=== PATIENT | female | born 1960 | race Caucasian/White ===

== ENCOUNTER 2020-07-27 12:14 | Emergency (ER) | payer OTHER, SELFPAY ==
[2020-07-27 12:47] VITALS: BP 148/69; PULSE 68; RESP 20; TEMP 36.8; O2SAT 99; BMI 3700.6
--- NOTE | 2020-07-27 13:34 | ED.EYEPROB ---
HPI - Eye Problem General Chief complaint: Eye Problems Stated complaint: EYE PAIN Time Seen by Provider: 07/27/20 13:34 History of Present Illness HPI Narrative: patient complains of pain in the left lower lid and the skin around the left lower lid, no injury, no pain in the eye itself, no vision changes, she has had some watery discharge from the eye, like does not hurt the eye This is been going on for 3 days Level of discomfort is moderate Related Data Previous Rx's Medication Instructions Recorded cephalexin [Keflex] 500 mg PO QID 7 Days #28 cap 07/27/20 erythromycin 0.5 inch OPHTHALMIC (EYE) TID 5 07/27/20 Days #3.5 g ibuprofen 600 mg PO Q6H PRN #20 tab 07/27/20 oxycodone 5 mg PO Q6H PRN #10 cap 07/27/20 Allergies Allergy/AdvReac Type Severity Reaction Status Date / Time No Known Allergies Allergy Verified 07/27/20 12:46 Review of Systems Review of Systems: there is no fever no chills no vision loss, there is some scant watery discharge there is no photosensitivity, no rash, no ear pain no jaw pain no neck pain PMFSH Past Medical History Source: nursing notes reviewed Medical History (Updated 07/27/20 @ 13:56 by TERRANCE Crane) Alcoholic cirrhosis of liver without ascites Healthy adult Social History Social History Advance Directives: No Advance Directives Information Provided: No Physical Exam Vital Signs: Vital Signs: Vital Signs Temp Pulse Resp BP Pulse Ox 07/27/20 12:47 98.2 F 68 20 148/69 H 99 Body Mass Index 3700.6 patient is A&O x3, no acute distress The facial exam and eye exam the lower lid and inferior orbital area are red, warm to the touch and tender, the conjunctiva of the lower lid of the left eye is red and inflamed, there is watery discharge, pupils equal round reactive to light, extraocular motions are intact, there is no photosensitivity Pharynx is clear Neck is supple Respiratory no acute respiratory distress Extremities full range of motion x4 Skin no rash Neuro A&O x3 Course Course Course Narrative: patient with no pain to the eye or vision changes, but does have pain in left lower lid which is swollen with some erythema warmth and tenderness around the inferior orbit consistent with periorbital cellulitis Discharge Plan Discharge Clinical Impression: Periorbital cellulitis of left eye Periorbital cellulitis Qualifiers: Laterality: left Qualified Code(s): L03.213 - Periorbital cellulitis Patient Disposition: Home, Self-Care Additional Instructions: I believe you have an infection of the skin around her lower lid and inflammation of the lower lid so we are treating with antibiotic pills and an antibiotic eye ointment Follow with primary doctor next week if not better Return to ER any time for vision loss, eye pain, spreading redness, worse pain and swelling, fever, any worse condition or any concerns I wrote you for 1 day off today as this could may be contagious so 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
[2020-07-27] MEDS: cephALEXin 500 MG CAPSULE PO (13:45)
[2020-07-27] MEDS: Erythromycin Base 0.5% Oph Oin 1 GM TUBE 1 CM EYE-LEFT (13:45)
[2020-07-27] MEDS: Ibuprofen 600 MG TABLET PO (13:45)
== END 2020-07-27 14:05 | disposition home or self-care (01) ==
PROVIDERS: Emergency Provider Emergency Medicine; PCP Student in an Organized Health Care Education/Training Program
DX: L03.213 Periorbital cellulitis (principal); H57.12 Ocular pain, left eye; Z79.899 Other long term (current) drug therapy
CPT/HCPCS: 99283

== ENCOUNTER 2020-09-13 09:19 | Outpatient (REF) | payer OTHER, SELFPAY ==
[2020-09-13 10:58] LABS: MANUAL DIFF FLAG NO
[2020-09-13 11:05] LABS: Basophils Absolute Auto 0.1 X10*3/uL (0.0-0.2); Basophils Percent Auto 0.9 % (0-2); Eosinophils Absolute Auto 0.1 X10*3/uL (0.0-0.4); Eosinophils Percent Auto 2.2 % (0-4); Hematocrit 45.9 % (37-47); Hemoglobin 15.5 g/dl (12.0-16.0); Imm Gran Abs Auto 0.02 X10*3/uL (0.00-0.03); Imm Gran Pct Auto 0.3 % (0.0-0.4); Lymphocytes Absolute Auto 2.4 X10*3/uL (1.2-4.9); Lymphocytes Percent Auto 41.6 % (20-40); Mean Corpuscular HGB Conc 33.8 g/dl (31.0-35.0); Mean Corpuscular Hemoglobin 33.8 pg (27.0-33.0); Mean Platelet Volume 10.8 fL (9.4-12.3); Monocytes Absolute Auto 0.5 X10*3/uL (0.1-1.2); Monocytes Percent Auto 8.7 % (2-11); Neutrophils Absolute Auto 2.7 X10*3/uL (2.0-8.3); Neutrophils Percent Auto 46.3 % (45-73); Platelet Count 272 X10*3/uL (160-400); Red Blood Count 4.59 X10*6/uL (4.20-5.50); Red Cell Distribution Width 12.9 % (11.0-16.0); White Blood Count 5.9 X10*3/uL (4.8-10.8)
[2020-09-13 11:43] LABS: Alanine Aminotransferase 19 U/L (0-31); Albumin Level 4.2 g/dL (3.5-5.0); Alkaline Phosphatase 54 U/L (39-117); Anion Gap 13 (12-20); Aspartate Amino Transferase 20 U/L (5-31); Bilirubin Total 0.7 mg/dL (0.0-1.0); Blood Urea Nitrogen 22 mg/dL (9-16); C Reactive Protein 0.03 mg/dL (< or = 0.50); Calcium 8.8 mg/dL (8.4-10.2); Carbon Dioxide 28 mmol/L (22-29); Chloride 102 mmol/L (96-108); Estimated Glomerular Filt Rate 53; Glucose Random 119 mg/dL (60-115); Potassium 4.3 mmol/l (3.3-5.1); Sodium 139 mmol/L (135-145); Total Protein 6.7 g/dL (6.5-8.0)
== END 2020-09-13 09:20 | disposition home or self-care (01) ==
LOC: HO.HMGCLDS 09:19
PROVIDERS: PCP Student in an Organized Health Care Education/Training Program; Visit Provider Student in an Organized Health Care Education/Training Program
DX: M05.9 Rheumatoid arthritis with rheumatoid factor, unspecified (principal); M81.0 Age-related osteoporosis without current pathological fracture; Z79.52 Long term (current) use of systemic steroids
CPT/HCPCS: 36415; 80053; 85025; 86140

== ENCOUNTER → 2020-09-17 13:53 | Outpatient (BNVA) | payer OTHER, SELFPAY | PROVIDERS: Visit Provider Student in an Organized Health Care Education/Training Program | DX: Z76.89 Persons encountering health services in other specified circumstances (principal) ==

== ENCOUNTER 2020-09-27 10:07 | Outpatient (REF) | payer OTHER, SELFPAY ==
--- NOTE | 2020-09-27 10:11 | MM_ITS ---
EXAMINATION: BONE DENSITOMETRY CLINICAL INDICATION: Age-related osteoporosis without current pathological fracture. COMPARISON: Baseline BD dated 08/23/2018. TECHNIQUE: Using a [employer] DXA System (software version: 13.1) manufactured by [employer], dual-energy x-ray absorptiometry was performed of the lumbar spine and left hip. The images are of good technical quality. Summary results are attached. FINDINGS: AP SPINE L1-L4: Current: BMD 0.799 g/cm2, Z-score -1.5, T-score -3.2, osteoporosis, 3.7% decrease from baseline (<5% change is not significant). Baseline: BMD 0.830 g/cm2. LEFT FEMUR, NECK: Current: BMD 0.698 g/cm2, Z-score -0.9, T-score -2.4, osteopenia. Baseline: BMD 0.717 g/cm2. LEFT FEMUR, TOTAL: Current: BMD 0.763 g/cm2, Z-score -0.7, T-score -1.9, osteopenia, 2.7% decrease from baseline (<5% change is not significant). Baseline: BMD 0.784 g/cm2. IDENTIFIED RISK FACTORS: Rheumatoid arthritis, tobacco use (current smoker), 3 or more alcoholic drinks/day. Early menopause, secondary osteoporosis, glucocorticoids (chronic), left oophorectomy. HISTORY OF FRACTURE: None listed. MEDICATIONS: Calcium supplements or multivitamin, vitamin D. MM/XR DEXA axial skeleton IMPRESSION: 1. DIAGNOSIS: Osteoporosis based on the lowest T-score value of -3.2 in the lumbar spine applying World Health Organization criteria. 2. 10-YEAR FRACTURE RISK PREDICTION, FRAX: Major osteoporotic fracture (clinical spine, forearm, hip or shoulder) 28.5%. Hip fracture 13.1%. 3. Treatment Recommendations: NOF guidelines recommend consideration for treatment in postmenopausal women and men age 50 and older presenting with the following: -A hip or vertebral (clinical or morphometric) fracture. -T-score less than or equal to -2.5 at the femoral neck or spine after appropriate evaluation to exclude secondary causes. -Low bone mass at the hip or spine and a 10-year fracture probability by FRAX of greater than or equal to 3% for hip fracture or greater than or equal to 20% for major osteoporotic fracture based on the [place] adapted WHO algorithm. 4. Other Recommendations: All treatment decisions require clinical judgment and consideration of individual patient factors, including patient preferences, comorbidities, previous drug use, risk factors not captured in the FRAX model (e.g. frailty, falls, vitamin D deficiency, increased bone turnover, interval significant decline in bone density) and possible under or overestimation of fracture risk by FRAX. Additional medical evaluation for secondary cause of low bone mineral density may be appropriate. FUTURE SCAN RECOMMENDATION: People with diagnosed cases of osteoporosis or at high risk for fracture should have regular bone mineral density tests. For patients eligible for Medicare, routine testing is allowed once every 2 years. The testing frequency can be increased to one year for patients who have rapidly progressing disease, those who are receiving or discontinuing medical therapy to restore bone mass, or have additional risk factors.
== END 2020-09-27 10:08 | disposition home or self-care (01) ==
LOC: HO.MAMMO 10:07
PROVIDERS: PCP Student in an Organized Health Care Education/Training Program; Visit Provider Student in an Organized Health Care Education/Training Program
DX: M81.0 Age-related osteoporosis without current pathological fracture (principal)
CPT/HCPCS: 77080

== ENCOUNTER 2021-01-08 11:18 | Outpatient (REF) | payer OTHER, SELFPAY ==
[2021-01-08 12:13] LABS: MANUAL DIFF FLAG NO
[2021-01-08 12:17] LABS: Basophils Percent Auto 0.4 % (0-2); Eosinophils Absolute Auto 0.2 X10*3/uL (0.0-0.4); Eosinophils Percent Auto 1.5 % (0-4); Hematocrit 45.2 % (37-47); Hemoglobin 15.2 g/dl (12.0-16.0); Imm Gran Abs Auto 0.04 X10*3/uL (0.00-0.03); Imm Gran Pct Auto 0.4 % (0.0-0.4); Lymphocytes Absolute Auto 2.8 X10*3/uL (1.2-4.9); Lymphocytes Percent Auto 28.9 % (20-40); Mean Corpuscular HGB Conc 33.6 g/dl (31.0-35.0); Mean Corpuscular Hemoglobin 33.4 pg (27.0-33.0); Mean Corpuscular Volume 99.3 fL (80-98); Mean Platelet Volume 9.9 fL (9.4-12.3); Monocytes Absolute Auto 0.8 X10*3/uL (0.1-1.2); Monocytes Percent Auto 8.3 % (2-11); Neutrophils Absolute Auto 5.9 X10*3/uL (2.0-8.3); Neutrophils Percent Auto 60.5 % (45-73); Platelet Count 281 X10*3/uL (160-400); Red Blood Count 4.55 X10*6/uL (4.20-5.50); Red Cell Distribution Width 13.4 % (11.0-16.0); White Blood Count 9.7 X10*3/uL (4.8-10.8)
[2021-01-08 12:53] LABS: Alanine Aminotransferase 16 U/L (0-31); Albumin Level 4.8 g/dL (3.5-5.0); Alkaline Phosphatase 52 U/L (39-117); Anion Gap 16 (12-20); Aspartate Amino Transferase 20 U/L (5-31); Bilirubin Total 0.5 mg/dL (0.0-1.0); Blood Urea Nitrogen 21 mg/dL (9-16); C Reactive Protein 0.04 mg/dL (< or = 0.50); Calcium 9.4 mg/dL (8.4-10.2); Carbon Dioxide 26 mmol/L (22-29); Chloride 101 mmol/L (96-108); Estimated Glomerular Filt Rate > 60; Glucose Random 94 mg/dL (60-115); Potassium 4.1 mmol/L (3.3-5.1); Sodium 139 mmol/L (135-145); Total Protein 7.5 g/dL (6.5-8.0)
[2021-01-08 13:05] LABS: Erythrocyte Sedimentation Rate 2 MM/HR (0-20)
[2021-01-12 13:46] LABS: Vitamin D 25-OH, D2 <4 ng/mL; Vitamin D 25-OH, D3 33 ng/mL; Vitamin D 25-OH, Total 33 ng/mL (30-100)
== END 2021-01-08 11:19 | disposition home or self-care (01) ==
LOC: HO.LAB 11:18
PROVIDERS: PCP Student in an Organized Health Care Education/Training Program; Visit Provider Student in an Organized Health Care Education/Training Program
DX: M05.9 Rheumatoid arthritis with rheumatoid factor, unspecified (principal); M81.0 Age-related osteoporosis without current pathological fracture; Z79.52 Long term (current) use of systemic steroids; Z79.899 Other long term (current) drug therapy
CPT/HCPCS: 36415; 80053; 82306; 85025; 85652; 86140

== ENCOUNTER → 2021-01-24 10:50 | Outpatient (BNVA) | payer OTHER, SELFPAY | PROVIDERS: PCP Student in an Organized Health Care Education/Training Program; Visit Provider Student in an Organized Health Care Education/Training Program | DX: B19.10 Unspecified viral hepatitis B without hepatic coma (principal) | CPT/HCPCS: 96402; J0897 ==

== ENCOUNTER 2021-02-10 09:40 | Outpatient (REF) | payer OTHER, SELFPAY ==
--- NOTE | ~2021-02-10 | US_ITS ---
EXAMINATION: US COMPLETE ABDOMEN WITH LIVER ELASTOGRAPHY CLINICAL INFORMATION: Bilateral tightness the COMPARISON: Previous abdominal ultrasound September 2019 TECHNIQUE: Real-time imaging of the abdominal viscera. Noninvasive ultrasound liver fibrosis assessment is performed using [employer] ElastPQ point quantification shear wave elastography (pSWE) with a C5-2 MHz transducer. Multiple elastography samples are obtained. FINDINGS: PANCREAS: Normal. ABDOMINAL AORTA: The proximal, middle, and distal aortic segments are normal in caliber. INFERIOR VENA CAVA: Visualized portions are normal. LIVER: Liver echotexture is slightly increased. The liver is normal in size and contour.. No focal lesion or intrahepatic biliary duct dilatation. The right lobe measures 16 cm in length. The left lobe measures 13 cm in length. Portal flow is normal/hepatopedal Shear wave liver elastography median stiffness is 1.3 m/s (reference: normal median stiffness is 1.3 m/s or less). IQR/median stiffness to assess sampling precision is 0.14 (reference: good quality data set is IQR/median stiffness of 0.15 or less). GALLBLADDER: Normal. The gallbladder is physiologically distended without evidence of stones, sludge, polyps, wall thickening or pericholecystic fluid. COMMON BILE DUCT: Normal in caliber measuring 0.5 cm in diameter. RIGHT KIDNEY: Normal No hydronephrosis. No renal calculi or focal parenchymal lesions. The kidney measures 9 cm in maximum dimension. LEFT KIDNEY: There is a 4 mm cyst in the lower pole. No hydronephrosis. No renal calculi or focal parenchymal lesions. The kidney measures 9.5 cm in maximum dimension. SPLEEN: Normal. The spleen measures 8.8 cm in maximum dimension. FREE FLUID: None. US/US abdomen comp w elastography IMPRESSION: 1. Impression: Slightly echogenic liver. Small left renal cyst. 2. Liver elastography: Normal. REFERENCE: Society of Radiologists in Ultrasound Liver Stiffness Thresholds (2020): LIVER STIFFNESS THRESHOLDS: *Liver Stiffness equal or less than 1.3 m/s: High probability of being normal. *Liver Stiffness less than 1.7 m/s: In the absence of other known clinical signs, rules out compensated advanced chronic liver disease. *Liver Stiffness 1.7-2.1 m/s: Suggestive of compensated advanced chronic liver disease but need further test for confirmation. *Liver Stiffness over 2.1 m/s: Rules in compensated advanced chronic liver disease. *Liver Stiffness over 2.4 m/s: Suggestive of clinically significant portal hypertension. QUALITY OF DATA SET: *IQR/Median value equal or less than 0.15 implies a quality data set. *IQR/Median value over 0.15 implies a poor quality data set. SIGNIFICANT CHANGE FROM PRIOR EXAM: Significant change if liver stiffness measurement is 10% or greater from prior exam. OTHER CONSIDERATIONS: The stage of liver fibrosis may be overestimated in the setting of acute hepatitis, liver inflammation, elevated liver function tests, hepatic vascular congestion, obstructive cholestasis, non-fasting state, and infiltrative diseases such as amyloidosis and lymphoma. In some patients with NAFLD, the liver stiffness thresholds for compensated advanced chronic liver disease may be lower. In causes other than viral hepatitis and NAFLD, liver stiffness thresholds are not well established.
== END 2021-02-10 09:41 | disposition home or self-care (01) ==
LOC: HO.US 09:40
PROVIDERS: Visit Provider Internal Medicine
DX: B19.10 Unspecified viral hepatitis B without hepatic coma (principal)
CPT/HCPCS: 76705; 76981

== ENCOUNTER → 2021-02-28 09:54 | Outpatient (BNVA) | payer OTHER, SELFPAY | PROVIDERS: Visit Provider Internal Medicine ==

== ENCOUNTER → 2021-05-20 09:14 | Outpatient (BNVA) | payer OTHER, SELFPAY | PROVIDERS: PCP Student in an Organized Health Care Education/Training Program; Visit Provider Student in an Organized Health Care Education/Training Program ==

== ENCOUNTER 2021-07-29 09:37 | Outpatient (REF) | payer OTHER, SELFPAY ==
[2021-07-29 10:52] LABS: MANUAL DIFF FLAG NO
[2021-07-29 11:06] LABS: Basophils Absolute Auto 0.1 X10*3/uL (0.0-0.2); Basophils Percent Auto 0.5 % (0-2); Eosinophils Absolute Auto 0.2 X10*3/uL (0.0-0.4); Eosinophils Percent Auto 1.6 % (0-4); Hematocrit 44.4 % (37-47); Hemoglobin 15.2 g/dl (12.0-16.0); Imm Gran Abs Auto 0.05 X10*3/uL (0.00-0.03); Imm Gran Pct Auto 0.5 % (0.0-0.4); Lymphocytes Absolute Auto 2.5 X10*3/uL (1.2-4.9); Lymphocytes Percent Auto 24.6 % (20-40); Mean Corpuscular HGB Conc 34.2 g/dl (31.0-35.0); Mean Corpuscular Hemoglobin 34.2 pg (27.0-33.0); Monocytes Absolute Auto 0.7 X10*3/uL (0.1-1.2); Monocytes Percent Auto 7.2 % (2-11); Neutrophils Absolute Auto 6.8 X10*3/uL (2.0-8.3); Neutrophils Percent Auto 65.6 % (45-73); Platelet Count 263 X10*3/uL (160-400); Red Blood Count 4.44 X10*6/uL (4.20-5.50); White Blood Count 10.3 X10*3/uL (4.8-10.8)
[2021-07-29 11:29] LABS: Alanine Aminotransferase 16 U/L (0-31); Albumin Level 4.6 g/dL (3.5-5.0); Alkaline Phosphatase 44 U/L (39-117); Anion Gap 14 (12-20); Aspartate Amino Transferase 18 U/L (5-31); Bilirubin Total 0.4 mg/dL (0.0-1.0); Blood Urea Nitrogen 25 mg/dL (9-16); C Reactive Protein 0.02 mg/dL (< or = 0.50); Calcium 9.8 mg/dL (8.4-10.2); Carbon Dioxide 27 mmol/L (22-29); Chloride 103 mmol/L (96-108); Estimated Glomerular Filt Rate 56; Glucose Random 104 mg/dL (60-115); Potassium 4.4 mmol/L (3.3-5.1); Sodium 140 mmol/L (135-145); Total Protein 7.3 g/dL (6.5-8.0)
[2021-07-29 11:47] LABS: Erythrocyte Sedimentation Rate 2 MM/HR (0-20)
[2021-07-29 11:50] LABS: Vitamin D 25-OH Total 39.2 ng/mL (>30)
== END 2021-07-29 09:38 | disposition home or self-care (01) ==
LOC: HO.LAB 09:37
PROVIDERS: PCP Student in an Organized Health Care Education/Training Program; Visit Provider Nurse Practitioner Family
DX: M81.0 Age-related osteoporosis without current pathological fracture (principal); M05.9 Rheumatoid arthritis with rheumatoid factor, unspecified; Z79.52 Long term (current) use of systemic steroids
CPT/HCPCS: 36415; 80053; 82306; 85025; 85652; 86140; 96372; J0897

== ENCOUNTER → 2021-11-17 10:07 | Outpatient (BNVA) | payer OTHER, SELFPAY | PROVIDERS: PCP Student in an Organized Health Care Education/Training Program; Visit Provider Nurse Practitioner Family ==

== ENCOUNTER 2021-12-05 07:55 | Outpatient (REF) | payer OTHER, SELFPAY ==
--- NOTE | ~2021-12-05 | XR_ITS ---
EXAMINATION: XR ELBOW, LEFT CLINICAL INFORMATION: Pain. COMPARISON: None TECHNIQUE: AP, lateral, and oblique views of the left elbow. FINDINGS: There is moderate soft tissue swelling along the posterior elbow joint likely olecranon bursitis. No acute fracture, dislocation or subluxation seen. No loose bodies. No anterior joint effusion seen. XR/XR elbow LT min 3V IMPRESSION: Soft tissue swelling along posterior to olecranon process likely olecranon bursitis.
== END 2021-12-05 07:56 | disposition home or self-care (01) ==
LOC: HO.HOSX 07:55
PROVIDERS: Visit Provider Physician Assistant
DX: M70.22 Olecranon bursitis, left elbow (principal)
CPT/HCPCS: 73080

== ENCOUNTER 2022-02-13 09:09 | Outpatient (REF) | payer OTHER, SELFPAY ==
[2022-02-13 09:31] LABS: MANUAL DIFF FLAG NO
[2022-02-13 10:03] LABS: Basophils Percent Auto 0.3 % (0-2); Eosinophils Absolute Auto 0.2 X10*3/uL (0.0-0.4); Eosinophils Percent Auto 2.2 % (0-4); Hematocrit 45.2 % (37.0-47.0); Imm Gran Abs Auto 0.04 X10*3/uL (0.00-0.03); Imm Gran Pct Auto 0.4 % (0.0-0.4); Lymphocytes Absolute Auto 2.5 X10*3/uL (1.2-4.9); Lymphocytes Percent Auto 28.4 % (20-40); Mean Corpuscular HGB Conc 33.2 g/dl (31.0-35.0); Mean Corpuscular Volume 99.3 fL (80.0-98.0); Mean Platelet Volume 10.6 fL (9.4-12.3); Monocytes Absolute Auto 0.7 X10*3/uL (0.1-1.2); Monocytes Percent Auto 7.5 % (2-11); Neutrophils Absolute Auto 5.4 x10*3/uL (2.0-8.3); Neutrophils Percent Auto 61.2 % (45-73); Platelet Count 266 X10*3/uL (160-400); Red Blood Count 4.55 X10*6/uL (4.20-5.50); Red Cell Distribution Width 12.9 % (11.0-16.0); White Blood Count 8.9 X10*3/uL (4.8-10.8)
[2022-02-13 10:29] LABS: Alanine Aminotransferase 27 U/L (0-31); Albumin Level 4.2 g/dL (3.5-5.0); Alkaline Phosphatase 45 U/L (39-117); Anion Gap 10 (12-20); Aspartate Amino Transferase 22 U/L (5-31); Bilirubin Total 0.4 mg/dL (0.0-1.0); Blood Urea Nitrogen 19 mg/dL (9-16); C Reactive Protein 0.03 mg/dL (< or = 0.50); Calcium 9.3 mg/dL (8.4-10.2); Carbon Dioxide 28 mmol/L (22-29); Chloride 105 mmol/L (96-108); Estimated Glomerular Filt Rate 58; Glucose Random 97 mg/dL (60-115); Potassium 4.9 mmol/L (3.3-5.1); Sodium 138 mmol/L (135-145); Total Protein 6.9 g/dL (6.5-8.0)
[2022-02-13 11:12] LABS: Erythrocyte Sedimentation Rate 2 MM/HR (0-20)
== END 2022-02-13 09:10 | disposition home or self-care (01) ==
LOC: HO.LAB 09:09
PROVIDERS: PCP Student in an Organized Health Care Education/Training Program; Visit Provider Nurse Practitioner Family
DX: M81.0 Age-related osteoporosis without current pathological fracture (principal); M05.9 Rheumatoid arthritis with rheumatoid factor, unspecified
CPT/HCPCS: 36415; 80053; 82306; 85025; 85652; 86140

== ENCOUNTER → 2022-03-09 09:04 | Outpatient (BNVA) | payer OTHER, SELFPAY | PROVIDERS: PCP Student in an Organized Health Care Education/Training Program; Visit Provider Nurse Practitioner Family | DX: M81.0 Age-related osteoporosis without current pathological fracture (principal); M05.9 Rheumatoid arthritis with rheumatoid factor, unspecified; M70.22 Olecranon bursitis, left elbow; Z79.52 Long term (current) use of systemic steroids | CPT/HCPCS: 96372; J0897 ==

== ENCOUNTER 2022-05-11 13:52 | Emergency (ER) | payer OTHER, SELFPAY ==
[2022-05-11 13:54] VITALS: BP 194/91; PULSE 90; RESP 18; TEMP 36.7; O2SAT 96; BMI 19.7
--- NOTE | 2022-05-11 17:06 | ED_ITS ---
HPI - General Adult General Chief complaint: Dental/Oral Stated complaint: Trouble swallowing Time Seen by Provider: 05/11/22 16:53 Source: patient Mode of arrival: ambulatory Limitations: no limitations History of Present Illness HPI narrative: Patient comes to the emergency room complaining of several months of having difficulty swallowing. Patient states that her throat feels very dry, and the food sticks to her throat. Patient states she is able to drink fluids. Patient states that she has had ultrasounds, x-rays, CT scans at other facility with no definitive answer. Patient states that she has a gastroenterology appointment next month. Patient requesting to see if we can give her a referral, may be she can be seen sooner. Patient has no acute complaints, no vomiting, no diarrhea, no epigastric pain. 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 Related Data Home Medications Medication Instructions Recorded Confirmed clonazepam 0.5 mg tablet 0.5 mg PO DAILY PRN 03/09/22 03/09/22 fluticasone propionate 50 spray intranasal 03/09/22 03/09/22 mcg/actuation nasal spray,suspension loratadine 10 mg tablet 10 mg PO DAILY allergies 03/09/22 03/09/22 albuterol sulfate 90 mcg/actuation 2 puff inhalation DAILY 03/10/22 aerosol inhaler fluticasone fur. 100 mcg-umeclid 1 inh inhalation DAILY 03/10/22 62.5 mcg-vilant 25 mcg inhalat.powder (Trelegy Ellipta) naltrexone 50 mg tablet 25 mg PO DAILY 03/10/22 Previous Rx's Medication Instructions Recorded denosumab 60 mg/mL subcutaneous 60 mg subcut [id number] #1 mL 01/08/21 syringe (Prolia) omeprazole 40 mg capsule,delayed 40 mg PO DAILY #30 caps 10/09/21 release calcium carbonate 600 mg-vitamin 1 tab PO DAILY #90 tabs 01/05/22 D3 20 mcg (800 unit) tablet prednisone 1 mg tablet 4 mg PO DAILY #120 tabs 03/10/22 entecavir 0.5 mg tablet 0.5 mg PO DAILY 30 days #30 tabs 04/08/22 Allergies Allergy/AdvReac Type Severity Reaction Status Date / Time environmental Allergy Intermediate Cough, Uncoded 03/09/22 10:23 nose bloc Review of Systems Review of Systems: Constitutional : No Weight loss, No Fever, No Chills, No Night Sweats, No Fatigue, No Malaise ENT/Mouth : No Hearing loss, No Ear Pain, No Nasal Congestion, No Sinus Pain, No Hoarseness, No sore throat, No Rhinorrhea, No Swallowing Difficulty Eyes: No Eye Pain, No Swelling, No Redness, No Foreign Body, No Discharge, No Vision Changes Cardiovascular : No Chest Pain, No SOB, No Dyspnea on Exertion, No Orthopnea, No Edema, No Palpitations Respiratory : No Cough, No Sputum, No Wheezing, No Smoke Exposure, No Dyspnea Gastrointestinal : Complaining of difficulty swallowing, food sticking to her as often gets, occasionally painful, No Nausea, No Vomiting, No Diarrhea, No Constipation, No abdominal Pain, No Hematochezia, No Melena Genitourinary : no irregular bleeding, No Dysuria, No Urinary Frequency, No Hematuria, No Urinary Incontinence, No Urgency, No Flank Pain, No Urinary Flow Changes, No Hesitancy Musculoskeletal : No joint pain, No Myalgias, No Joint Swelling Skin : No Skin Lesions, No rash Neuro : No Weakness, No Numbness, No Paresthesias, No Loss of Consciousness, No Dizziness, No Headache Psych : No Anxiety/Panic, No Depression, No SI/HI/AH/VH, No Social Issues, Heme/Lymph: No Bruising, No Bleeding,No Lymphadenopathy Endocrine : No Polyuria, No Polydipsia, No Temperature Intolerance [facility] Past Medical History Medical History Alcoholic cirrhosis of liver without ascites Healthy adult Osteoporosis Seropositive rheumatoid arthritis Social History Social History Alcohol intake: current Alcohol intake frequency: 3 or more drinks per day Alcohol type: beer Patient Tobacco Use Status: Current everyday Tobacco user Tobacco use type: Cigarette Cigarettes Per Day: 10 Years Smoked: 50 Current occupational status: employed 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 Oriented X3. No acute distress. Eyes: Pupils equal, round and reactive to light. ENT: Pharynx normal. Very hoarse /smoker like voice Neck: Normal inspection. Neck supple. No lymph nodes noted. No crepitus CVS: Normal heart rate and rhythm. Pulses normal. Normal S1 and S2 Respiratory: No respiratory distress. Breath sounds normal. No Wheezing. No rales Abdomen: Soft and nontender. No rigidity. No distention. Skin: Skin warm and dry. Normal skin color. Normal skin turgor. Extremities: No lower extremity edema. No Lacerations. No Rash Neuro: Oriented X 3. No motor deficit. No sensory deficit. Moving all extremities. No slurred speech. CN 2 through 12 grossly intact Psych: calm, cooperative, normal affect Course Course Course Narrative: I discussed with the patient that he needs a GI series and endoscopy. Patient already has an appointment pending. Patient's symptoms have been ongoing for over 3-4 months. No acute findings, patient still able to swallow fluids. Patient instructed to eat soft diet, Ensure, keep hydrated with plenty of fluids. Per her request, we will give her the phone number of our gastroenterologists, patient will likely slough frequently seen sooner before her trip to [place] Discharge Plan Discharge Clinical Impression: Dysphagia Patient Disposition: Home, Self-Care Instructions: Chronic Dysphagia (DC), Dysphagia (ED) Additional Instructions: Please follow-up with your primary care physician tomorrow. If you have any worsening or new symptoms, please return to the emergency room or call 911 Prescriptions: No Action omeprazole 40 mg capsule,delayed release(DR/EC) 40 mg PO DAILY Qty: 30 5RF calcium carbonate-vitamin D3 600 mg-20 mcg (800 unit) tablet 1 tab PO DAILY Qty: 90 1RF prednisone 1 mg tablet 4 mg PO DAILY Qty: 120 0RF albuterol sulfate 90 mcg/actuation HFA aerosol inhaler 2 puff inhalation DAILY naltrexone 50 mg tablet 25 mg PO DAILY Label Comments: Patient reports she is taking 50 mg daily Trelegy Ellipta 100-62.5-25 mcg blister with device 1 inh inhalation DAILY entecavir 0.5 mg tablet 0.5 mg PO DAILY 30 Days Qty: 30 5RF Prolia 60 mg/mL syringe 60 mg subcut [id number] Qty: 1 1RF loratadine 10 mg tablet 10 mg PO DAILY fluticasone propionate 50 mcg/actuation spray,suspension intranasal clonazepam 0.5 mg tablet 0.5 mg PO DAILY PRN Referrals: Daniel Osborn [Physician] - 2 days (Chronic dysphagia)
== END 2022-05-11 17:28 | disposition home or self-care (01) ==
LOC: HO.ED 17:29
PROVIDERS: Emergency Provider Emergency Medicine; PCP Student in an Organized Health Care Education/Training Program
DX: R13.11 Dysphagia, oral phase (principal); Z79.899 Other long term (current) drug therapy
CPT/HCPCS: 99282

== ENCOUNTER 2022-05-15 10:02 | Day surgery (SDC) | payer OTHER, SELFPAY ==
--- NOTE | 2022-05-14 09:19 | P.CONAN_ITS ---
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) Osteoporosis (Acute) Seropositive rheumatoid arthritis (Acute) Past Medical History Medical History Alcoholic cirrhosis of liver without ascites Healthy adult Osteoporosis Seropositive rheumatoid arthritis Social History Social History Alcohol intake: current Alcohol intake frequency: 3 or more drinks per day Alcohol type: beer Patient Tobacco Use Status: Current everyday Tobacco user Tobacco use type: Cigarette Cigarettes Per Day: 10 Years Smoked: 50 Use of substances other than those prescribed or required for medical reasons: Yes Advance Directives: No Advance Directives Information Provided: Yes Recently lost weight without trying: Yes How much weight loss: 2-13 pounds Eating poorly because of decreased appetite: No Nutrition screen score: 3 Nutrition Risks: Difficulty swallowing Current occupational status: employed 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 Meds Allergies Allergy/AdvReac Type Severity Reaction Status Date / Time environmental Allergy Intermediate Cough, Uncoded 03/09/22 10:23 nose bloc Home Medications Medication Instructions Recorded Confirmed Last Taken Type clonazepam 0.5 mg tablet 0.5 mg PO DAILY PRN 03/09/22 03/09/22 Unknown History fluticasone propionate 50 spray intranasal 03/09/22 03/09/22 Unknown History mcg/actuation nasal spray,suspension loratadine 10 mg tablet 10 mg PO DAILY allergies 03/09/22 03/09/22 Unknown History albuterol sulfate 90 mcg/actuation 2 puff inhalation DAILY 03/10/22 Unknown History aerosol inhaler fluticasone fur. 100 mcg-umeclid 1 inh inhalation DAILY 03/10/22 Unknown History 62.5 mcg-vilant 25 mcg inhalat.powder (Trelegy Ellipta) naltrexone 50 mg tablet 25 mg PO DAILY 03/10/22 Unknown History Exam Exam Date and Time: May 14, 2022 0919 Pertinent Lab Results Pertinent Lab Results: Laboratory Tests 02/13/22 02/13/22 09:27 09:27 WBC 8.9 Hgb 15.0 Hct 45.2 Plt Count 266 Sodium 138 Potassium 4.9 Chloride 105 Carbon Dioxide 28 BUN 19 H Creatinine 0.98 Laboratory Tests 02/13/22 09:27 Calcium 9.3 Total Bilirubin 0.4 AST 22 ALT 27 Alkaline Phosphatase 45 Assessment and Plan Assessment Anesthesia Assessment: Chart Reviewed Documented by User: Loly Sweet MD 05/15/22 11:35 PMFSH Active Problems Active Problems: All Active Problems (Updated 05/12/22 @ 00:01 by Background Danadine) Olecranon bursitis of left elbow (Acute) 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 (Acute) 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) Osteoporosis (Acute) Seropositive rheumatoid arthritis (Acute) Hoarse voice Smoker- using patch and decreased to 3 cigs/day H/o ETOH abuse Past Medical History Medical History Alcoholic cirrhosis of liver without ascites Healthy adult Osteoporosis Seropositive rheumatoid arthritis Family History Family history of problems with anesthesia: No Surgical History History of Problems with Anesthesia: No Social History Social History Alcohol intake: current Alcohol intake frequency: 3 or more drinks per day Alcohol type: beer Patient Tobacco Use Status: Current everyday Tobacco user Tobacco use type: Cigarette Cigarettes Per Day: 10 Years Smoked: 50 Use of substances other than those prescribed or required for medical reasons: Yes Advance Directives: No Advance Directives Information Provided: Yes Recently lost weight without trying: Yes How much weight loss: 2-13 pounds Eating poorly because of decreased appetite: No Nutrition screen score: 3 Nutrition Risks: Difficulty swallowing Current occupational status: employed 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 Meds Allergies Allergy/AdvReac Type Severity Reaction Status Date / Time environmental Allergy Intermediate Cough, Uncoded 03/09/22 10:23 nose bloc Home Medications Medication Instructions Recorded Confirmed Last Taken Type clonazepam 0.5 mg tablet 0.5 mg PO DAILY PRN 03/09/22 03/09/22 Unknown History fluticasone propionate 50 spray intranasal 03/09/22 03/09/22 Unknown History mcg/actuation nasal spray,suspension loratadine 10 mg tablet 10 mg PO DAILY allergies 03/09/22 03/09/22 Unknown History albuterol sulfate 90 mcg/actuation 2 puff inhalation DAILY 03/10/22 Unknown History aerosol inhaler fluticasone fur. 100 mcg-umeclid 1 inh inhalation DAILY 03/10/22 Unknown His tory 62.5 mcg-vilant 25 mcg inhalat.powder (Trelegy Ellipta) naltrexone 50 mg tablet 25 mg PO DAILY 03/10/22 Unknown History Exam Height,Weight and Vital Signs: Height 5 ft 4 in Weight 49.895 kg Vital Signs Temp Pulse Resp BP Pulse Ox O2 Del Method 05/15/22 11:24 98.2 F 69 17 147/74 H 98 Room Air Airway Mallampati Class: II TM Dist: >3cm Neck ROM: Full Loose/Missing/Broken Teeth: No (Caps top front, crown top right-Intact. Denies broken or loose teeth) Heart: RRR Lungs: CTAB Assessment and Plan Assessment Anesthesia Assessment: Anesthesia Plan Discussed Final Anesthetic Review Family History of Problems with Anesthesia: No History of Problems with Anesthesia: No NPO: Yes ASA Class: III Final Preanesthetic Review: No Changes in Pt Med Stat, Meds/Allgs Chart Reviewed, Consent Obtained/Reviewed and Anes Risks/Benef Reviewed Patient Risk: Intermediate Procedure Risk: Low Assessment/Block/Sedation in SS: Assess/Block/Sedation-SS Anesthetic Plan Anesthetic Plan: MAC: Disposition: Standard PACU
[2022-05-15 11:24] VITALS: BP 147/74; PULSE 69; RESP 17; TEMP 36.8; O2SAT 98; BMI 18.8
[2022-05-15] MEDS: Lactated Ringers 1,000 ML 100 ML IVCONT (11:29)
--- NOTE | 2022-05-15 12:03 | MHC.SHP ---
Pre-Procedural Eval Section A Date of Service: 05/15/22 The patient is an INPATIENT: No Changes since office visit: No Cold of Flu in the past 2 weeks, No New Medical Problems, No Changes in Medication and No Patient answered all questions The History & Physical has been completed within 30 days and I have reviewed it.: Yes Section B Chief Complaint: dysphasia Allergies: Allergies Allergy/AdvReac Type Severity Reaction Status Date / Time environmental Allergy Intermediate Cough, Uncoded 03/09/22 10:23 nose bloc Plan I have reviewed the history and physical and performed a pertinent physical examination on my patient. No changes have occurred unless specified.
[2022-05-15 12:29] VITALS: BP 114/63; PULSE 85; RESP 16; TEMP 36.6; O2SAT 98
[2022-05-15 12:44] VITALS: BP 148/70; PULSE 74; RESP 17; TEMP 36.6; O2SAT 98
--- NOTE | 2022-05-15 12:48 | PM.OP ---
Brief Operative Note Date of Service: 05/15/22 Pre-op diagnosis: dysphagia Post-op diagnosis: same (jaswinder esophagitis) Surgeon: Daniel Osborn Anesthesia: MAC Was an [employer]ode [employer]er Blasting used for this Procedure?: No Estimated blood loss (mL): 5 Pathology: other Condition: stable Disposition: PACU
--- NOTE | 2022-05-15 23:29 | OP_ITS ---
SURGEON: Daniel Osborn MD INDICATIONS: Dysphagia. PREOPERATIVE DIAGNOSIS: POSTOPERATIVE DIAGNOSIS: PROCEDURE PERFORMED: Upper endoscopy with biopsy. ESTIMATED BLOOD LOSS: COMPLICATIONS: ANESTHESIA: Monitored anesthesia care. ASSISTANTS: SPECIMENS: DESCRIPTION OF PROCEDURE: A history and physical was performed. The risks and benefits of the procedure were explained to the patient. Informed consent was obtained. The patient was placed in the left lateral decubitus position. The Olympus video gastroscope was introduced into the esophagus, stomach, and duodenum. Examination was performed. The scope was removed. She tolerated the procedure well and returned to recovery area in stable condition. FINDINGS: 1. Esophagus: There were white spots in the esophagus consistent with Rosa esophagitis. Biopsies were obtained at 25 cm and at the EG junction. There was no esophagitis. There was a small sliding hiatal hernia. 2. Stomach: The stomach showed no evidence of masses, ulcers, or polyps. Antral biopsies were obtained to rule out H pylori. 3. Duodenum: The bulb and second portion were normal. IMPRESSION: Rosa esophagitis. RECOMMENDATION: 1. Follow up the biopsy results. 2. ENT evaluation for chronic hoarseness. MD LYNDA Bueno/PATIL / [id number]
== END 2022-05-15 13:35 | disposition home or self-care (01) ==
PROVIDERS: PCP Student in an Organized Health Care Education/Training Program; Visit Provider Internal Medicine Gastroenterology
PROC: 0DJ08ZZ Inspection of Upper Intestinal Tract, Via Natural or Artificial Opening Endoscopic (ICD-10-PCS; CPT 43235; principal; 2022-05-15 12:50)
DX: R13.10 Dysphagia, unspecified (principal); B37.81 Candidal esophagitis; K44.9 Diaphragmatic hernia without obstruction or gangrene; M05.9 Rheumatoid arthritis with rheumatoid factor, unspecified; M81.0 Age-related osteoporosis without current pathological fracture; J44.9 Chronic obstructive pulmonary disease, unspecified; G47.33 Obstructive sleep apnea (adult) (pediatric); F10.10 Alcohol abuse, uncomplicated; F14.11 Cocaine abuse, in remission; B18.1 Chronic viral hepatitis B without delta-agent; R91.1 Solitary pulmonary nodule; Z79.51 Long term (current) use of inhaled steroids; F17.210 Nicotine dependence, cigarettes, uncomplicated; Z79.899 Other long term (current) drug therapy
CPT/HCPCS: 43239; 88305; 88342

== ENCOUNTER 2022-06-09 09:46 | Outpatient (REF) | payer OTHER, SELFPAY ==
[2022-06-09 10:56] LABS: INTERNATIONAL NORM RATIO 0.8 (0.9-1.1); Prothrombin Time 9.2 SEC (10.0-13.1)
[2022-06-09 11:20] LABS: Alanine Aminotransferase 18 U/L (0-31); Albumin Level 4.3 g/dL (3.5-5.0); Alkaline Phosphatase 39 U/L (39-117); Anion Gap 15 (12-20); Aspartate Amino Transferase 21 U/L (5-31); Bilirubin Direct 0.2 mg/dL (0.0-0.5); Bilirubin Total 0.6 mg/dL (0.0-1.0); Blood Urea Nitrogen 22 mg/dL (9-16); Carbon Dioxide 26 mmol/L (22-29); Chloride 104 mmol/L (96-108); Estimated Glomerular Filt Rate 59; Glucose Random 104 mg/dL (60-115); Potassium 4.2 mmol/L (3.3-5.1); Sodium 141 mmol/L (135-145); Total Protein 6.9 g/dL (6.5-8.0)
[2022-06-09 11:51] LABS: Vitamin D 25-OH Total 38.6 ng/mL (>30)
[2022-06-09 12:01] LABS: C Reactive Protein 0.03 mg/dL (< or = 0.50)
[2022-06-13 12:06] LABS: Hepatitis B Viral DNA Qn - cp <1.00 NOT DETECTED Log IU/mL (NOT DETECTED); Hepatitis B Viral DNA Qn-IU/mL <10 NOT DETECTED IU/mL (NOT DETECTED)
[2022-06-13 22:22] LABS: Hepatitis Delta Antibody NEGATIVE
[2022-06-15 15:23] LABS: FIB-ALT 14 U/L (6-29); FIB-Alpha-2-Macroglobulin 263 mg/dL (106-279); FIB-Apolipoprotein A1 227 mg/dL (101-198); FIB-GGT 20 U/L (3-65); FIB-Haptoglobin 71 mg/dL (43-212); FIB-Total Bilirubin 0.4 mg/dL (0.2-1.2); Liver Fibrosis Score 0.17; Liver Fibrosis Stage F0; Nec Inflam Act Grade A0; Nec Inflam Act Score 0.04
== END 2022-06-09 09:47 | disposition home or self-care (01) ==
LOC: HO.LAB 09:46
PROVIDERS: Internal Medicine; PCP Student in an Organized Health Care Education/Training Program; Visit Provider Nurse Practitioner Family
DX: B19.10 Unspecified viral hepatitis B without hepatic coma (principal); M05.9 Rheumatoid arthritis with rheumatoid factor, unspecified; M81.0 Age-related osteoporosis without current pathological fracture
CPT/HCPCS: 36415; 80053; 80076; 81596; 82306; 85610; 86140; 86692; 87517

== ENCOUNTER 2022-06-16 08:47 | Outpatient (REF) | payer OTHER, SELFPAY ==
--- NOTE | ~2022-06-16 | US_ITS ---
EXAMINATION: US ABDOMEN COMPLETE CLINICAL INFORMATION: Unspecified viral hepatitis B without hepatic coma. COMPARISON: Ultrasound abdomen complete 02/10/2021 and 10/02/2019. TECHNIQUE: Real-time imaging of the abdominal viscera. FINDINGS: PANCREAS: Normal. ABDOMINAL AORTA: The proximal, mid, and distal segments are normal in caliber. INFERIOR VENA CAVA: Visualized portions are normal. LIVER: The liver is normal in size. The liver contour is normal. The liver echotexture is increased. No focal hepatic lesion. There is no intrahepatic biliary duct dilatation seen. GALLBLADDER: Normal. The gallbladder is physiologically distended without evidence of stones, sludge, polyps, wall thickening or pericholecystic fluid. COMMON BILE DUCT: Normal in caliber measuring 0.5 cm in diameter. RIGHT KIDNEY: Normal. No hydronephrosis. No renal calculi or focal parenchymal lesions. The kidney measures 9.0 cm in maximum dimension. LEFT KIDNEY: Normal. No hydronephrosis. No renal calculi or focal parenchymal lesions. The kidney measures 9.9 cm in maximum dimension. SPLEEN: Normal. The spleen measures 9.4 cm in maximum dimension. FREE FLUID: None. US/US abdomen complete IMPRESSION: Echogenic liver. No evidence of cirrhosis or focal liver lesion.
== END 2022-06-16 08:48 | disposition home or self-care (01) ==
LOC: HO.US 08:47
PROVIDERS: Visit Provider Internal Medicine
DX: B19.10 Unspecified viral hepatitis B without hepatic coma (principal)
CPT/HCPCS: 76700

== ENCOUNTER 2022-09-12 09:06 | Outpatient (REF) | payer OTHER, SELFPAY ==
[2022-09-12 09:32] LABS: MANUAL DIFF FLAG NO
[2022-09-12 09:57] LABS: Basophils Absolute Auto 0.1 X10*3/uL (0.0-0.2); Basophils Percent Auto 1.1 % (0-2); Eosinophils Absolute Auto 0.2 X10*3/uL (0.0-0.4); Eosinophils Percent Auto 3.7 % (0-4); Hematocrit 47.1 % (37.0-47.0); Hemoglobin 15.8 g/dl (12.0-16.0); Imm Gran Abs Auto 0.01 X10*3/uL (0.00-0.03); Imm Gran Pct Auto 0.2 % (0.0-0.4); Lymphocytes Absolute Auto 2.5 X10*3/uL (1.2-4.9); Lymphocytes Percent Auto 39.8 % (20-40); Mean Corpuscular HGB Conc 33.5 g/dl (31.0-35.0); Mean Corpuscular Volume 98.3 fL (80.0-98.0); Mean Platelet Volume 9.9 fL (9.4-12.3); Monocytes Absolute Auto 0.7 X10*3/uL (0.1-1.2); Monocytes Percent Auto 10.6 % (2-11); Neutrophils Absolute Auto 2.8 x10*3/uL (2.0-8.3); Neutrophils Percent Auto 44.6 % (45-73); Platelet Count 273 X10*3/uL (160-400); Red Blood Count 4.79 X10*6/uL (4.20-5.50); Red Cell Distribution Width 12.6 % (11.0-16.0); White Blood Count 6.3 X10*3/uL (4.8-10.8)
[2022-09-12 10:16] LABS: Alanine Aminotransferase 18 U/L (0-31); Albumin Level 4.6 g/dL (3.5-5.0); Alkaline Phosphatase 53 U/L (39-117); Anion Gap 17 (12-20); Aspartate Amino Transferase 24 U/L (5-31); Bilirubin Total 0.6 mg/dL (0.0-1.0); Blood Urea Nitrogen 17 mg/dL (9-16); Calcium 9.5 mg/dL (8.4-10.2); Carbon Dioxide 28 mmol/L (22-29); Chloride 104 mmol/L (96-108); Estimated Glomerular Filt Rate > 60; Glucose Random 91 mg/dL (60-115); Potassium 4.5 mmol/L (3.3-5.1); Sodium 144 mmol/L (135-145); Total Protein 7.3 g/dL (6.5-8.0)
[2022-09-12 10:33] LABS: Erythrocyte Sedimentation Rate 2 MM/HR (0-20)
[2022-09-12 10:39] LABS: Vitamin D 25-OH Total 41.8 ng/mL (>30)
== END 2022-09-12 09:07 | disposition home or self-care (01) ==
LOC: HO.LAB 09:06
PROVIDERS: PCP Student in an Organized Health Care Education/Training Program; Visit Provider Nurse Practitioner Family
DX: M81.0 Age-related osteoporosis without current pathological fracture (principal); M05.9 Rheumatoid arthritis with rheumatoid factor, unspecified; Z79.899 Other long term (current) drug therapy
CPT/HCPCS: 36415; 80053; 82306; 85025; 85652

== ENCOUNTER → 2022-09-15 09:50 | Outpatient (BNVA) | payer OTHER, SELFPAY | PROVIDERS: PCP Student in an Organized Health Care Education/Training Program; Referring Provider Student in an Organized Health Care Education/Training Program; Visit Provider Nurse Practitioner Family | DX: M81.0 Age-related osteoporosis without current pathological fracture (principal); M05.9 Rheumatoid arthritis with rheumatoid factor, unspecified; M70.22 Olecranon bursitis, left elbow | CPT/HCPCS: 96372; J0897 ==

== ENCOUNTER 2022-10-29 09:13 | Outpatient (REF) | payer OTHER, SELFPAY ==
--- NOTE | ~2022-10-29 | MM_ITS ---
EXAMINATION: BONE DENSITOMETRY CLINICAL INDICATION: Osteoporosis. COMPARISON: Previous BD dated 09/27/2020 and baseline BD dated 08/23/2018. TECHNIQUE: Using a [employer] DXA System (software version: 13.1) manufactured by [employer], dual-energy x-ray absorptiometry was performed of the lumbar spine and left hip. The images are of good technical quality. Summary results are attached. FINDINGS: AP SPINE L1-L4: Current: BMD 0.842 g/cm2, Z-score -1.0, T-score -2.8, osteoporosis, 5.4% increase from previous, 1.4% increase from baseline (<5% change is not significant). Prior: BMD 0.799 g/cm2. Baseline: BMD 0.830 g/cm2. LEFT FEMUR, NECK: Current: BMD 0.720 g/cm2, Z-score -0.7, T-score -2.3, osteopenia. Prior: BMD 0.698 g/cm2. Baseline: BMD 0.717 g/cm2. LEFT FEMUR, TOTAL: Current: BMD 0.788 g/cm2, Z-score -0.4, T-score -1.7, osteopenia, 3.3% increase from previous, 0.5% increase from baseline (<5% change is not significant). Prior: BMD 0.763 g/cm2. Baseline: BMD 0.784 g/cm2. IDENTIFIED RISK FACTORS: Menopause, alcohol (3 or more units per day), glucocorticoids (chronic), hysterectomy, left oophorectomy, low body weight, low calcium intake, osteoporosis, rheumatoid arthritis, tobacco use (current smoker). HISTORY OF FRACTURE: None listed. MEDICATIONS: Calcium or multivitamin. Vitamin D. MM/XR DEXA axial skeleton IMPRESSION: 1. DIAGNOSIS: Osteoporosis based on the lowest T-score value of -2.8 in the lumbar spine applying World Health Organization criteria. 2. 10-YEAR FRACTURE RISK PREDICTION, FRAX: According to the guidelines, FRAX calculation should only be performed on patients in the osteopenia bone density category. Therefore, FRAX was not performed on this patient. 3. Treatment Recommendations: NOF guidelines recommend consideration for treatment in postmenopausal women and men age 50 and older presenting with the following: -A hip or vertebral (clinical or morphometric) fracture. -T-score less than or equal to -2.5 at the femoral neck or spine after appropriate evaluation to exclude secondary causes. -Low bone mass at the hip or spine and a 10-year fracture probability by FRAX of greater than or equal to 3% for hip fracture or greater than or equal to 20% for major osteoporotic fracture based on the [place] adapted WHO algorithm. 4. Other Recommendations: All treatment decisions require clinical judgment and consideration of individual patient factors, including patient preferences, comorbidities, previous drug use, risk factors not captured in the FRAX model (e.g. frailty, falls, vitamin D deficiency, increased bone turnover, interval significant decline in bone density) and possible under or overestimation of fracture risk by FRAX. Additional medical evaluation for secondary cause of low bone mineral density may be appropriate. FUTURE SCAN RECOMMENDATION: People with diagnosed cases of osteoporosis or at high risk for fracture should have regular bone mineral density tests. For patients eligible for Medicare, routine testing is allowed once every 2 years. The testing frequency can be increased to one year for patients who have rapidly progressing disease, those who are receiving or discontinuing medical therapy to restore bone mass, or have additional risk factors.
== END 2022-10-29 09:14 | disposition home or self-care (01) ==
LOC: HO.MAMMO 09:13
PROVIDERS: Visit Provider Nurse Practitioner Family
DX: M81.0 Age-related osteoporosis without current pathological fracture (principal)
CPT/HCPCS: 77080

== ENCOUNTER 2023-03-16 09:54 | Outpatient (REF) | payer OTHER, SELFPAY ==
[2023-03-16 12:31] LABS: Vitamin D 25-OH Total 44.3 ng/mL (>30)
[2023-03-16 12:39] LABS: Alanine Aminotransferase 16 U/L (0-31); Albumin Level 4.5 g/dL (3.5-5.0); Alkaline Phosphatase 45 U/L (39-117); Anion Gap 13 (12-20); Aspartate Amino Transferase 19 U/L (5-31); Bilirubin Total 0.5 mg/dL (0.0-1.0); Blood Urea Nitrogen 24 mg/dL (9-16); C Reactive Protein < 0.10 mg/dL (< or = 0.50); Calcium 9.9 mg/dL (8.4-10.2); Carbon Dioxide 28 mmol/L (22-29); Chloride 106 mmol/L (96-108); Estimated Glomerular Filt Rate 57; Glucose Random 102 mg/dL (60-115); Phosphorus 3.9 mg/dL (2.7-4.5); Potassium 4.4 mmol/L (3.3-5.1); Sodium 143 mmol/L (135-145); Total Protein 7.3 g/dL (6.5-8.0)
== END 2023-03-16 09:55 | disposition home or self-care (01) ==
LOC: HO.LAB 09:54
PROVIDERS: PCP Student in an Organized Health Care Education/Training Program; Visit Provider Nurse Practitioner Family
DX: M81.0 Age-related osteoporosis without current pathological fracture (principal); M05.9 Rheumatoid arthritis with rheumatoid factor, unspecified
CPT/HCPCS: 36415; 80053; 82306; 84100; 86140

== ENCOUNTER → 2023-03-24 09:29 | Outpatient (BNVA) | payer OTHER, SELFPAY | PROVIDERS: PCP Student in an Organized Health Care Education/Training Program; Visit Provider Student in an Organized Health Care Education/Training Program | DX: M81.0 Age-related osteoporosis without current pathological fracture (principal) | CPT/HCPCS: 96372; J0897 ==

== ENCOUNTER 2023-04-30 13:14 | Outpatient (REF) | payer OTHER, SELFPAY ==
[2023-04-30 14:00] LABS: MANUAL DIFF FLAG NO
[2023-04-30 14:29] LABS: Basophils Absolute Auto 0.1 X10*3/uL (0.0-0.2); Basophils Percent Auto 0.7 % (0-2); Eosinophils Absolute Auto 0.1 X10*3/uL (0.0-0.4); Eosinophils Percent Auto 1.2 % (0-4); Hematocrit 45.8 % (37.0-47.0); Hemoglobin 15.5 g/dl (12.0-16.0); Imm Gran Abs Auto 0.02 X10*3/uL (0.00-0.03); Imm Gran Pct Auto 0.2 % (0.0-0.4); Lymphocytes Absolute Auto 2.3 X10*3/uL (1.2-4.9); Lymphocytes Percent Auto 28.1 % (20-40); Mean Corpuscular HGB Conc 33.8 g/dl (31.0-35.0); Mean Corpuscular Hemoglobin 33.5 pg (27.0-33.0); Mean Corpuscular Volume 99.1 fL (80.0-98.0); Mean Platelet Volume 10.4 fL (9.4-12.3); Monocytes Absolute Auto 0.7 X10*3/uL (0.1-1.2); Monocytes Percent Auto 8.2 % (2-11); Neutrophils Percent Auto 61.6 % (45-73); Platelet Count 280 X10*3/uL (160-400); Red Blood Count 4.62 X10*6/uL (4.20-5.50); Red Cell Distribution Width 13.1 % (11.0-16.0); White Blood Count 8.1 X10*3/uL (4.8-10.8)
[2023-04-30 14:51] LABS: INTERNATIONAL NORM RATIO 0.9 (0.9-1.1); Prothrombin Time 9.7 SEC (10.0-13.1)
[2023-04-30 15:44] LABS: Alanine Aminotransferase 16 U/L (0-31); Albumin Level 4.7 g/dL (3.5-5.0); Alkaline Phosphatase 41 U/L (39-117); Anion Gap 11 (12-20); Aspartate Amino Transferase 17 U/L (5-31); Blood Urea Nitrogen 15 mg/dL (9-16); Calcium 10.3 mg/dL (8.4-10.2); Carbon Dioxide 29 mmol/L (22-29); Chloride 106 mmol/L (96-108); Estimated Glomerular Filt Rate > 60; Glucose Random 98 mg/dL (60-115); Potassium 4.2 mmol/L (3.3-5.1); Sodium 142 mmol/L (135-145); Total Protein 7.7 g/dL (6.5-8.0)
[2023-04-30 16:32] LABS: Bilirubin Direct 0.1 mg/dL (0.0-0.5); Bilirubin Total 0.4 mg/dL (0.0-1.0)
[2023-05-03 05:08] LABS: HIV AB/AG Nonreactive (Nonreactive); HIV Num 1 0.07 S/CO (0.00-0.99); ~HepC Num1 0.09 S/CO (0.00-0.79); ~Hepatitis C Antibody Nonreactive (Nonreactive)
[2023-05-03 05:50] LABS: HBS Num1 1.38 mIU/mL (0-7.99); ~Hepatitis B Surface Antibody NONREACTIVE (Nonreactive)
[2023-05-03 06:43] LABS: HBsAGNum2 Reactive; HBsAGNum3 Reactive
[2023-05-03 06:44] LABS: Hepatitis B Surface Antigen Retest CNFM (Negative)
[2023-05-03 06:47] LABS: Hepatitis B Surface Antigen Rep Reactive (Negative)
[2023-05-03 14:59] LABS: Hepatitis B Viral DNA Qn-IU/mL 251 IU/mL (NOT DETECTED)
[2023-05-05 20:08] LABS: Hepatitis Delta Antibody NEGATIVE
[2023-05-07 14:14] LABS: FIB-ALT 13 U/L (6-29); FIB-Alpha-2-Macroglobulin 316 mg/dL (106-279); FIB-Apolipoprotein A1 202 mg/dL (101-198); FIB-GGT 14 U/L (3-65); FIB-Haptoglobin 98 mg/dL (43-212); FIB-Total Bilirubin 0.4 mg/dL (0.2-1.2); Liver Fibrosis Score 0.22; Liver Fibrosis Stage F0-F1; Nec Inflam Act Grade A0; Nec Inflam Act Score 0.04
== END 2023-04-30 13:15 | disposition home or self-care (01) ==
LOC: HO.LAB 13:14
PROVIDERS: PCP Student in an Organized Health Care Education/Training Program; Visit Provider Internal Medicine
DX: Z11.4 Encounter for screening for human immunodeficiency virus [HIV] (principal); B19.10 Unspecified viral hepatitis B without hepatic coma
CPT/HCPCS: 36415; 80048; 80076; 81596; 85025; 85610; 86692; 86706; 86803; 87340; 87389; 87517

== ENCOUNTER 2023-04-30 13:14 | Outpatient (AMB) | payer OTHER, SELFPAY ==
[2023-04-30 13:21] VITALS: BP 118/68; PULSE 70; O2SAT 98; BMI 19.9
--- NOTE | 2023-04-30 13:21 | A.OFFVIS_ITS ---
Intake Vital Signs 04/30/23 13:21 Height 5 ft 4 in Weight 116 lb BMI 19.9 BP 118/68 Pulse 70 Pulse Oximetry (%) 98 Intake Visit Reasons: 1 yr f/u hep B medication Allergies environmental Allergy (Intermediate, Uncoded 04/30/23 13:22) Cough, nose bloc HPI HPI Comments History of Present Illness Details She presents for Hepatitis B evaluation. She feels well and has no complaints. She takes Entecavir. 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 Review of Systems Const All systems reviewed & are unremarkable except as noted in HPI and below Physical Exam Vital Signs: Last Vital Signs Pulse 70 04/30/23 13:21 BP 118/68 04/30/23 13:21 Pulse Ox 98 04/30/23 13:21 BMI result Body Mass Index 19.9 Const General: cooperative Orientation/consciousness: patient oriented x3 HEENT Head: Yes normal to inspection Mouth: Normal oral and palatal mucosa present Eyes General: appearance normal, both eyes and all related structures Pupils: Equal, round and reactive pupils present Resp Effort & Inspection: normal respiratory effort Cardio Rate: regular rate Rhythm: regular rhythm GI Palpation (GI): Soft to palpation and nontender General: Yes no CVA tenderness Back/Spine/Pelvis Back: no CVA tenderness Skin General skin exam: no rashes or lesions noted Neuro General: patient oriented x3 Cranial nerves: Yes CN's II-XII intact bilaterally and Yes Equal, round and reactive pupils present Extrem General: Yes normal to inspection Psych Appearance: grossly normal Assessment & Plan Assessment & Plan (1) Hepatitis B: Comment: She has had no complaints. She is taking Entecavir. Code(s): B19.10 - Unspecified viral hepatitis B without hepatic coma Plan: Would check lab results about Hepatitis B. Would continue Entecavir. See in one year. Orders: Orders Basic Metabolic Panel 04/30/23 B19.10 - Unspecified viral hepatitis B without hepatic coma Liver Fibrosis Pnl 04/30/23 B19.10 - Unspecified viral hepatitis B without hepatic coma Liver Panel 04/30/23 B19.10 - Unspecified viral hepatitis B without hepatic coma Prothrombin Time INR 04/30/23 B19.10 - Unspecified viral hepatitis B without hepatic coma Complete Blood Count Auto Diff 04/30/23 B19.10 - Unspecified viral hepatitis B without hepatic coma Hepatitis B Surface Antibody 04/30/23 B19.10 - Unspecified viral hepatitis B without hepatic coma Hepatitis B Viral DNA Qn 04/30/23 B19.10 - Unspecified viral hepatitis B without hepatic coma Hepatitis Delta Antibody 04/30/23 B19.10 - Unspecified viral hepatitis B without hepatic coma Hepatitis B Surface Antigen 04/30/23 B19.10 - Unspecified viral hepatitis B without hepatic coma Hepatitis C Antibody 04/30/23 B19.10 - Unspecified viral hepatitis B without hepatic coma HIV Ab/Ag 04/30/23 B19.10 - Unspecified viral hepatitis B without hepatic coma Medications: Refilled entecavir 0.5 mg PO DAILY 30 days 30 tabs 11RF Coding Level of Care Code Est Pt Level 3 (08582) Diagnoses Hepatitis B B19.10
== END 2023-04-30 13:56 | disposition home or self-care (01) ==
LOC: HO.HID 13:14
PROVIDERS: PCP Student in an Organized Health Care Education/Training Program; Visit Provider Internal Medicine
DX: B19.10 Unspecified viral hepatitis B without hepatic coma (principal)
CPT/HCPCS: 99213

== ENCOUNTER 2023-07-06 15:57 | Outpatient (REF) | payer OTHER, SELFPAY ==
--- NOTE | ~2023-07-06 | MM_ITS ---
EXAMINATION: MM SCREENING DIGITAL BREAST TOMOSYNTHESIS, BILATERAL CLINICAL INFORMATION: Screening. Asymptomatic. COMPARISON: Mammography: This study is compared with prior exams dating back to 2013. There are no interval examinations. TECHNIQUE: Digital breast tomosynthesis is performed in both the craniocaudal and mediolateral oblique views along with computer-aided detection (CAD). Synthesized 2D images are generated from the tomosynthesis. FINDINGS: The breasts are heterogeneously dense, which may obscure small masses (ACR BI-RADS breast composition Category c). There are no significant masses, abnormal calcifications, or other abnormalities. MM/MM tomosynthesis screening BI IMPRESSION: No mammographic evidence of malignancy. ASSESSMENT: BI-RADS BI-RADS 1 - Negative RECOMMENDATION: Routine annual mammography screening. 1 year F/U This examination should not preclude the clinical evaluation of a suspicious palpable abnormality. This patient's information was entered into a reminder system with a target due date for their next mammogram.
== END 2023-07-06 15:58 | disposition home or self-care (01) ==
LOC: HO.MAMMO 15:57
PROVIDERS: PCP Student in an Organized Health Care Education/Training Program; Visit Provider Student in an Organized Health Care Education/Training Program
DX: Z12.31 Encounter for screening mammogram for malignant neoplasm of breast (principal)
CPT/HCPCS: 77063; 77067

== ENCOUNTER → 2023-07-06 16:15 | Outpatient (BNV) | payer OTHER, SELFPAY | PROVIDERS: PCP Student in an Organized Health Care Education/Training Program; Visit Provider Radiology Diagnostic Radiology | DX: Z12.31 Encounter for screening mammogram for malignant neoplasm of breast (principal) | CPT/HCPCS: 77063; 77067 ==

== ENCOUNTER 2023-07-20 16:05 | Outpatient (AMB) | payer OTHER, SELFPAY ==
--- NOTE | 2023-07-20 16:13 | MHC.OFFVIS ---
Intake Vital Signs 07/20/23 16:14 Height 5 ft 4 in Weight 118 lb BMI 20.3 BP 123/80 Blood Pressure Location Rt brachial Position Sitting Pulse 93 Intake Visit Reasons: Colononscopy Screening Intake Note: Patient presents today as a new patient for colonoscopy screening. CC: Patient reports doing well , denies having any GI symptoms today. Allergies No Known Drug Allergies Allergy (Unknown, Verified 08/05/23 15:06) Unknown environmental Allergy (Intermediate, Uncoded 08/05/23 15:06) Cough, nose bloc HPI Colononscopy Screening HPI Details 62 year old? female here today for pre colonoscopy screening.? Patient was sent to us by her PCP.? This is her first colonoscopy screening.? Patient denies any gastrointestinal symptoms in the past or at present.? Denies any personal or family history of gastrointestinal disease, colon polyps, or cancer.? Patient seen ENT specialist once in the past was supposed to follow up, however patient treatment was interrupted as she was in rehab and never had a chance to follow-up again. Patient has a history of raspy voice for few years. History of smoking. Sober for the last few months and reports to be doing well. Patient has acid reflux and is taking pantoprazole. Patient reports that she currently has no symptoms. Denies history of difficulty with sedation or anesthesia in the past.? Negative for history of sleep apnea.? Denies any history of cardiac, renal, pulmonary, or hepatic disease.?? No history of infectious? diseases like hepatitis A, C, HIV or tuberculosis.? Patient is positive for hep B and is treated currently. Patient is seen by Dr. Zimmer. Patient is not on any anticoagulation therapy. 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 Review of Systems Const Denies weight gain and Denies weight loss ENT Reports no additional complaints, Denies dysphagia and Denies odynophagia Card Reports no additional complaints Resp Reports no additional complaints GI Denies abdominal pain, Denies belching, Denies melena, Denies bloating, Denies change in bowel habits, Denies dysphagia, Denies excessive flatus, Denies dyspepsia, Denies heartburn, Denies diarrhea, Denies loose stools, Denies nausea, Denies odynophagia and Denies vomiting Reports no additional complaints Musc Reports no additional complaints Neuro Reports no additional complaints Psych Reports no additional complaints Endo Reports no additional complaints Physical Exam Vital Signs: Last Vital Signs Pulse 93 07/20/23 16:14 BP 123/80 07/20/23 16:14 BMI result Body Mass Index 20.3 Const General: healthy appearing, no acute distress and well developed Orientation/consciousness: patient oriented x3 HEENT Head: Yes normal to inspection, Yes normocephalic and Yes atraumatic Face and sinus: Yes normal facial exam Mouth: Normal oral and palatal mucosa present Throat: Yes posterior oropharynx normal, Yes tonsils normal and Yes uvula midline Eyes General: appearance normal, both eyes and all related structures Neck Neck: Yes normal visual inspection, Yes full ROM and Yes trachea midline Thyroid: Thyroid normal Resp Effort & Inspection: normal respiratory effort, able to speak in complete sentences, no tracheal deviation and symmetric chest movement Auscultation: clear to auscultation bilaterally Cardio Rate: regular rate Heart sounds: S1 normal heart sound present and S2 normal heart sound present GI Inspection: Yes normal to inspection and No distended Palpation (GI): Soft to palpation, not firm, nontender and No hepatosplenomegaly present Auscultation: normal bowel sounds General: Yes no CVA tenderness Back/Spine/Pelvis Back: no CVA tenderness Skin General skin exam: elasticity normal, turgor normal and dry skin Neuro General: patient oriented x3 Psych Appearance: grossly normal Mental Status: mental status grossly normal Assessment & Plan Assessment & Plan (1) Hoarseness or changing voice: Code(s): R49.9 - Unspecified voice and resonance disorder (2) Lump in neck: Code(s): R22.1 - Localized swelling, mass and lump, neck (3) GERD (gastroesophageal reflux disease): Code(s): K21.9 - Gastro-esophageal reflux disease without esophagitis Qualifiers: Esophagitis presence: esophagitis presence not specified Qualified Code(s): K21.9 - Gastro-esophageal reflux disease without esophagitis (4) Screen for colon cancer: Code(s): Z12.11 - Encounter for screening for malignant neoplasm of colon Plan Will send patient for x-ray of her neck. Patient was encouraged to stop smoking. Patient was encouraged to avoid dietary triggers and late night snacking. Continue taking pantoprazole daily. The importance of staying upright for minimum 3 hours after meals discussed with patient. Patient will be sent for upper endoscopy. What to expect before during and after the procedure discussed with patient. Patient will go for colonoscopy. Denies any issues with anesthesia in the past. Currently on hep B treatment. Patient denies any cardiac or respiratory symptoms. No history of sleep apnea. Not on any anticoagulation medication. I will see patient after the procedure, sooner on as needed basis. Patient is agreeable to this plan and verbalizes understanding of instructions. She was given the opportunity to ask questions and all questions answered. Thank you for allowing me to participate in her care Orders: Orders XR soft tissue neck 07/24/23 R49.9 - Unspecified voice and resonance disorder, R22.1 - Localized swelling, mass and lump, neck Medications: New bisacodyl (Dulcolax (bisacodyl)) take 2 tabs at noon the day before your colonoscopy 10 mg (2 x 5 mg) PO ONCE 2 tabs 0RF 1 day Z12.11 - Encounter for screening for malignant neoplasm of colon polyethylene glycol 3350 (Miralax) As directed by gastroenterology department at [facility] 238 grams PO ONCE 238 grams 0RF Z12.11 - Encounter for screening for malignant neoplasm of colon Coding Level of Care Code New Pt Level 4 (41234) Diagnoses Hoarseness or changing voice R49.9 Lump in neck R22.1 Gastroesophageal reflux disease, unspecified whether esophagitis present K21.9 Esophagitis presence: esophagitis presence not specified Screen for colon cancer Z12.11 Time Spent (min) 45 Comment 30 minutes spent with patient and additional 15 minutes spent reviewing her records.
[2023-07-20 16:14] VITALS: BP 123/80; PULSE 93; BMI 20.3
== END 2023-07-20 16:27 | disposition home or self-care (01) ==
PROVIDERS: PCP Student in an Organized Health Care Education/Training Program; Visit Provider Nurse Practitioner Family
DX: R49.9 Unspecified voice and resonance disorder (principal); R22.1 Localized swelling, mass and lump, neck; K21.9 Gastro-esophageal reflux disease without esophagitis; Z12.11 Encounter for screening for malignant neoplasm of colon
CPT/HCPCS: 99204

== ENCOUNTER → 2023-07-20 16:05 | Outpatient (BNVA) | payer OTHER, SELFPAY | PROVIDERS: PCP Student in an Organized Health Care Education/Training Program; Visit Provider Nurse Practitioner Family ==

== ENCOUNTER 2023-07-24 08:45 | Outpatient (REF) | payer OTHER, SELFPAY ==
--- NOTE | ~2023-07-24 | XR_ITS ---
EXAMINATION: XR SOFT TISSUE NECK CLINICAL INDICATION: Voice change. COMPARISON: None available. TECHNIQUE: AP and lateral views of the soft tissue neck were obtained. FINDINGS: Soft tissue films of the neck demonstrate a normal larynx, pharynx and upper trachea. No soft tissue swelling or opaque foreign body is demonstrated. There are degenerative changes of the mid and lower cervical spine, most pronounced at C5-C6 and C6-C7. There are left carotid atherosclerotic calcifications. XR/XR soft tissue neck IMPRESSION: 1. Unremarkable radiographic appearance of the soft tissues of the neck. 2. There are degenerative changes of the mid and lower cervical spine, most pronounced at C5-C6 and C6-C7. 3. There are atherosclerotic calcifications of the left carotid artery, which can be more fully evaluated with dedicated carotid ultrasound, if clinically indicated.
== END 2023-07-24 08:46 | disposition home or self-care (01) ==
LOC: HO.XRAY 08:45
PROVIDERS: PCP Student in an Organized Health Care Education/Training Program; Visit Provider Nurse Practitioner Family
DX: R22.1 Localized swelling, mass and lump, neck (principal); R49.9 Unspecified voice and resonance disorder
CPT/HCPCS: 70360

== ENCOUNTER 2023-09-30 10:07 | Outpatient (REF) | payer OTHER, SELFPAY ==
[2023-09-30 10:39] LABS: MANUAL DIFF FLAG NO
[2023-09-30 11:20] LABS: Basophils Absolute Auto 0.1 X10*3/uL (0.0-0.2); Basophils Percent Auto 0.6 % (0-2); Eosinophils Absolute Auto 0.1 X10*3/uL (0.0-0.4); Eosinophils Percent Auto 1.8 % (0-4); Hematocrit 45.7 % (37.0-47.0); Hemoglobin 15.5 g/dl (12.0-16.0); Imm Gran Abs Auto 0.03 X10*3/uL (0.00-0.03); Imm Gran Pct Auto 0.4 % (0.0-0.4); Lymphocytes Absolute Auto 2.5 X10*3/uL (1.2-4.9); Lymphocytes Percent Auto 31.8 % (20-40); Mean Corpuscular HGB Conc 33.9 g/dl (31.0-35.0); Mean Corpuscular Hemoglobin 32.3 pg (27.0-33.0); Mean Corpuscular Volume 95.2 fL (80.0-98.0); Mean Platelet Volume 10.7 fL (9.4-12.3); Monocytes Absolute Auto 0.5 X10*3/uL (0.1-1.2); Monocytes Percent Auto 5.9 % (2-11); Neutrophils Absolute Auto 4.7 x10*3/uL (2.0-8.3); Neutrophils Percent Auto 59.5 % (45-73); Platelet Count 257 X10*3/uL (160-400); Red Cell Distribution Width 12.6 % (11.0-16.0); White Blood Count 7.8 X10*3/uL (4.8-10.8)
[2023-09-30 11:54] LABS: Alanine Aminotransferase 13 U/L (0-31); Albumin Level 4.5 g/dL (3.5-5.0); Alkaline Phosphatase 44 U/L (39-117); Anion Gap 11 (12-20); Aspartate Amino Transferase 16 U/L (5-31); Bilirubin Total 0.4 mg/dL (0.0-1.0); Blood Urea Nitrogen 20 mg/dL (9-16); C Reactive Protein < 0.10 mg/dL (< or = 0.50); Carbon Dioxide 30 mmol/L (22-29); Chloride 104 mmol/L (96-108); Estimated Glomerular Filt Rate 58; Glucose Random 161 mg/dL (60-115); Potassium 3.9 mmol/L (3.3-5.1); Sodium 141 mmol/L (135-145); Total Protein 7.5 g/dL (6.5-8.0)
[2023-09-30 12:00] LABS: Erythrocyte Sedimentation Rate 4 MM/HR (0-20)
[2023-09-30 12:09] LABS: Vitamin D 25-OH Total 39.7 ng/mL (>30)
== END 2023-09-30 10:08 | disposition home or self-care (01) ==
LOC: HO.LAB 10:07
PROVIDERS: PCP Student in an Organized Health Care Education/Training Program; Visit Provider Nurse Practitioner Family
DX: M05.9 Rheumatoid arthritis with rheumatoid factor, unspecified (principal); R76.8 Other specified abnormal immunological findings in serum; M81.0 Age-related osteoporosis without current pathological fracture
CPT/HCPCS: 36415; 80053; 82306; 85025; 85652; 86140

== ENCOUNTER 2023-09-30 10:51 | Outpatient (AMB) | payer OTHER, SELFPAY ==
[2023-09-30 10:52] VITALS: BP 130/90; PULSE 80; O2SAT 98; BMI 21.2
--- NOTE | 2023-09-30 10:52 | MHC.OFFVIS ---
Intake Vital Signs 09/30/23 10:52 Height 5 ft 4 in Weight 123 lb 10.869 oz BMI 21.2 BP 130/90 H Blood Pressure Location Rt brachial Position Sitting Pulse 80 Pulse Source Pulse Oximeter Pulse Oximetry (%) 98 Oxygen Delivery Method Room Air Intake Visit Reasons: Osteoporosis FU and Prolia injection Intake Note: Patient present today for Osteoporosis follow up visit and Prolia injection. Classroom Aide Required: No Accompanied by: Self / Same As Patient Allergies No Known Drug Allergies Allergy (Unknown, Verified 09/30/23 10:57) Unknown environmental Allergy (Intermediate, Uncoded 08/05/23 15:06) Cough, nose bloc Medication List - Last Reconciled 09/30/23 by Cesar Haque MD albuterol sulfate 90 mcg/actuation 2 puffs inhalation DAILY bisacodyl (Dulcolax (bisacodyl)) 10 mg (2 x 5 mg) PO ONCE 1 day calcium carbonate-vitamin D3 600 mg-20 mcg (800 unit) 1 tab PO DAILY cyanocobalamin (vitamin B-12) 500 mcg PO DAILY denosumab (Prolia) 60 mg subcut [id number] entecavir 0.5 mg PO DAILY 30 days fluticasone propionate 50 mcg/actuation sprays intranasal eoybwfeozpu-qilgdmmms-njpcimsl 100-62.5-25 mcg (Trelegy Ellipta) 1 inh inhalation DAILY PRN loratadine 10 mg PO DAILY naltrexone 25 mg PO DAILY pantoprazole 40 mg PO DAILY polyethylene glycol 3350 (Miralax) 238 grams PO ONCE sertraline 25 mg PO DAILY thiamine HCl (vitamin B1) (Vitamin B-1) 100 mg PO DAILY HPI HPI Comments History of Present Illness Details The patient returns for evaluation of her joint pain and osteoporosis. She reports she has finally stopped drinking. She has been dry now for 6 months. She is proud of this. She does note some pain in a few of the fingers mostly the right 3rd PIP joint. She was told not to take oral anti-inflammatories for this. She found the had ENT evaluation and was found to have bilateral vocal cord polyps so that may explain her hoarseness. Polypectomy is planned in the next few weeks. She was supposed to get the denosumab today but has not had the lab yet and the product has not been delivered. She apparently is still on antiviral medicine for hepatitis-B. Liver enzymes have remained normal. Previous injections of Prolia were without apparent side effects. 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 Negative for hearing change, tinnitus, oral ulcer, nose bleeds and oral dryness. Card Details: Negative chest pain, edema and syncope Resp Details: Negative for SOB, cough and wheezing GI Details: Negative indigestion/heartburn, nausea, abdominal pain, bowel changes, diarrhea, constipation and bloody stool. Psych Details: She is pleased that she has been able to stop drinking. Presently negative for anxiety, depression and stress Kj/Lymph Details: Negative for excessive bruising or bleeding. Physical Exam Vital Signs: Last Vital Signs Pulse 80 09/30/23 10:52 BP 130/90 H 09/30/23 10:52 Pulse Ox 98 09/30/23 10:52 Oxygen Delivery Method Room Air 09/30/23 10:52 BMI result Body Mass Index 21.2 APPEARANCE: Patient in no acute distress EYES no redness, pupils equal and reactive to light, eyelids normal EXTREMITIES: No edema, no calf tenderness, normal peripheral pulses. JOINT EXAM:? Cervical Spine:? Full range of motion without pain; no tenderness. Thoracic Spine:?No tenderness on palpation. Lumbar Spine:? Alignment normal.? Full range of motion without pain, no tenderness. Hands: RIGHT: Normal pain-free range of motion. Slight pain and swelling at the 3rd PIP. There is slight bony enlargement at the thumb IP and in the 3rd and 5th distal IP joints. No tenderness. Elsewhere there is no tenderness, swelling, increased warmth or erythema. Able to make a full fist and has a good beef specialist strength. Left: Nontender bony enlargement at the IP joint of the thumb and the other PIP joints. There is similar nontender bony enlargement at the 2nd and 5th D IP joints. No soft tissue swelling, flexor tendon triggering, thenar atrophy or sensory loss. Wrists:? Normal pain-free range of motion without tenderness, swelling, increased warmth or erythema. Elbows: LEFT: Normal pain free range of motion without tenderness, swelling, increased warmth or erythema. RIGHT: Normal pain free range of motion without tenderness, swelling, increased warmth or erythema. Shoulders:? Full range of motion without pain. No tenderness, weakness, swelling, increased warmth or erythema. Hips: Full range of motion without pain. Hip bursa:? LEFT: No tenderness. RIGHT: No tenderness. Knees:?? Normal pain-free range of motion without tenderness, swelling, increased warmth or erythema.? There is no effusion or crepitation Ankles:? Normal pain-free range of motion without tenderness, swelling, increased warmth or erythema. Feet:? Normal pain-free range of motion without tenderness, swelling, increased warmth or erythema. ? Results Reviewed Results Reviewed: Laboratory Tests 04/30/23 09/30/23 13:59 10:38 Hgb 15.5 Creatinine 0.97 Calcium 10.0 AST 16 ALT 13 Alkaline Phosphatase 44 25-OH Vitamin D Total 39.7 Hep B DNA copies/mL 2.40 H Assessment & Plan Assessment & Plan (1) Osteoarthritis of hands, bilateral: Code(s): M19.041 - Primary osteoarthritis, right hand; M19.042 - Primary osteoarthritis, left hand (2) Rheumatoid factor positive: Comment: Chronic hepatitis B most likely secondary to hepatitis-B. She was treated for RA for a while but it appears that the diagnosis was made an error. Her hands look more like osteoarthritis(09/2023). Code(s): R76.8 - Other specified abnormal immunological findings in serum (3) Hepatitis B: Comment: She has had no complaints. She is taking Entecavir. Code(s): B19.10 - Unspecified viral hepatitis B without hepatic coma (4) Osteoporosis: Comment: Prolia -December 2020 - present Code(s): M81.0 - Age-related osteoporosis without current pathological fracture Qualifiers: Osteoporosis type: age-related Presence of current pathological fracture: without current pathological fracture Qualified Code(s): M81.0 - Age-related osteoporosis without current pathological fracture Plan Once again exam shows signs of osteoarthritis in the interphalangeal joints. We will try some 1% diclofenac gel on that topically. She does not seem to have any signs to suggest inflammatory arthritis. I will revise her problem list to indicate a positive rheumatoid factor but no diagnosis of RA. The GFR, calcium and vitamin-D level look okay so I think it is okay that she continue with the Prolia injections. We will call her back when we get this her supply in. A follow-up in 6 months seems reasonable. Medications: New diclofenac sodium 1% apply to involved hand joints when needed 1 - 2 grams topical BID 100 grams 5RF M19.041 - Primary osteoarthritis, right hand, M19.042 - Primary osteoarthritis, left hand Coding Level of Care Code Est Pt Level 3 (69431) Diagnoses Osteoarthritis of hands, bilateral M19.041; M19.042 Rheumatoid factor positive R76.8 Hepatitis B B19.10 Age-related osteoporosis without current pathological fracture M81.0 Osteoporosis type: age-related Presence of current pathological fracture: without current pathological fracture
== END 2023-09-30 11:24 | disposition home or self-care (01) ==
PROVIDERS: PCP Student in an Organized Health Care Education/Training Program; Visit Provider Internal Medicine Rheumatology
DX: M19.041 Primary osteoarthritis, right hand (principal); M19.042 Primary osteoarthritis, left hand; R76.8 Other specified abnormal immunological findings in serum; B19.10 Unspecified viral hepatitis B without hepatic coma; M81.0 Age-related osteoporosis without current pathological fracture
CPT/HCPCS: 99213

== ENCOUNTER 2023-10-08 10:27 | Outpatient (AMB) | payer OTHER, SELFPAY ==
--- NOTE | 2023-10-13 11:12 | AM.OFFVISNUR ---
Intake Intake Visit Reasons: Prolia Allergies No Known Drug Allergies Allergy (Unknown, Verified 09/30/23 10:57) Unknown environmental Allergy (Intermediate, Uncoded 08/05/23 15:06) Cough, nose bloc Nursing Note Patient here on 10/08/23 for continued Prolia injection. Patient received injection on L upper arm, she tolerated Prolia well. Office Meds Prolia 60 mg/mL subcutaneous syringe Performing Provider: Shelli Agustin MD Performing Location: [facility] Administered by: Danielle Monahan RN on 10/08/23 11:14 Dose Route Admin Location Dispensed Lot Number Expiration Date NDC Purification Supervisor 60 mg subcut left upper arm 1 mL [id number] 01/15/26 96432-838-95 [employer] Coding Level of Care Code Procedure Only Assessment & Plan Assessment & Plan Orders: Orders AMB Denosumab Injection Patient Supplied 10/08/23 M81.0 - Age-related osteoporosis without current pathological fracture
== END 2023-10-08 11:48 | disposition home or self-care (01) ==
LOC: HO.RHE 10:27
PROVIDERS: PCP Student in an Organized Health Care Education/Training Program; Visit Provider Student in an Organized Health Care Education/Training Program
DX: M81.0 Age-related osteoporosis without current pathological fracture (principal)

== ENCOUNTER → 2023-10-08 10:27 | Outpatient (BNVA) | payer OTHER, SELFPAY | PROVIDERS: PCP Student in an Organized Health Care Education/Training Program; Visit Provider Student in an Organized Health Care Education/Training Program | DX: M81.0 Age-related osteoporosis without current pathological fracture (principal) | CPT/HCPCS: 96372; J0897 ==

== ENCOUNTER 2024-04-14 09:05 | Day surgery (SDC) | payer OTHER, SELFPAY ==
[2024-04-12 14:29] VITALS: BMI 20.3
--- NOTE | 2024-04-13 12:08 | HO.ANESPROP2 ---
Documented by User: Leanne Oliver NP 04/13/24 12:11 HPI - Anesthesia Eval Consult details Narrative: 63yo F for Upper Endoscopy and Colonoscopy ETOH cirrhosis in PHMx but no cirrhosis noted on Abd 2021 [facility] Active Problems Active Problems: All Active Problems Rheumatoid factor positive (Acute) Osteoarthritis of hands, bilateral (Acute) Olecranon bursitis of left elbow (Acute) Hepatitis B (Acute) penitentiary systemic steroid user (Acute) Osteoporosis (Acute) Past Medical History Medical History (Updated 04/13/24 @ 13:07 by Zohra Pérez) Environmental allergies Hepatitis B Osteoporosis Seropositive rheumatoid arthritis Alcoholic cirrhosis of liver without ascites Family History Family history of problems with anesthesia: No Surgical History Surgical History (Updated 04/13/24 @ 13:26 by Zohra Pérez) History of throat surgery History of esophagogastroduodenoscopy (EGD) History of Problems with Anesthesia: No Social History Social History Alcohol intake: current Alcohol intake frequency: former alcohol drinker Alcohol type: beer Patient Tobacco Use Status: Current everyday Tobacco user Tobacco use type: Cigarette Cigarettes Per Day: 6 Years Smoked: 50 Use of substances other than those prescribed or required for medical reasons: Yes Are you DNR?: No Advance Directives: No Advance Directives Information Provided: Yes Current occupational status: employed 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 [employer] Allergies Allergy/AdvReac Type Severity Reaction Status Date / Time No Known Allergies Allergy Verified 04/13/24 13:07 Home Medications ?Medication ?Instructions ?Recorded ?Confirmed ?Last Taken ?Type fluticasone propionate 50 1 spray intranasal DAILY 03/09/22 04/12/24 Unknown History mcg/actuation nasal spray,suspension loratadine 10 mg tablet 10 mg PO DAILY allergies 03/09/22 04/12/24 Unknown History albuterol sulfate 90 mcg/actuation 2 puff inhalation DAILY 03/10/22 04/12/24 Unknown History aerosol inhaler naltrexone 50 mg tablet 25 mg PO DAILY 03/10/22 04/12/24 Unknown History cyanocobalamin (vitamin B-12) 500 500 mcg PO DAILY 06/09/22 04/12/24 Unknown History mcg tablet pantoprazole 40 mg tablet,delayed 40 mg PO DAILY 06/09/22 04/12/24 Unknown History release sertraline 25 mg tablet 25 mg PO DAILY 06/09/22 04/12/24 Unknown History thiamine HCl (vitamin B1) 100 mg 100 mg PO DAILY 06/09/22 04/12/24 Unknown History tablet (Vitamin B-1) fluticasone fur. 100 mcg-umeclid 1 inh inhalation DAILY PRN 09/15/22 04/12/24 Unknown History 62.5 mcg-vilant 25 mcg Shortness Of Breath Or Wheezing inhalat.powder (Trelegy Ellipta) Exam Height,Weight and Vital Signs: Height 5 ft 4 in Weight 53.524 kg Pertinent Lab Results Pertinent Lab Results: Laboratory Tests 09/30/23 10:38 WBC 7.8 Hgb 15.5 Hct 45.7 Plt Count 257 Sodium 141 Potassium 3.9 Chloride 104 Carbon Dioxide 30 H Anion Gap 11 L BUN 20 H Creatinine 0.97 Calcium 10.0 Total Bilirubin 0.4 AST 16 ALT 13 Alkaline Phosphatase 44 Total Protein 7.5 Albumin 4.5 Assessment and Plan Assessment Anesthesia Assessment: Chart Reviewed Final Anesthetic Review Family History of Problems with Anesthesia: No History of Problems with Anesthesia: No Documented by User: Abena Roy MD 04/14/24 11:01 [facility] Past Medical History Medical History (Updated 04/13/24 @ 13:07 by Zohra Pérez) Environmental allergies Hepatitis B Osteoporosis Seropositive rheumatoid arthritis Alcoholic cirrhosis of liver without ascites Surgical History Surgical History (Updated 04/13/24 @ 13:26 by Zohra Pérez) History of throat surgery History of esophagogastroduodenoscopy (EGD) Social History Social History Alcohol intake: current Alcohol intake frequency: former alcohol drinker Alcohol type: beer Patient Tobacco Use Status: Current everyday Tobacco user Tobacco use type: Cigarette Cigarettes Per Day: 6 Years Smoked: 50 Use of substances other than those prescribed or required for medical reasons: Yes Are you DNR?: No Advance Directives: No Advance Directives Information Provided: Yes Current occupational status: employed 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 Meds Allergies Allergy/AdvReac Type Severity Reaction Status Date / Time No Known Allergies Allergy Verified 04/13/24 13:07 Home Medications ?Medication ?Instructions ?Recorded ?Confirmed ?Last Taken ?Type fluticasone propionate 50 1 spray intranasal DAILY 03/09/22 04/12/24 Unknown History mcg/actuation nasal spray,suspension loratadine 10 mg tablet 10 mg PO DAILY allergies 03/09/22 04/12/24 Unknown History albuterol sulfate 90 mcg/actuation 2 puff inhalation DAILY 03/10/22 04/12/24 Unknown History aerosol inhaler naltrexone 50 mg tablet 25 mg PO DAILY 03/10/22 04/12/24 Unknown History cyanocobalamin (vitamin B-12) 500 500 mcg PO DAILY 06/09/22 04/12/24 Unknown History mcg tablet pantoprazole 40 mg tablet,delayed 40 mg PO DAILY 06/09/22 04/12/24 Unknown History release sertraline 25 mg tablet 25 mg PO DAILY 06/09/22 04/12/24 Unknown History thiamine HCl (vitamin B1) 100 mg 100 mg PO DAILY 06/09/22 04/12/24 Unknown History tablet (Vitamin B-1) fluticasone fur. 100 mcg-umeclid 1 inh inhalation DAILY PRN 09/15/22 04/12/24 Unknown History 62.5 mcg-vilant 25 mcg Shortness Of Breath Or Wheezing inhalat.powder (Trelegy Ellipta) Exam Airway Mallampati Class: II (caps top front 2 and one lateral) TM Dist: >3cm Neck ROM: Full Heart: rrr Lungs: cta Assessment and Plan Assessment Anesthesia Assessment: Anesthesia Plan Discussed Final Anesthetic Review NPO: Yes ASA Class: II Final Preanesthetic Review: No Changes in Pt Med Stat, Meds/Allgs Chart Reviewed and Consent Obtained/Reviewed Patient Risk: Low Procedure Risk: Intermediate Anesthetic Plan Anesthetic Plan: MAC: Disposition: Standard PACU
--- OUTSIDE RECORDS SUMMARY | 2024-04-14 09:07 | XMS_ITS | Continuity of Care Document ---
Author Organization [facility] Address [address] [address]- Care Team Providers Care Air Export Coordinator Name Role Phone Rubi Osuna MD Primary Care Physician [phone] Encounter [facility] [place] Date(s): 12/10/20 - 02/26/21 [facility] [address] [id number] Attending Physician: Kade Regan MD Admitting Physician: Kade Regan MD Immunizations Given and Recorded Vaccine Date Status Refusal Reason tetanus/diphtheria/pertussis, acel(Tdap) 06/06/18 Given Medications fluticasone propionate 55 mcg/inh inhalation powder Inhalation, Every 12 hours, 0 Refills, Maintenance, 07/25/18 11:17:49 EDT Start Date: 07/25/18 Status: Ordered folic acid 1 mg oral tablet 1 mg, 1, tablet, By Mouth, Daily, Refills 0, Maintenance, 07/25/18 11:16:42 EDT Start Date: 07/25/18 Status: Ordered ibuprofen 600 mg oral tablet 600 mg, 1, tablet, By Mouth, Every 6 hours, Refills 0, Maintenance, 07/25/18 11:17:10 EDT Start Date: 07/25/18 Status: Ordered prednisoLONE 5 mg oral tablet 1 tablet = 5 mg, By Mouth, Daily, 0 Refills, Maintenance, 07/25/18 11:14:51 EDT Start Date: 07/25/18 Status: Ordered ProAir HFA 90 mcg/inh inhalation aerosol with adapter 2, puffs, Inhalation, 4 times a day, Refills 0, Maintenance, 07/25/18 11:17:23 EDT Start Date: 07/25/18 Status: Ordered pyridoxine 25 mg oral tablet 1 tablet = 25 mg, By Mouth, Daily, 0 Refills, Maintenance, 07/25/18 11:15:19 EDT Start Date: 07/25/18 Status: Ordered Sudafed 30 mg oral tablet 1 tablet = 30 mg, By Mouth, Every 6 hours, PRN as needed for cold symptoms, 0 Refills, Maintenance,07/25/18 11:16:55 EDT, Tablet Start Date: 07/25/18 Status: Ordered thiamine 100 mg oral tablet 100 mg, 1, tablet, By Mouth, Daily, Refills 0, Maintenance, 07/25/18 11:16:04 EDT Start Date: 07/25/18 Status: Ordered Trelegy Ellipta inhalation powder 1 puffs, Inhalation, Daily, j44.9, # 1 each, 3 Refills, Maintenance, 12/10/20 10:22:00 [id number] Start Date: 12/10/20 Status: Ordered Vitamin B-12 500 mcg oral tablet 1 tablet = 500 mcg, By Mouth, Daily, 0 Refills, Maintenance, 07/25/18 11:16:28 EDT Start Date: 07/25/18 Status: Ordered Social History Social History Type Response Smoking Status Current every day cheryl dukes; Started at age: 11; entered on: 07/25/18 Sex
--- OUTSIDE RECORDS SUMMARY | 2024-04-14 09:08 | XMS_ITS | Continuity of Care Document ---
Author Organization [facility] Address [address] [place] [id number]- Care Team Providers Care Mechanical Applications Engineer Name Role Phone Rubi Osuna MD Primary Care Physician Encounter [facility] Date(s): 02/10/21 - 03/29/21 [facility] [address] [place] [id number] Attending Physician: Keegan GUTIERREZ, Iván Morillo Admitting Physician: Iván Allison MD Referring Physician: Yuri Somers MD Immunizations Given and Recorded Vaccine Date [...] 1 each, 3 Refills, Maintenance, 12/10/20 10:22:00 [id number] Start Date: 12/10/20 Status: Ordered Vitamin B-12 500 mcg oral tablet 1 tablet = 500 mcg, By Mouth, Daily, 0 Refills, Maintenance, 07/25/18 11:16:28 EDT Start Date: 07/25/18 Status: Ordered Social History Social History Type Response Smoking Status Current every day cheryl dukes; Started at age: 11; entered on: 07/25/18 Sex
--- OUTSIDE RECORDS SUMMARY | 2024-04-14 09:08 | XMS_ITS | Continuity of Care Document ---
Author Organization [facility] Address [address] [place] [id number]- Care Team Providers Care Textile Designs Sales Representative Name Role Phone Rubi Osuna MD Primary Care Physician Encounter [facility] [place] Date(s): 05/14/22 - 06/13/22 [facility] [address] [id number] Allergies, Adverse Reactions, Alerts No Known Allergies Immunizations Given and Recorded Vaccine Date Status Refusal Reason tetanus/diphtheria/pertussis, acel(Tdap) 06/06/18 Given Medications Albuterol (Eqv-ProAir HFA) 90 mcg/inh inhalation aerosol 2 puffs, Inhalation, Every 6 hours, PRN Wheezing/Shortness of Breath, # 1 each, 11 Refills, Maintenance, 05/01/22 13:25:00 EDT, [facility] #[id number], Partial fill upon patient request if the prescription is for a schedule II opioid drug., 2 puf... Start Date: 05/01/22 Status: Ordered Flonase 50 mcg/inh nasal spray 1 sprays, Nares, Both, 2 times a day, # 16 Gm, 11 Refills, Maintenance, 05/01/22 13:25:00 EDT, [place], [facility] #[id number], Partial fill upon patient request if the prescription is for a schedule II opioid drug., 1 sprays Nares, Both 2 times a day Start Date: 05/01/22 Status: Ordered folic acid 1 mg oral tablet 1 mg, 1, tablet, By Mouth, Daily, Refills 0, Maintenance, 07/25/18 11:16:42 EDT Start Date: 07/25/18 Status: Ordered ibuprofen 600 mg oral tablet 600 mg, 1, tablet, By Mouth, Every 6 hours, Refills 0, Maintenance, 07/25/18 11:17:10 EDT Start Date: 07/25/18 Status: Ordered loratadine 10 mg oral tablet 10 mg, 1, tablet, By Mouth, Daily, # 30 tablet, Refills 11, Tot. Refills 11, Maintenance, 05/01/22 13:25:00 EDT, Route to Pharmacy Electronically, [facility] #[id number], Partial fill upon patient request if the prescription is for a schedule II... Start Date: 05/01/22 Status: Ordered Nicotine 7 mg/24 hour patch 1 patch, Topically, Daily, for 30 days, # 30 patch, 1 Refills, Acute 06/30/22 13:26:00 EDT, 05/01/22 13:26:00 EDT, [place], [facility] #[id number], Partial fill upon patient request if the prescription is for a schedule II opioid drug., 1 patch Top... Start Date: 05/01/22 Stop Date: 06/30/22 Status: Ordered prednisoLONE 5 mg oral tablet [...] Start Date: 07/25/18 Status: Ordered Trelegy Ellipta 200 mcg-62.5 mcg-25 mcg/inh inhalation powder 1 puffs, Inhalation, Daily, at the same time every day, # 3 each, 11 Refills, Maintenance, 05/01/2213:25:00 EDT, Powder, [facility] #[id number], Partial fill upon patient request if the prescription is for a schedule II opioid drug., 1 puffs Inh... Start Date: 05/01/22 Status: Ordered Vitamin B-12 500 mcg oral tablet 1 tablet = 500 mcg, By Mouth, Daily, 0 Refills, Maintenance, 07/25/18 11:16:28 EDT Start Date: 07/25/18 Status: Ordered Social History Social History Type Response Smoking Status Current every day cheryl dukes; Started at age: 11; entered on: 07/25/18 Sex Care Team Personnel Name: Enrrique GUTIERREZ, Rubi Loza Address: [address] [place] [address]
--- OUTSIDE RECORDS SUMMARY | 2024-04-14 09:08 | XMS_ITS | Continuity of Care Document ---
Author Organization [facility] Address [address] [place] [id number]- Care Team Providers Care Jewel Bearing Broacher Name Role Phone Rubi Osuna MD Primary Care Physician Encounter [facility] [place] Date(s): 07/27/23 - 08/26/23 [facility] [address] [place] [id number] Allergies, Adverse Reactions, Alerts No Known Allergies Immunizations Given and Recorded Vaccine Date Status Refusal Reason tetanus/diphtheria/pertussis, acel(Tdap) 06/06/18 Given Medications Albuterol (Eqv-ProAir HFA) 90 mcg/inh inhalation aerosol 2 puffs, Inhalation, Every 6 hours, PRN Wheezing/Shortness of Breath, j44.9, # 8.5 Gm, 6 Refills, Maintenance, 07/23/23 15:56:00 EDT, [facility] #[id number], Partial fill upon patient request ifthe prescription is for a schedule II opioid drug.,... Start Date: 07/23/23 Status: Ordered CALCIUMD3 600-800MG TABLETS CALCIUMD3 600-800MG TABLETS, 0 Refills, Maintenance, 07/27/23 13:44:00 EDT Start Date: 07/27/23 Status: Ordered entecavir 0.5 mg oral tablet 0 Refills, Maintenance, 07/27/23 13:45:00 EDT, Partial fill upon patient request if the prescription is for a schedule II opioid drug. Start Date: 07/27/23 Status: Ordered Flonase 50 mcg/inh nasal spray 1 sprays, Nares, Both, 2 times a day, # 16 Gm, 11 Refills, Maintenance, 05/01/22 13:25:00 EDT, [email or web address][id number], Partial fill upon patient request if the [...] 05/01/22 13:25:00 EDT, Route to Pharmacy Electronically, [facility] #[id number], Partial fill upon patient request if the prescription is for a schedule II... Start Date: 05/01/22 Status: Ordered prazosin 1 mg oral capsule Refills 0, Maintenance, 07/27/23 13:46:00 EDT, Partial fill upon patient request if the prescription is for a schedule II opioid drug. Start Date: 07/27/23 Status: Ordered prednisoLONE 5 mg oral tablet [...] 11:15:19 EDT Start Date: 07/25/18 Status: Ordered sertraline 25 mg oral tablet 0 Refills, Maintenance, 07/27/23 13:45:00 EDT, Partial fill upon patient request if the prescription is for a schedule II opioid drug. Start Date: 07/27/23 Status: Ordered Sudafed 30 mg oral tablet [...] each, 11 Refills, Maintenance, 05/01/2213:25:00 EDT, [place], [facility] #[id number], Partial fill upon patient request if the prescription is for a schedule II opioid drug., 1 puffs Inh... Start Date: 05/01/22 Status: Ordered Vitamin B-12 500 mcg oral tablet 1 tablet = 500 mcg, By Mouth, Daily, 0 Refills, Maintenance, 07/25/18 11:16:28 EDT Start Date: 07/25/18 Status: Ordered Vitamin B1 100 mg oral tablet Refills 0, Maintenance, 07/27/23 13:45:00 EDT, Partial fill upon patient request if the prescription is for a schedule II opioid drug. Start Date: 07/27/23 Status: Ordered Social History Social History Type Response Tobacco Use: 4 or less cigar ettes(less than 1/4 pack)/day in last 30 days. Interested in cessation: Yes. No Sex Patient Care team information Care Team Personnel Name: Rubi Osuna MD Position: S Outreach Member Role: PCP Address: Address: [address] [place] [address]- Care Team Related Persons Name: BRIGID SHEPHERD Address: home [address] [place] [address]
--- OUTSIDE RECORDS SUMMARY | 2024-04-14 09:08 | XMS_ITS | Continuity of Care Document ---
Author Organization [facility] Address [address] [place] [address]- Care Team Providers Care Mophead Sewer Name Role Phone Rubi Osuna MD Primary Care Physician [place] [facility] [place] 04/24/23 [facility] [address] [place] [id number] Allergies, Adverse Reactions, Alerts No Known Allergies Immunizations Given and Recorded Vaccine Date Status Refusal Reason tetanus/diphtheria/pertussis, acel(Tdap) 06/06/18 Given Medications Albuterol (Eqv-ProAir HFA) 90 mcg/inh inhalation aerosol 2 puffs, Inhalation, Every 6 hours, PRN Wheezing/Shortness of Breath, # 1 each, 11 Refills, Maintenance, 05/01/22 13:25:00 EDT, [facility] #[id number], Partial fill upon patient request if the prescription is for a schedule II opioid drug., 2 puf... Start Date: 05/01/22 Status: Ordered Flonase 50 mcg/inh nasal spray 1 sprays, Nares, Both, 2 times a day, # 16 Gm, 11 Refills, Maintenance, 05/01/22 13:25:00 EDT, [place], [facility] #[id number], Partial fill upon patient request if the [...] 05/01/22 13:25:00 EDT, Route to Pharmacy Electronically, [facility] #[id number], Partial fill upon patient request if the prescription is for a schedule II... Start Date: 05/01/22 Status: Ordered prednisoLONE 5 mg oral tablet [...] each, 11 Refills, Maintenance, 05/01/2213:25:00 EDT, [place], [facility] #[id number], Partial fill upon patient request if the prescription is for a schedule II opioid drug., 1 puffs Inh... Start Date: 05/01/22 Status: Ordered Vitamin B-12 500 mcg oral tablet 1 tablet = 500 mcg, By Mouth, Daily, 0 Refills, Maintenance, 07/25/18 11:16:28 EDT Start Date: 07/25/18 Status: Ordered Social History Social History Type Response Smoking Status Current every day sm oker; Started at age: 11; entered on: 07/25/18 Sex Patient Care team information Care Team Personnel Name: Rubi Osuna MD Position: [facility] Outreach Member Role: PCP Address: Address: [address] [place] [address]- Care Team Related Persons Name: BRIGID SHEPHERD Address: home [address] [place] [address]
--- OUTSIDE RECORDS SUMMARY | 2024-04-14 09:08 | XMS_ITS | Continuity of Care Document ---
Author Organization [facility] Address [address] [place] [address]- Care Team Providers Care Global Cmo Name Role Phone Rubi Osuna MD Primary Care Physician [phone] Encounter [facility] [place] Date(s): 07/17/22 - 11/14/22 [facility] [address] [place] [id number] Attending Physician: Sami Mandel MD Admitting Physician: Sami Mandel MD Referring Physician: Rubi Osuna MD Allergies, Adverse Reactions, Alerts No Known Allergies Immunizations Given and Recorded Vaccine Date Status Refusal Reason tetanus/diphtheria/pertussis, acel(Tdap) 06/06/18 Given Medications Albuterol (Eqv-ProAir HFA) 90 mcg/inh inhalation aerosol 2 puffs, Inhalation, Every 6 hours, PRN Wheezing/Shortness of Breath, # 1 each, 11 Refills, Maintenance, 05/01/22 13:25:00 EDT, [facility] #[id number], Partial fill upon patient request if the prescription is for a schedule II opioid drug., 2 puf... Start Date: 05/01/22 Status: Ordered Flonase 50 mcg/inh nasal spray 1 sprays, Nares, Both, 2 times a day, # 16 Gm, 11 Refills, Maintenance, 05/01/22 13:25:00 EDT, [place], [facility] #[id number], Partial fill upon patient request if the [...] 05/01/22 13:25:00 EDT, Route to Pharmacy Electronically, [facility] #[id number], Partial fill upon patient request if the [...] each, 11 Refills, Maintenance, 05/01/2213:25:00 EDT, [place], [facility] #[id number], Partial fill upon patient request if the [...] Team Personnel Name: Rubi Osuna MD Position: [facility] Outreach Member Role: PCP Address: Address: [address] [place] [address]- Care Team Related Persons Name: BRIGID SHEPHERD Address: home [address] [place] [address]
--- OUTSIDE RECORDS SUMMARY | 2024-04-14 09:08 | XMS_ITS | Continuity of Care Document ---
Author Organization [facility] Address [address] [place] [address]- Care Team Providers Care Pocket Grinder Operator Name Role Phone Rubi Osuna MD Primary Care Physician [phone] Encounter [facility] [place] Date(s): 04/03/21 - 05/03/[address] [address] Attending Physician: Sharon Fox Admitting Physician: Shaorn Fox Referring Physician: AdmtrSharon Immunizations Given and Recorded Vaccine Date Status [...] 1 each, 3 Refills, Maintenance, 12/10/20 10:22:00 [id number] Start Date: 12/10/20 Status: Ordered Vitamin B-12 500 mcg oral tablet 1 tablet = 500 mcg, By Mouth, Daily, 0 Refills, Maintenance, 07/25/18 11:16:28 EDT Start Date: 07/25/18 Status: Ordered Social History Social History Type Response Smoking Status Current every day cheryl dukes; Started at age: 11; entered on: 07/25/18 Sex
--- OUTSIDE RECORDS SUMMARY | 2024-04-14 09:08 | XMS_ITS | Continuity of Care Document ---
Author Organization [facility] Address [address] [address]- Care Team Providers Care Field Talent Qualification Specialist Name Role Phone Rubi Osuna MD Primary Care Physician [place] [facility] [place] 11/14/22 [facility] [address] [place] [id number] Attending Physician: Sharon Fox Admitting Physician: AdmSharon adams Referring Physician: AdmtrSharon Allergies, Adverse Reactions, Alerts No Known Allergies Immunizations Given and Recorded Vaccine Date Status Refusal Reason tetanus/diphtheria/pertussis, acel(Tdap) 06/06/18 Given Medications Albuterol (Eqv-ProAir HFA) 90 mcg/inh inhalation aerosol 2 puffs, Inhalation, Every 6 hours, PRN Wheezing/Shortness of Breath, # 1 each, 11 Refills, Maintenance, 05/01/22 13:25:00 EDT, [facility] #[id number], Partial fill upon patient request if the prescription is for a schedule II opioid drug., 2 puf... Start Date: 05/01/22 Status: Ordered Flonase 50 mcg/inh nasal spray 1 sprays, Nares, Both, 2 times a day, # 16 Gm, 11 Refills, Maintenance, 05/01/22 13:25:00 EDT, [place], [facility] #[id number], Partial fill upon patient request if the [...] 05/01/22 13:25:00 EDT, Route to Pharmacy Electronically, [facility] #[id number], Partial fill upon patient request if the [...] each, 11 Refills, Maintenance, 05/01/2213:25:00 EDT, [place], [facility] #[id number], Partial fill upon patient request if the [...] Team Personnel Name: Rubi Osuna MD Position: [facility] Outreach Member Role: PCP Address: Address: [address] [place] [address]- Care Team Related Persons Name: BRIGID SHEPHERD Address: home [address] [place] [address]
--- OUTSIDE RECORDS SUMMARY | 2024-04-14 09:08 | XMS_ITS | Continuity of Care Document ---
Author Organization [facility] Address [address] [address]- Care Team Providers Care Zanjero Name Role Phone Rubi Osuna MD Primary Care Physician [phone] Encounter [facility] [place] Date(s): 02/14/21 - 03/16/21 [facility] [address] [place] [id number] Attending Physician: Sharon Fox Admitting Physician: Sharon Fox Referring Physician: AdmtrSharon Immunizations Given and [...] 1 each, 3 Refills, Maintenance, 12/10/20 10:22:00 [facility] #[id number] Start Date: 12/10/20 Status: Ordered Vitamin B-12 500 mcg oral tablet 1 tablet = 500 mcg, By Mouth, Daily, 0 Refills, Maintenance, 07/25/18 11:16:28 EDT Start Date: 07/25/18 Status: Ordered Social History Social History Type Response Smoking Status Current every day cheryl dukes; Started at age: 11; entered on: 07/25/18 Sex
[2024-04-14 09:19] VITALS: BMI 20.3
[2024-04-14 09:21] VITALS: BP 211/180; PULSE 80; RESP 16; TEMP 35.8; O2SAT 97
[2024-04-14] MEDS: Lactated Ringers 1,000 ML 100 ML IVCONT (09:31)
[2024-04-14 09:41] VITALS: BP 107/55
--- NOTE | 2024-04-14 09:41 | MHC.SHP ---
Pre-Procedural Eval Section A - 24 Hr Update-Section A only Date of Service: 04/14/24 The patient is an INPATIENT: No The patient has been examined within 24 hours of the surgical procedure. The History & Physical has been completed within 30 days and I have reviewed it.: No Section B - Complete if H&P > 30 days Chief Complaint: FU of colon polyps, GERD, screen for varices Relevant Social History: Tobacco Use Present Medications: see Short Stay Collaborative assessment Medical History: Significant History (Alcoholic cirrhosis of liver without ascites Healthy adult Osteoporosis Seropositive rheumatoid arthritis) History of Previous Operations: Relevant previous surgery/procedure and date(s) (History of throat surgery, history of endoscopy) Allergies: Allergies Allergy/AdvReac Type Severity Reaction Status Date / Time No Known Allergies Allergy Verified 04/13/24 13:07 Review of Systems Sugical H&P ROS: Negative: Constitution, Cardiovascular, Respiratory and Gastrointestinal Exam Surgical H&P Exam: Normal: Heart, Normal: Lungs, Normal: Extremities and Normal: Abdomen Plan Diagnosis/Plan: Unchanged I have reviewed the history and physical and performed a pertinent physical examination on my patient. No changes have occurred unless specified. Time Spent With Patient Time: Total time managing care of this patient today ____ minutes.
--- NOTE | 2024-04-14 11:18 | HO.OPN-COLON ---
Colonoscopy Operative Note Operative Note Date of Service: 04/14/24 Narrative: FLEXIBLE TRANSORAL UPPER GASTROINTESTINAL ENDOSCOPY WITH BIOPSIES AND COLONOSCOPY TILL CECUM WITH BIOPSIES AND SNARE POLYPECTOMY Pre-op diagnosis: Colon cancer screening, GERD, cirrhosis - screen for esophageal varices Post-op diagnosis: GERD, hiatal hernia, Gastritis, Colon Polyps, Diverticulosis, hemorrhoids Endoscopist:? Lux Diamond MD Anesthesia:?MAC UPPER ENDOSCOPY Consent: Indications for the procedure and potential complications of bleeding, perforation, reaction to medications and missed diagnosis were discussed with the patient and informed consent was obtained. Instrument: Olympus GIF H 190 mid size upper endoscope Monitoring: Vital signs and clinical assessment, continuous EKG monitoring, Pulse oximetry, Carbon Dioxide monitoring and blood pressure monitoring were done throughout the procedure. Procedure: The patient was placed in the left lateral decubitis position and pre-procedure medications were administered and a bite block was placed. The endoscope was inserted into the mouth and advanced under direct vision to the third part of duodenum. A careful inspection was made as the upper endoscope was withdrawn including a retroflexed examination of the proximal stomach; Findings and interventions are described below. Findings: Larynx: Normal Esophagus: GE junction at 32 cms, hiatal hernia 32 to 35 cms. No esophagitis, Guevara's or varices noted. Stomach: Mild gastric antral erythema - biopsies were obtained from the antrum. Grade 2 flap valve and no gastric varices noted on retroflexed examination of the cardia. Duodenum: Normal bulb and descending duodenum Intervention: Biopsies as noted above COLONOSCOPY PROCEDURE NOTE Instrument: Olympus PCF H 190 L variable stiffness pediatric colonoscope Monitoring: Vital signs and clinical assessment, intermittent blood pressure monitoring, continuous EKG monitoring, Pulse oximetry and Carbon Dioxide monitoring were done throughout the procedure. Please see anesthesia flowsheet. Colon withdrawl time was 20 minutes. Procedure: The patient was placed in the left lateral decubitis position and pre-procedure medications were administered. After a digital rectal examination of the ano-rectum, the video colonoscope was inserted into the rectum and advanced through the colon to the cecum. The colonoscope was slowly withdrawn in a retrograde panoramic fashion and the colon mucosa was carefully examined including a retroflexed view of the rectum. Findings and interventions are described below. Procedure Difficulty: Colon was long and there was spasm and some loop formation Findings: Terminal Ileum: Not evaluated Cecum: Normal Ascending Colon: Normal Transverse Colon: Normal Descending Colon: Normal Sigmoid Colon: Moderate diverticulosis Rectum: Normal Ano-rectum: Moderate internal hemorrhoids Colon preparation: Good after some irrigation. [place] Bowel Preparation Scale Right colon; 2 Transverse colon: 2 Left colon; 2 (0 = Unprepared colon segment with mucosa not seen due to solid stool that cannot be cleared. 1 = Portion of mucosa of the colon segment seen, but other areas of the colon segment not well seen due to staining, residual stool and/or opaque liquid. 2 = Minor amount of residual staining, small fragments of stool and/or opaque liquid, but mucosa of colon segment seen well. 3 = Entire mucosa of colon segment seen well with no residual staining, small fragments of stool or opaque liquid) Impression and Post Procedure Diagnosis: Endoscopy Findings: ESOPHAGUS: Hiatal hernia 32 to 35 cms. No esophagitis, Guevara's or varices noted. STOMACH: Mild gastric antral erythema - biopsies were obtained from the antrum. Grade 2 flap valve and no gastric varices noted on retroflexed examination of the cardia. Colonoscopy Findings: No polyps were detected Moderate diverticulosis seen in the sigmoid colon Moderate hemorrhoids on retroflexed exam. Plan: Pt has a FU appointment on 04/28/24 with Lisa Sarah MD Repeat Colonoscopy in 10 years (earlier if pt develops a change in bowel habits or rectal bleeding) Above findings were reviewed with the patient and relevant handouts were given and the discharge area.
[2024-04-14 11:57] VITALS: BP 109/49; PULSE 69; RESP 16; TEMP 36.3; O2SAT 98
[2024-04-14 12:12] VITALS: BP 116/68; PULSE 57; RESP 16; TEMP 36.3; O2SAT 98
== END 2024-04-14 12:40 | disposition home or self-care (01) ==
PROVIDERS: PCP Student in an Organized Health Care Education/Training Program; Visit Provider Internal Medicine Gastroenterology
PROC: (CPT 45378; principal; 2024-04-14 10:10)
DX: Z12.11 Encounter for screening for malignant neoplasm of colon (principal); K57.30 Diverticulosis of large intestine without perforation or abscess without bleeding; K64.8 Other hemorrhoids; K21.9 Gastro-esophageal reflux disease without esophagitis; K29.50 Unspecified chronic gastritis without bleeding; K44.9 Diaphragmatic hernia without obstruction or gangrene; K70.30 Alcoholic cirrhosis of liver without ascites; B19.10 Unspecified viral hepatitis B without hepatic coma; M81.0 Age-related osteoporosis without current pathological fracture; M05.9 Rheumatoid arthritis with rheumatoid factor, unspecified; J30.2 Other seasonal allergic rhinitis; Z79.51 Long term (current) use of inhaled steroids; Z79.899 Other long term (current) drug therapy; F17.210 Nicotine dependence, cigarettes, uncomplicated
CPT/HCPCS: 45378; 43239; 88305; 88313; 88342; J2704

== ENCOUNTER → 2024-04-14 09:05 | Outpatient (BNV) | payer OTHER, SELFPAY | PROVIDERS: PCP Student in an Organized Health Care Education/Training Program; Visit Provider Internal Medicine Gastroenterology | DX: Z12.11 Encounter for screening for malignant neoplasm of colon (principal); K57.30 Diverticulosis of large intestine without perforation or abscess without bleeding; K64.8 Other hemorrhoids; K21.9 Gastro-esophageal reflux disease without esophagitis; K74.60 Unspecified cirrhosis of liver; K29.70 Gastritis, unspecified, without bleeding | CPT/HCPCS: 43239; 45378 ==

== ENCOUNTER 2024-06-06 11:16 | Outpatient (REF) | payer OTHER, SELFPAY ==
[2024-06-06 12:06] LABS: MANUAL DIFF FLAG NO
[2024-06-06 12:13] LABS: Basophils Absolute Auto 0.1 X10*3/uL (0.0-0.2); Basophils Percent Auto 0.7 % (0-2); Eosinophils Absolute Auto 0.1 X10*3/uL (0.0-0.4); Eosinophils Percent Auto 1.6 % (0-4); Hematocrit 46.8 % (37.0-47.0); Imm Gran Abs Auto 0.03 X10*3/uL (0.00-0.03); Imm Gran Pct Auto 0.3 % (0.0-0.4); Lymphocytes Absolute Auto 2.4 X10*3/uL (1.2-4.9); Lymphocytes Percent Auto 27.2 % (20-40); Mean Corpuscular HGB Conc 34.2 g/dl (31.0-35.0); Mean Corpuscular Hemoglobin 32.8 pg (27.0-33.0); Mean Corpuscular Volume 95.9 fL (80.0-98.0); Mean Platelet Volume 10.3 fL (9.4-12.3); Monocytes Absolute Auto 0.6 X10*3/uL (0.1-1.2); Monocytes Percent Auto 6.8 % (2-11); Neutrophils Absolute Auto 5.5 x10*3/uL (2.0-8.3); Neutrophils Percent Auto 63.4 % (45-73); Platelet Count 268 X10*3/uL (160-400); Red Blood Count 4.88 X10*6/uL (4.20-5.50); Red Cell Distribution Width 13.2 % (11.0-16.0); White Blood Count 8.7 X10*3/uL (4.8-10.8)
[2024-06-06 12:22] LABS: INTERNATIONAL NORM RATIO 0.8 (0.9-1.1); Prothrombin Time 9.8 SEC (11.1-13.3)
[2024-06-06 12:36] LABS: Alanine Aminotransferase 14 U/L (0-31); Albumin Level 4.9 g/dL (3.5-5.0); Alkaline Phosphatase 69 U/L (39-117); Anion Gap 14 (12-20); Aspartate Amino Transferase 20 U/L (5-31); Bilirubin Direct 0.3 mg/dL (0.0-0.5); Bilirubin Total 0.7 mg/dL (0.0-1.0); Blood Urea Nitrogen 16 mg/dL (9-16); Calcium 10.9 mg/dL (8.4-10.2); Carbon Dioxide 30 mmol/L (22-29); Chloride 103 mmol/L (96-108); Estimated Glomerular Filt Rate 52; Glucose Random 100 mg/dL (60-115); Potassium 4.5 mmol/L (3.3-5.1); Sodium 142 mmol/L (135-145); Total Protein 8.3 g/dL (6.5-8.0)
[2024-06-06 12:58] LABS: HBS Num1 1.85 mIU/mL (0-7.99); ~HepC Num1 0.17 S/CO (0.00-0.79); ~Hepatitis B Surface Antibody NONREACTIVE (Nonreactive); ~Hepatitis C Antibody Nonreactive (Nonreactive)
[2024-06-06 14:22] LABS: HBsAGNum2 Reactive; HBsAGNum3 Reactive; Hepatitis B Surface Antigen Retest CNFM (Negative)
[2024-06-10 20:09] LABS: Hepatitis B Viral DNA Qn-IU/mL 790 IU/mL (NOT DETECTED); Hepatitis Delta Antibody NEGATIVE
[2024-06-14 01:24] LABS: FIB-ALT 13 U/L (6-29); FIB-Alpha-2-Macroglobulin 382 mg/dL (106-279); FIB-Apolipoprotein A1 237 mg/dL (101-198); FIB-GGT 14 U/L (3-65); FIB-Haptoglobin 109 mg/dL (43-212); FIB-Total Bilirubin 0.6 mg/dL (0.2-1.2); Liver Fibrosis Score 0.26; Liver Fibrosis Stage F0-F1; Nec Inflam Act Grade A0; Nec Inflam Act Score 0.04
== END 2024-06-06 11:17 | disposition home or self-care (01) ==
LOC: HO.LAB 11:16
PROVIDERS: PCP Student in an Organized Health Care Education/Training Program; Visit Provider Internal Medicine
DX: B19.10 Unspecified viral hepatitis B without hepatic coma (principal)
CPT/HCPCS: 36415; 80048; 80076; 81596; 85025; 85610; 86692; 86706; 86803; 87340; 87517

== ENCOUNTER → 2024-06-07 13:41 | Outpatient (BNVA) | payer OTHER, SELFPAY | PROVIDERS: PCP Student in an Organized Health Care Education/Training Program; Visit Provider Internal Medicine ==

== ENCOUNTER 2024-06-12 10:18 | Outpatient (AMB) | payer OTHER, SELFPAY ==
--- NOTE | 2024-06-12 10:51 | AM.OFFVISNUR ---
Intake Visit Reasons: osteoporosis/prolia inj Allergies No Known Allergies Allergy (Verified 04/13/24 13:07) Office Meds Prolia 60 mg/mL subcutaneous syringe Performing Provider: Shelli Agustin MD [place] [facility] [facility] Administered by: Alexandria Cam RN on 06/12/24 10:51 Dose Route Admin Location Dispensed Lot Number Expiration Date NDC Arch Support Maker 60 mg subcut left upper arm 1 mL [id number] 09/16/26 61268-266-36 [facility] Comments: Consent form signed. Pt tolerated injection well. Pt denies any problems with previous injections Assessment & Plan Assessment & Plan Orders: Orders AMB Denosumab Injection Practice Supplied Today M81.0 - Age-related osteoporosis without current pathological fracture Medications: New Prolia (denosumab) 60 mg subcut ONCE 1 mL 0RF NS M81.0 - Age-related osteoporosis without current pathological fracture
== END 2024-06-12 10:47 | disposition home or self-care (01) ==
PROVIDERS: PCP Student in an Organized Health Care Education/Training Program; Visit Provider Student in an Organized Health Care Education/Training Program
DX: M81.0 Age-related osteoporosis without current pathological fracture (principal)

== ENCOUNTER → 2024-06-12 10:18 | Outpatient (BNVA) | payer OTHER, SELFPAY | PROVIDERS: PCP Student in an Organized Health Care Education/Training Program; Visit Provider Student in an Organized Health Care Education/Training Program | DX: M81.0 Age-related osteoporosis without current pathological fracture (principal) | CPT/HCPCS: 96372; J0897 ==

== ENCOUNTER 2024-07-08 07:55 | Outpatient (REF) | payer OTHER, SELFPAY ==
--- NOTE | ~2024-07-08 | MM_ITS ---
EXAMINATION: MM SCREENING DIGITAL BREAST TOMOSYNTHESIS, BILATERAL CLINICAL INFORMATION: Screening. Asymptomatic. COMPARISON: Mammography: Comparison is made with available priors TECHNIQUE: Digital breast mammography with tomosynthesis is performed in both the craniocaudal and mediolateral oblique views along with computer-aided detection (CAD). FINDINGS: The breasts are extremely dense, which lowers the sensitivity of mammography (ACR BI-RADS breast composition Category d). There are no significant masses, abnormal calcifications, or other abnormalities. MM/MM tomosynthesis screening BI IMPRESSION: No mammographic evidence of malignancy. ASSESSMENT: BI-RADS BI-RADS 1 - Negative RECOMMENDATION: Routine annual mammography screening. 1 year F/U This examination should not preclude the clinical evaluation of a suspicious palpable abnormality. This patient's information was entered into a reminder system with a target due date for their next mammogram. Electronically signed by: Lilia Caceres DO 07/20/2024 08:55 AM EDT
== END 2024-07-08 07:56 | disposition home or self-care (01) ==
LOC: HO.MAMMO 07:55
PROVIDERS: PCP Student in an Organized Health Care Education/Training Program; Visit Provider Student in an Organized Health Care Education/Training Program
DX: Z12.31 Encounter for screening mammogram for malignant neoplasm of breast (principal)
CPT/HCPCS: 77063; 77067

== ENCOUNTER → 2024-07-08 08:00 | Outpatient (BNV) | payer OTHER, SELFPAY | PROVIDERS: PCP Student in an Organized Health Care Education/Training Program; Visit Provider Internal Medicine | DX: Z12.31 Encounter for screening mammogram for malignant neoplasm of breast (principal) | CPT/HCPCS: 77063; 77067 ==

== ENCOUNTER 2024-08-16 09:43 | Outpatient (AMB) | payer OTHER, SELFPAY ==
--- NOTE | 2024-08-16 09:47 | A.OFFVIS_ITS ---
Vital Signs 08/16/24 09:56 Height 5 ft 4 in Weight 120 lb 9.486 oz BMI 20.7 BP 120/70 Blood Pressure Location Rt brachial Position Sitting Pulse 66 Pulse Source Pulse Oximeter Pulse Oximetry (%) 98 Oxygen Delivery Method Room Air Intake Visit Reasons: Osteoporosis/lm Intake Note: Patient presents for Osteoporosis. Allergies No Known Allergies Allergy (Verified 08/16/24 09:50) Medication List - Last Reconciled 08/16/24 by Shelli Agustin MD albuterol sulfate 90 mcg/actuation 2 puffs inhalation DAILY calcium carbonate-vitamin D3 600 mg-20 mcg (800 unit) 1 tab PO DAILY cyanocobalamin (vitamin B-12) 500 mcg PO DAILY denosumab (Prolia) 60 mg subcut [id number] diclofenac sodium 1% 1 - 2 grams topical BID entecavir 0.5 mg PO DAILY 30 days loratadine 10 mg PO DAILY naltrexone 25 mg PO DAILY pantoprazole 40 mg PO DAILY sertraline 25 mg PO DAILY thiamine HCl (vitamin B1) (Vitamin B-1) 100 mg PO DAILY HPI Comments Details: This is a 63-year-old female with osteoarthritis and osteoporosis who presents for follow-up. She states that she has been feeling relatively well. She has been quite active. She states that she has been having minimal left-sided neck pain over the last 4 days, improving with heating pad. 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 Review of Systems ENT Reports neck pain Musc Denies arthralgias, Denies joint swelling and Reports neck pain Physical Exam Vital Signs: Last Vital Signs Pulse 66 08/16/24 09:56 BP 120/70 08/16/24 09:56 Pulse Ox 98 08/16/24 09:56 Oxygen Delivery Method Room Air 08/16/24 09:56 BMI result Body Mass Index 20.7 Const General: cooperative, healthy appearing and comfortable Nutritional Appearance: average body habitus Orientation/consciousness: patient oriented x3 Limitations: no limitations HEENT Head: Yes normocephalic and Yes atraumatic Mouth: moist mucous membranes Resp Effort & Inspection: normal respiratory effort and able to speak in complete sentences Cardio Rate: regular rate Neuro General: patient oriented x3 Extrem Other: Osteoarthritic changes of both hands with no active synovitis Normal range of motion of hands, elbows, shoulders without pain No knee pain with full flexion-extension bilaterally Minimal muscular left sided neck pain with neck rotation to the right Assessment & Plan Assessment & Plan (1) Osteoporosis: Comment: Prolia -December 2020 - present Code(s): M81.0 - Age-related osteoporosis without current pathological fracture Category: Medical Qualifiers: Osteoporosis type: age-related Presence of current pathological fracture: without current pathological fracture Qualified Code(s): M81.0 - Age- related osteoporosis without current pathological fracture Plan: This is a 63-year-old female with osteoporosis who presents for follow-up. Doing very well overall. No acute complaints today. Remains on Prolia injection every 6 months. Last Prolia injection was 05/2024. Her DEXA from 2022 showed improved bone density. Repeat DEXA scan and bone turnover markers before next visit in 3 months. Follow-up in 3 months Plan I spent 16 minutes reviewing patient's chart, evaluating patient, ordering diagnostic workup, counseling patient and documenting in the chart Orders: Orders XR DEXA axial skeleton 10/23/24 M81.0 - Age-related osteoporosis without current pathological fracture Collagen Type I C-Telopeptide 3 Months M81.0 - Age-related osteoporosis without current pathological fracture Vitamin D 25-OH (D2 and D3) 3 Months Z11.59 - Encounter for screening for other viral diseases Comprehensive Met. Panel 3 Months M81.0 - Age-related osteoporosis without current pathological fracture Coding Level of Care Code Est Pt Level 3 (81628) Diagnoses Age-related osteoporosis without current pathological fracture M81.0 Osteoporosis type: age-related Presence of current pathological fracture: without current pathological fracture
[2024-08-16 09:56] VITALS: BP 120/70; PULSE 66; O2SAT 98; BMI 20.7
== END 2024-08-16 10:25 | disposition home or self-care (01) ==
LOC: HO.RHE 09:43
PROVIDERS: PCP Student in an Organized Health Care Education/Training Program; Visit Provider Student in an Organized Health Care Education/Training Program
DX: M81.0 Age-related osteoporosis without current pathological fracture (principal)
CPT/HCPCS: 99213

== ENCOUNTER → 2024-08-16 09:43 | Outpatient (BNVA) | payer OTHER, SELFPAY | PROVIDERS: PCP Student in an Organized Health Care Education/Training Program; Visit Provider Student in an Organized Health Care Education/Training Program ==

== ENCOUNTER 2024-08-21 13:57 | Outpatient (AMB) | payer OTHER, SELFPAY ==
--- OUTSIDE RECORDS SUMMARY | 2024-08-21 13:59 | XMS_ITS | Continuity of Care Document ---
Author Organization [facility] Pul[facility] M edicine Address [address] [place] [address]- Care Team Providers Care Inspector Government Property Name Role Phone Rubi Osuna MD Primary Care Physician [place] [facility] [place]13[place]24 - 08/12/24 [facility] [address] [place] [id number] Allergies, Adverse Reactions, Alerts No Known Allergies Immunizations Given and Recorded Vaccine Date Status Refusal Reason tetanus/diphtheria/pertussis, acel(Tdap) 06/06/18 Given Medications Albuterol (Eqv-ProAir HFA) 90 mcg/inh inhalation aerosol 2 puffs, Inhalation, Every 6 hours, PRN Wheezing/Shortness of Breath, j44.9, # 8.5 Gm, 6 Refills, Maintenance, 07/23/23 15:56:00 EDT, [facility] #[id number], Partial fill upon patient request ifthe prescription [...] Gm, 11 Refills, Maintenance, 05/01/22 13:25:00 EDT, [facility] #[id number], Partial fill upon patient request if the [...] 05/01/22 13:25:00 EDT, Route to Pharmacy Electronically, [facility] #[id number], Partial fill upon patient request if the [...] each, 11 Refills, Maintenance, 05/01/2213:25:00 EDT, [place], [facility] #[id number], Partial fill upon patient request if the [...] Outreach Member Role: PCP Address: Address: [address] [place] [address]- Care Team Related Persons Name: BRIGID SHEPHERD Address: home [address] [place] [address]
--- OUTSIDE RECORDS SUMMARY | 2024-08-21 13:59 | XMS_ITS | Continuity of Care Document ---
Author Organization [facility] Pulmonary M ed[facility] Address [address] [place] [address]- Care Team Providers Care Production Shift Supervisor Name Role Phone Rubi Osuna MD Primary Care Physician [phone] Encounter [facility] Date(s): 03/31/24 - 07/29/24 [facility] Pulmonary Medicine [address] [place] [id number] Attending Physician: Sami Mandel MD Admitting Physician: Sami Mandel MD Referring Physician: Rubi Osuna MD Allergies, Adverse Reactions, Alerts No Known Allergies Immunizations Given and Recorded Vaccine Date Status Refusal Reason tetanus/diphtheria/pertussis, acel(Tdap) 06/06/18 Given Medications Albuterol (Eqv-ProAir HFA) 90 mcg/inh inhalation aerosol 2 puffs, Inhalation, Every 6 hours, PRN Wheezing/Shortness of Breath, j44.9, # 8.5 Gm, 6 Refills, Maintenance, 07/23/23 15:56:00 EDT, [facility] #[id number], Partial fill upon patient request ifthe prescription [...] Gm, 11 Refills, Maintenance, 05/01/22 13:25:00 EDT, [place], [facility] #[id number], Partial fill upon patient request if the [...] 05/01/22 13:25:00 EDT, Route to Pharmacy Electronically, [facility] #[id number], Partial fill upon patient request if the [...] each, 11 Refills, Maintenance, 05/01/2213:25:00 EDT, [place], [facility] #[id number], Partial fill upon patient request if the [...] Team Personnel Name: Rubi Osuna MD Position: [facility] Outreach Member Role: PCP Address: Address: [address] [place] [address]- [place] Care Team Related Persons Name: BRIGID SHEPHERD Address: home [address] [place] [address]
--- OUTSIDE RECORDS SUMMARY | 2024-08-21 13:59 | XMS_ITS | Continuity of Care Document ---
Author Organization [facility] Pul[facility] ed[facility] Address [address] [place] [address]- Care Team Providers Care Auditing Clerk Name Role Phone Rubi Osuna MD Primary Care Physician [phone] [place] [facility] [place] 06/22/24 - 07/22/24 [facility] Pul[facility] Medicine [address] [place] [id number] Allergies, Adverse Reactions, Alerts No Known Allergies Immunizations Given and Recorded Vaccine Date Status Refusal Reason tetanus/diphtheria/pertussis, acel(Tdap) 06/06/18 Given Medications Albuterol (Eqv-ProAir HFA) 90 mcg/inh inhalation aerosol 2 puffs, Inhalation, Every 6 hours, PRN Wheezing/Shortness of Breath, j44.9, # 8.5 Gm, 6 Refills, Maintenance, 07/23/23 15:56:00 EDT, [facility] #[id number], Partial fill upon patient request ifthe prescription [...] Gm, 11 Refills, Maintenance, 05/01/22 13:25:00 EDT, [facility] #[id number], Partial fill upon patient request if the [...] to Pharmacy Electronically, [facility] #[id number], Partial fill upon patient request if the [...] each, 11 Refills, Maintenance, 05/01/2213:25:00 EDT, [place], [facility] #[id number], Partial fill upon patient request if the [...] Team Personnel Name: Rubi Osuna MD Position: [facility] Outreach Member Role: PCP Address: Address: [address] [place] [address]- Care Team Related Persons Name: BRIGID SHEPHERD Address: home [address] [place] [address]
--- NOTE | 2024-08-27 22:18 | MHC.OFFVIS ---
Intake Visit Reasons: lab follow up ok per Allergies No Known Allergies Allergy (Verified 08/16/24 09:50) HPI HPI lab follow up ok per : Details: She has viral load 790 Hepatitis B. She has no complaints This is an televisit. Her u/s liver negative. 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 She is not taking Entecavir. Code(s): B19.10 - Unspecified viral hepatitis B without hepatic coma Category: Medical Plan: Restart Entecavir daily with 11 refills. See in one year. Coding Level of Care Code Tele Est Pt Level 3 (75720) Diagnoses Hepatitis B B19.10
== END 2024-08-21 13:57 | disposition home or self-care (01) ==
LOC: HO.HID 13:57
PROVIDERS: PCP Student in an Organized Health Care Education/Training Program; Visit Provider Internal Medicine
DX: B19.10 Unspecified viral hepatitis B without hepatic coma (principal)
CPT/HCPCS: 99213

== ENCOUNTER 2024-10-22 12:52 | Emergency (ER) | payer OTHER, SELFPAY ==
--- NOTE | ~2024-10-22 | XR_ITS ---
CLINICAL HISTORY: left middle toe pain 3 view left foot Comparison: None Findings: Bones intact. No dislocations. No significant arthritic change or erosions. No ankle effusion. No radiopaque foreign body. IMPRESSION: 1. No acute findings. This document has been electronically signed by: John Evans MD on 10/22/2024 15:08:41
[2024-10-22 13:07] VITALS: BP 119/53; PULSE 62; RESP 18; TEMP 36.8; O2SAT 98; BMI 20.5
--- NOTE | 2024-10-22 13:09 | ED.GENADULT ---
HPI - General Adult General Chief complaint: Extremity Injury, Lower Stated complaint: Toe Injury Left Foot Time Seen by Provider: 10/22/24 13:12 Source: patient Mode of arrival: ambulatory Limitations: no limitations History of Present Illness ED Provider: Clinton Stephenson HPI narrative: 64 yold femal of osteoarthrits, Hepaitits B presents to the ED for left middle toe since last night after hitting her foot by accident on her bandmates metal shoe. Patient denies falling to the ground or any other trauma. Related Data Home Medications ?Medication ?Instructions ?Recorded ?Confirmed loratadine 10 mg tablet 10 mg PO DAILY allergies 03/09/22 04/12/24 albuterol sulfate 90 mcg/actuation 2 puff inhalation DAILY 03/10/22 04/12/24 aerosol inhaler naltrexone 50 mg tablet 25 mg PO DAILY 03/10/22 04/12/24 cyanocobalamin (vitamin B-12) 500 500 mcg PO DAILY 06/09/22 04/12/24 mcg tablet pantoprazole 40 mg tablet,delayed 40 mg PO DAILY 06/09/22 04/12/24 release sertraline 25 mg tablet 25 mg PO DAILY 06/09/22 04/12/24 thiamine HCl (vitamin B1) 100 mg 100 mg PO DAILY 06/09/22 04/12/24 tablet (Vitamin B-1) denosumab 60 mg/mL subcutaneous 60 mg subcut [id number] 06/08/24 syringe (Prolia) Previous Rx's ?Medication ?Instructions ?Recorded diclofenac sodium 1 % topical gel 1 - 2 g topical BID #100 grams 09/30/23 entecavir 0.5 mg tablet 0.5 mg PO DAILY 30 days #30 tabs 08/28/24 calcium 600 mg (as 1 tab PO DAILY #90 tabs 08/29/24 carbonate)-vitamin D3 20 mcg (800 unit) tablet Allergies Allergy/AdvReac Type Severity Reaction Status Date / Time No Known Allergies Allergy Verified 10/22/24 13:08 Review of Systems Review of Systems: Left middle toe pain. 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 Physical Exam ED Vital Signs: Vital Signs - 24 hr 10/22/24 13:07 10/22/24 16:20 10/22/24 16:55 Temperature 98.3 F 97.6 F 97.6 F Pulse Rate 62 65 65 Respiratory Rate 18 18 18 Blood Pressure 119/53 L 111/49 L 111/49 L Pulse Oximetry 98 99 99 Oxygen Delivery Method Room Air Room Air Room Air BMI result Body Mass Index 20.5 Const General: cooperative, healthy appearing, comfortable, no acute distress, well developed, alert, awake and Physically active Orientation/consciousness: oriented to time and patient oriented x3 HENNV Head: Yes normal to inspection, Yes No palpable skull fracture present, Yes normocephalic and Yes atraumatic Ears: hearing grossly normal bilaterally, external ears normal, TM's normal bilaterally, TM normal on the right, TM normal on the left, EAC's normal, mastoids normal and no periauricular adenopathy Eyes General: appearance normal, both eyes and all related structures Neck Neck: Yes normal visual inspection, Yes full ROM, Yes no lymphadenopathy, Yes no meningeal signs, Yes trachea midline, Yes supple, No anterior neck swelling and No tender Chest Chest palpation & inspection: normal inspection of the chest and normal palpation of entire chest wall Resp Effort & Inspection: normal respiratory effort and able to speak in complete sentences Auscultation: clear to auscultation bilaterally Cardio Jugular venous distension: no JVD Heart sounds: S1 normal heart sound present and S2 normal heart sound present GI Inspection: Yes normal to inspection Palpation (GI): Soft to palpation, not firm, nontender, no guarding and not rigid General: Yes no CVA tenderness Back/Spine/Pelvis Back: no CVA tenderness and No back tenderness Skin General skin exam: no rashes or lesions noted, elasticity normal and turgor normal Neuro General: oriented to time, patient oriented x3, gait normal, tone normal, moves all extremities, Normal light touch and pain sensation, no meningeal signs, no focal motor deficits, CN's II-XI intact bilaterally and normal sensation to monofilament Extrem General: Yes normal to inspection, Yes full ROM and Yes capillary refill normal Ankle/foot/toe images: 1. positive for tenderness on palpation with ecchymosis. negative for deformity. negative for erythema. REst of extremity normal. motor, neuro, and vascular exam is intact. Psych Appearance: grossly normal, well kempt and not disheveled Course Course Course Narrative: RME: patient presents to the ED for left middle toe pain after hitting her big toe on her bandmate's metal job that occurred yesterday. Physical exam shows 3rd middle toe bruising. xray ordered Medications Administered Discontinued Medications Generic Name Dose Route Start Last Admin Trade Name Freq PRN Reason Stop Dose Admin Ibuprofen 800 mg 10/22/24 16:06 10/22/24 16:41 Ibuprofen 800 Mg Tablet PO 10/22/24 16:07 800 mg ONCE ONE Administration Medical Decision Making Medical Decision Making [facility] Narrative: 64-year-old female with left middle toe pain after hitting foot on metal shoe last night. Patient states no other complaints. Patient well-appearing. Patient is sent for x-ray. 4:01pm: X-ray negative for fracture. Patient explained worrisome signs and informed to return to the ED immediately. Not suspecting cellulitis, DVT, compartment syndrome, osteomyelitis, necrotizing fasciitis, arterial occlusion, lymphangitis, or any other concerning symptoms Differential Diagnosis Differential Diagnoses: The differential diagnosis associated with the presentation includes (fracture, contusion, disclocation) Admission/Observation Consideration of admission/observation: Escalation of care including admission/observation considered Lab Data [facility] Lab Attestation statement: I reviewed the patient's lab results. Independent Interpretation I performed an independent interpretation of an: Plain X-Ray Radiology Impression Discussion of test interpretation with radiology: I have reviewed the radiologist's reading. Independent Historian Clinical information obtained from an independent historian. History obtained from or confirmed by: Other (prior visits) External Record Review External record reviewed: Other (patient) Prescription Management I considered prescription management with: Pain Medication Discharge Plan Discharge Clinical Impression: Contusion, Sprain of toe Patient Disposition: Home, Self-Care Instructions: Contusion in Adults (ED), Foot Sprain (ED) Additional Instructions: X-ray came back negative for fracture. You can take [id number] Tylenol Motrin for pain relief. Return to the ED immediately for increased swelling, redness, bluish black discoloration, red streaks, calf pain, or any other concerning symptoms. Comparison: None Findings: Bones intact. No dislocations. No significant arthritic change or erosions. No ankle effusion. No radiopaque foreign body. IMPRESSION: 1. No acute findings. This document has been electronically signed by: John Evans MD on 10/22/2024 15:08:41 Prescriptions: No Action albuterol sulfate 90 mcg/actuation HFA aerosol inhaler 2 puff inhalation DAILY naltrexone 50 mg tablet 25 mg PO DAILY Patient Comments: Patient reports she is taking 50 mg daily Prolia 60 mg/mL syringe 60 mg subcut [id number] entecavir 0.5 mg tablet 0.5 mg PO DAILY 30 Days Qty: 30 11RF calcium carbonate-vitamin D3 600 mg-20 mcg (800 unit) tablet 1 tab PO DAILY Qty: 90 1RF cyanocobalamin (vitamin B-12) 500 mcg tablet 500 mcg PO DAILY sertraline 25 mg tablet 25 mg PO DAILY thiamine HCl (vitamin B1) [Vitamin B-1] 100 mg tablet 100 mg PO DAILY pantoprazole 40 mg tablet,delayed release (DR/EC) 40 mg PO DAILY loratadine 10 mg tablet 10 mg PO DAILY diclofenac sodium 1 % gel 1 - 2 g topical BID Qty: 100 5RF Rx Instructions: apply to involved hand joints when needed Stand Alone Forms: Work/School Release Interventions: ED Discharge Assessment Last Done: 10/22/24 16:55 Discharge Date/Time: 10/22/24 16:55 Print Language: Moldovan
[2024-10-22 16:20] VITALS: BP 111/49; PULSE 65; RESP 18; TEMP 36.4; O2SAT 99
[2024-10-22] MEDS: Ibuprofen 800 MG TABLET PO (16:41)
[2024-10-22 16:55] VITALS: BP 111/49; PULSE 65; RESP 18; TEMP 36.4; O2SAT 99
== END 2024-10-22 16:55 | disposition home or self-care (01) ==
PROVIDERS: Emergency Provider Emergency Medicine; PCP Student in an Organized Health Care Education/Training Program
DX: S93.505A Unspecified sprain of left lesser toe(s), initial encounter (principal); S90.32XA Contusion of left foot, initial encounter; M79.672 Pain in left foot; Y29.XXXA Contact with blunt object, undetermined intent, initial encounter; Y93.9 Activity, unspecified; Y92.89 Other specified places as the place of occurrence of the external cause; Y99.8 Other external cause status
CPT/HCPCS: 73620; 99283

== ENCOUNTER → 2024-10-22 14:16 | Outpatient (BNV) | payer OTHER, SELFPAY | PROVIDERS: Emergency Provider Emergency Medicine; PCP Student in an Organized Health Care Education/Training Program; Visit Provider Nuclear Medicine | DX: M79.675 Pain in left toe(s) (principal) | CPT/HCPCS: 73620 ==

== ENCOUNTER 2024-12-12 09:19 | Outpatient (REF) | payer OTHER, SELFPAY ==
[2024-12-12 10:07] LABS: Anion Gap 14 (12-20); Blood Urea Nitrogen 27 mg/dL (9-16); Carbon Dioxide 28 mmol/L (22-29); Chloride 103 mmol/L (96-108); Estimated Glomerular Filt Rate 56; Glucose Random 103 mg/dL (60-115); Potassium 4.2 mmol/L (3.3-5.1); Sodium 141 mmol/L (135-145)
--- OUTSIDE RECORDS SUMMARY | 2024-12-12 10:16 | XMS_ITS | Encounter Summary ---
Author Organization [employer] Address [address] [facility] [address] [place] [address] Care Team Providers Care Carbon Coating Machine Operator Name Role Phone Rubi Osuna MD Primary Care Provider [phone] Reason for Visit * Reason Comments Med Refill Encounter Details Date Type Department Care Team ([facility] Contact Info) Description 12/11/2024 Refill [facility] [address] [place] [address] Rubi Osuna MD [address] [place] [address] Social History Tobacco Use Types Packs/Day Years Used Date Smoking Tobacco: Former Cigarettes Alcohol Use Standard Drinks/Week Comments Not Currently 0 (1 standard drink = 0.6 oz pur e alcohol) Depression Answer Date Recorded Patient Health Questionnaire-9 Score 1 05/26/2023 Housing Stability Answer Date Recorded What is your housing situation today? Not on sky e 08/04/[address] you li ve. Do you have problems with any of the following? None of the above 08/04/2023 Food Insecurity Answer Date Recorded Within the past 12 months, y ou worried that your food would run out before you got money to buy more: Never True 08/04/2023 Within the past 12 months,th e food you bought just didn't last and you didn't have enough money to get more: Never True Transportation Answer Date Recorded In the past 12 months, has l ack of transportation kept you from medical appts, meetings, work or from getting things needed for daily living? No 08/04/2023 Utilities Answer Date Recorded In the past 12 months, has t he electric, gas, oil or water company threatened to shut off services in your home? No 08/04/2023 Depression Answer Date Recorded Patient Health Questionnaire-2 Score 1 05/26/2023 Comments Unknown Sex and Gender Information Value Date Recorded Sex Assigned at Female 08/17/2022 10:15 AM EDT Legal Sex Female 10:15 AM EDT Gender Identity Female 08/17/2022 10:15 AM EDT Sexual Orientation Straight 08/17/2022 10 :15 AM EDT documented as of this encounter Plan of Treatment Upcoming Encounters Date Type Department Care Team (Late st Contact Info) Description 12/20/2024 2:00 PM EST Office Visit [facility] ADULT D[facility]AL [address] [place] [address] Devin Wilcox documented as of this encounter Visit Diagnoses Not on filedocumented in this encounter Additional Health Concerns Assessment Noted Time PHQ-9 Depression Total Score: 1 05/26/20 23 10:03 AM EDT documented as of this encounter Care Teams Carbon Coating Machine Operator Relationship Specialty Start Date End Date Rubi Osuna MD [address] [place] [phone] PCP - General Family Medicine 11/17/13 documented as of this encounter
--- OUTSIDE RECORDS SUMMARY | 2024-12-12 10:16 | XMS_ITS | Encounter Summary ---
Author Organization [employer] Address [address] [facility] 7[address] [place] [address] Care Team Providers Care Wholesale Manager Name Role Phone Rubi Osuna MD Primary Care Provider [phone] Encounter Details Date Type Department Care Team (Latest Contact Info) Description 01/15/[address] [facility] CONVERSIONS Dental, Provider, DDS Social History Tobacco Use Types Packs/Day Years Used Date Smoking Tobacco: Never Assessed Comments Unknown Sex and Gender Information Value Date Recorded Sex Assigned at Female 08/17/2022 10:15 AM EDT Legal Sex Female 10:15 AM EDT Gender Identity Female 08/17/2022 10:15 AM EDT Sexual Orientation Straight 08/17/2022 10 :15 AM EDT documented as of this encounter Plan of Treatment Upcoming Encounters Date Type Department Care Team ( st Contact Info) Description 12/20/2024 2:00 PM EST Office Visit [facility] [address] [place] [address] Devin Wilcox documented as of this encounter Visit Diagnoses Not on filedocumented in this encounter Care Teams Wholesale Manager Relationship Specialty Start Date End Date Rubi Osuna MD [address] [place] [id number] PCP - General Family Medicine 11/17/13 documented as of this encounter
--- OUTSIDE RECORDS SUMMARY | 2024-12-12 10:16 | XMS_ITS | Encounter Summary ---
Author Organization [employer] Address [address] [facility] [address] 7[address] [place] [address] Care Team Providers Care Gamma Operator Name Role Phone Rubi Osuna MD Primary Care Provider [phone] Encounter Details Date Type Department Care Team (Late st Contact Info) Description 12/12/2024 Orders Only GENERIC EXTERNAL DATA DEPARTMENT Provider, Generic External Data Social History Tobacco Use Types Packs/Day Years [...] Description 12/20/2024 2:00 PM EST Office Visit [facility] ADULT [facility] [address] [place] [address] Devin Wilcox documented as of this encounter Procedures Procedure Name Priority Date/Time Associated Diagnosis Comments BASIC METABOLIC PANEL Routine 12/12/2024 9:28 AM EST documented in this encounter Results * (ABNORMAL) Basic Metabolic Panel (12/12/2024 9:28 AM EST) Sodium 141 135 - 145 mmol/L [facility] Potassium 4.2 3.3 - 5.1 mmol/L [facility] Chloride 103 96 - 108 mmol/L [facility] Carbon Dioxide 28 22 - 29 mmol/L [facility] Anion Gap 14 12 - 20 [facility] Urea Nitrogen (BUN) 27(H) 9 - 16 mg/dL [facility] Creatinine, Serum 1.00 0.5 - 1.4 mg/dL [facility] Estimated Glomerular Filt Rate 56 [facility] Comment:Chronic Kidney Disea se: Estimated GFR < 60 mL/min/1.47l8Evhtnn Kidney Disease: Estimated GFR < 15 mL/min/1.73m2 Glucose 103 60 - 115 mg/dL [facility] Calcium 10.0 8.4 - 10.2 mg/dL [facility] 12/12/2024 9:28 AM EST 12/12/2024 9:28 AM EST us Generic External Data Provider LAB BLOOD ORDERAB LES Final Result [facility] [address] [place] [address] [phone] documented in this encounter Visit Diagnoses Not on filedocumented in this encounter Additional Health Concerns Assessment Noted Time PHQ-9 Depression Total Score: 1 05/26/20 23 10:03 AM EDT documented as of this encounter Care Teams Gamma Operator Relationship Specialty Start Date End Date Rubi Osuna MD [address] [place] [address] PCP - General Family Medicine 11/17/13 documented as of this encounter
--- OUTSIDE RECORDS SUMMARY | 2024-12-12 10:16 | XMS_ITS | Encounter Summary ---
Author Organization [employer] Address [address] [facility] [address] [place] [address] Care Team Providers Care Staff Editor Name Role Phone Rubi Osuna MD Primary Care Provider [phone] Encounter Details Date Type Department Care Team (Latest Contact Info) Description 02/06/2019 Abstract [facility] CONVERSIONS Dental, Provider, DDS Social History [...] Description 12/20/2024 2:00 PM EST Office Visit [facility] ADULT DENTAL [address] [place] [address] Devin Wilcox documented as of this encounter Visit Diagnoses Not on filedocumented in this encounter Care Teams Staff Editor Relationship Specialty Start Date End Date Rubi Osuna MD [address] [place] [id number] PCP - General Family Medicine 11/17/13 documented as of this encounter
--- OUTSIDE RECORDS SUMMARY | 2024-12-12 10:16 | XMS_ITS | Encounter Summary ---
Author Organization [employer] Address [address] [facility] 7t [place] [address] Care Team Providers Care Utility Aide Name Role Phone Rubi Osuna MD Primary Care Provider Encounter Details Date Type Department Care Team (Late st Contact Info) Description 08/28/2024 Orders Only [facility] [address], [place] [phone] Provider, MD Karina Social History Tobacco Use Types Packs/Day Years [...] AM EDT documented as of this encounter Miscellaneous Notes * Result Encounter Note - Rubi Osuna MD - 08/28/2024 11:[address]Repeat CT in 1 yr sugested documented in this encounter Plan of Treatment Upcoming Encounters Date Type Department Care Team (Late st Contact Info) Description 12/20/2024 2:00 PM EST Office Visit [facility] ADULT DENTAL [address] [place] [address] Devin Wilcox documented as of this encounter Procedures Procedure Name Priority Date/Time Associated Diagnosis Comments HM LUNG CANCER SCREENING Routine 08/28/2024 11:44 AM EST documented in this encounter Results * Hm Lung Cancer Screning (08/28/2024 11:44 AM EST) Anatomical Region Laterality Modality Other us Historical Provider HEALTH MAINTENANCE Final Result documented in this encounter Visit Diagnoses Not on filedocumented in this encounter Additional Health Concerns Assessment Noted Time PHQ-9 Depression Total Score: 1 05/26/20 23 10:03 AM EDT documented as of this encounter Care Teams Utility Aide Relationship Specialty Start Date End Date Rubi Osuna MD [address] [place] [id number] PCP - General Family Medicine 11/17/13 documented as of this encounter
--- OUTSIDE RECORDS SUMMARY | 2024-12-12 10:16 | XMS_ITS | Encounter Summary ---
Author Organization [employer] Address [address] [facility] [address] [place] [address] Care Team Providers Care Practice Performance Manager Name Role Phone Rubi Osuna MD Primary Care Provider Reason for Visit * Reason Onset Date Comments insurance inactive? 08/10/2024 Encounter Details Date Type Department Care Team (Late st Contact Info) Description 08/10/2024 Telephone [facility] [address] [place] [address] Devin Wilcox insurance inactive? Social History Tobacco Use Types Packs/Day Years [...] as of this encounter Miscellaneous Notes * Telephone Encounter - Becca Rubio - 08/10/2024 10:20 AM EDT Patient called office to scheduled cleaning appt. She was told prior to last 2 visits that her insurance was inactive but states that the insurance is active. [facility] front [facility] will contact [employer] to verify eligibility and will contact patient to update and schedule if able to do so DR documented in this encounter Plan of Treatment Upcoming Encounters Date Type Department Care Team (Late st Contact Info) Description 12/20/2024 2:00 PM EST Office Visit [facility] ADULT DENTAL [address] [place] [address] Devin Wilcox documented as of this encounter Visit Diagnoses Not on filedocumented in this encounter Additional Health Concerns Assessment Noted Time PHQ-9 Depression Total Score: 1 05/26/20 23 10:03 AM EDT documented as of this encounter Care Teams Practice Performance Manager Relationship Specialty Start Date End Date Rubi Osuna MD [address] [place] [id number] PCP - General Family Medicine 11/17/13 documented as of this encounter
--- OUTSIDE RECORDS SUMMARY | 2024-12-12 10:16 | XMS_ITS | Encounter Summary ---
Author Organization [employer] Address [address] [facility] [address] [place] [address] Care Team Providers Care Web Programmer Name Role Phone Rubi Osuna MD Primary Care Provider [phone] Reason for Visit * Reason Onset Date Comments insurance 05/02/2024 Encounter Details Date Type Department Care Team ([facility] st Contact Info) Description 05/02/2024 Telephone [facility] [address] [place] [address] Devin Wilcox insurance Social History Tobacco Use Types Packs/Day Years [...] Miscellaneous Notes * Telephone Encounter - Becca Ramiro - 05/02/2024 9:54 AM EDT Patient has an appt on 05/05. The last time she came in March she is stating that she was not seen because she was told she does not have insurance. She states that she does have the insurance and that it is active. I am unable to get into [employer] for her. She says it's a 45 minutes walk to office and back home and she wants to get it squared away before Wednesday comes. Can someone pls help her? documented in this encounter Plan of Treatment Upcoming Encounters Date Type Department Care Team (Late st Contact Info) Description 12/20/2024 2:00 PM EST Office Visit [facility] ADULT DENTAL [address] [place] [address] Devin Wilcox documented as of this encounter Visit Diagnoses Not on filedocumented in this encounter Additional Health Concerns Assessment Noted Time PHQ-9 Depression Total Score: 1 05/26/20 23 10:03 AM EDT documented as of this encounter Care Teams Web Programmer Relationship Specialty Start Date End Date Rubi Osuna MD [address] [place] [id number] PCP - General Family Medicine 11/17/13 documented as of this encounter
--- OUTSIDE RECORDS SUMMARY | 2024-12-12 10:16 | XMS_ITS | Continuity of Care Document ---
Author Organization [place] [facility], [facility] Address [address] [place] [address] Care Team Providers Care Director Visual Name Role Phone [facility] Primary Care Provider Assessment Encounter Date Assessment Date Assessment LastModified by Organization Details LastModified Time 11/29/2024 11/29/2024 Fiberoptic laryngoscopy shows very mild edema of the true vocal cords bilaterally. There is no polyp or nodular changes. Her voice quality appears improved with a slight raspy. Encouraged continued efforts at smoking cessation as this likely continues to contribute to her Renke edema. 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 Her description of vocal fatigue may be more related to pulmonary changes as she does feel some improvement when she uses inhaler. [email or web address] Not available 11/29/2024 09:31:37 Plan of Treatment Reminders Order Date Submit Date Provider Last Modified By Organization Details Last Modified Time Details Appointments Establish ed 15 2024 09:15A M ERICK TERRY MD Not available Not available Not available Lab None recorded. Referral None recorded. Procedures None recorded. Surgeries None recorded. Imaging None recorded. Medication Orders None recorded. Patient TargetsNo targets recorded. Patient InstructionsNo instructions recorded. Reason for Referral None Reported. 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 4 15:06:01 Tobacco user 605543096 Active 2017 Tobacco use; Note: Date Diagnosed : 8 9:14 AM (Z72.0) Not Available [facility] 4 03:20:41 Stomatiti s 46001465 Active 2023 Oral thrush; Note: Date Diagnosed : 01/20/2024 11:27 AM (B37.0) Not Available [facility] 4 03:20:40 Candidias is of mouth 63270137 Active 2023 Oral thrush; Note: Date Diagnosed : 01/20/2024 11:27 AM (B37.0) Not Available [facility] 4 03:20:40 Tobacco dependenc e caused by cigarette s [id number] 407880 Active 2023 ERICK TERRY MD [address] [place] [address],[place] [address], [place], [address] , [place] - [facility] 4 10:00:32 Problem Notes None recorded. Procedures Surgical History Date Name Laterality Status Provider Name and Address Organization Details Recorded Time 11/29/2024 FOL_DP completed ERICK TERRY MD [address] [place] [address],[place] [address], [place], [phone], [place] - [facility] 11/28/2024 17:01:02 05/25/2024 FOL_DP completed ERICK TERRY MD [address] [place] [address],[address], [address], [place] [facility] 05/25/2024 09:57:21 Imaging Results None recorded. Procedure Notes None recorded. Medical Equipment None Reported. Allergies No known drug allergies Medications Name Sig Start Date Stop Date Status Note LastModified by Organization Details LastModified Time vitamin b-12 500 mcg tabs 11/29 completed Not Available Not Available Not Available calcium 600+d3 600-20 mg-mcg tabs 11/29 completed Not Available Not Available Not Available b-1 100 mg tabs 11/29 completed Not Available Not Available Not Available nystatin 100,000 unit/mL oral suspensio n SWISH AND SPIT 1 TEASPOON FUL (5 ML) BY MOUTH 4 TIMES A DAY FOR 2 TO 4 WEEKS 11/29 completed Not Available Not Available Not Available prazosin 1 mg capsule active Not Available Not Available Not Available naltrexon e 50 mg tablet TAKE 1/2 TABLET BY MOUTH EVERY DAY 11/29 completed Not Available Not Available Not Available prednison e 5 mg tablet 09/22 completed Medicati on ID: [id number] D uration Value: 30 Brand Name: predniso ne Send Method: E-Prescr ibed Sub s Allowed: subs OK Medic ationGen ericName : predniso ne Not Available Not Available Not Available cyanocoba emño (vit B-12) 500 mcg tablet active Not Available Not Available Not Available methotrex ate sodium 2.5 mg tablet 09/22 completed Medicati on ID: [id number] D uration Value: 28 Brand Name: methotre xate sodium S end Method: E-Prescr ibed Sub s Allowed: subs OK Medic ationGen ericName : methotre xate sodium Not Available Not Available Not Available IBU 600 mg tablet 09/22 completed Medicati on ID: [id number] D uration Value: 10 Brand Name: IBU Send Method: E-Prescr ibed Sub s Allowed: subs OK Speci al Instruct ion: take 1 tablet by mouth three times a day with food if needed for pain Med icationG enericNa me: IBU Not Available Not Available Not Available pantopraz ole 40 mg tablet,de layed release TAKE 1 TABLET BY MOUTH EVERY DAY active Not Available Not Available No t Available sertralin e 25 mg tablet TAKE 1 TABLET BY MOUTH EVERY DAY active Not Available Not Available No t Available folic acid 1 mg tablet active Not Available Not Available Not Available bisacodyl 5 mg tablet,de layed release 11/29 completed Medicati on ID: [id number] B rand Name: bisacody l Send Method: E-Prescr ibed Sub s Allowed: subs OK Speci al Instruct ion: TAKE 2 TABLETS BY MOUTH AT NOON THE DAY BEFORE COLONOSC OPY Medi cationGe nericNam e: bisacody l Not Available Not Available Not Available polyethyl swathi glycol 3350 17 gram/dose oral powder TAKE 238 GRAMS MIXED WITH WATER AND DRINK DIRECTED BY GASTRO DEPT 11/29 completed Not Available Not Available Not Available albuterol sulfate HFA 90 mcg/actua tion aerosol inhaler INHALE 2 PUFFS BY MOUTH EVERY 6 HOURS NEEDED FOR WHEEZING active Not Available Not Available No t Available Vitamin B-1 100 mg tablet TAKE 1 TABLET BY MOUTH EACH MORNING active Not Available Not Available No t Available fluticaso ne propionat e 50 mcg/actua tion nasal spray,royce pension 09/22 completed Medicati on ID: [id number] D uration Value: 30 Brand Name: fluticas one propiona te Send Method: E-Prescr ibed Sub s Allowed: subs OK Medic ationGen ericName : fluticas one propiona te Not Available Not Available Not Available loratadin e 10 mg tablet active Medicati on ID: [id number] B rand Name: loratadi ne Send Method: E-Prescr ibed Sub s Allowed: subs OK Speci al Instruct ion: TAKE 1 TABLET BY MOUTH EVERY DAY Medi cationGe nericNam e: loratadi ne Not Available Not Available Not Available entecavir 0.5 mg tablet TAKE 1 TABLET BY MOUTH EVERY DAY active Not Available Not Available No t Available diclofena c 1 % topical gel APPLY 1-2 GM TOPICALL Y TWICE DAILY TO INVOVED HAND JOINTS WHEN NEEDED 11/29 completed Not Available Not Available Not Available calcium 600 mg (as carbonate )-vitamin D3 20 mcg (800 unit) tablet TAKE 1 TABLET BY MOUTH EVERY DAY active Not Available Not Available No t Available Trelegy Ellipta 100 mcg-62.5 mcg-25 mcg powder for inhalatio n INHALE 1 PUFF BY MOUTH AT THE SAME TIME EVERY DAY active Not Available Not Available No t Available Vitals Date Recorded Body height Body mass index (BMI) Body weight Provider Name and Address Organization Details Last Updated DateTime 11/29/2024 162.56 cm 20.8 kg/m2 58244.68 g Brandi Velvet [place] - [facility] 11/29/2024 09:19:04 Social History None recorded. Functional Status None recorded. Mental Status None recorded. Family History Nothing Reported. Medical History No medical history recorded. Gynecological HistoryNo gynecological history recorded. Obstetrics History GPAL:G 0 P 0 0 0 0 Past Encounters Encounter ID Performer Location Encounter Start Date Encounter Closed Date Diagnosis/Indication Diagnosis SNOMED-CT Code Diagnosis ICD10 Code Diagnosis Note [id number] ERICK TERRY MD [facility] [address] [address] 11/29/2024 09:09:07 11/29/2024 09:31:15 Polyp of vocal cord or larynx 229366179 J38.1 Tobacco de pendence caused by cigarettes [id number] 2380189 F17.210 Health Concerns Section Related Observation LastModified by Organization Detai ls LastModified Time None Recorded Concern Status LastModified by Organization Details LastModified Time None Recorded Payers Encounter Date Sequence Insurance Name Policy Number Policy Nguyen Covered Member ID Nguyen Member ID Guarantor Name 11/29/2024 1 [employer] [facility] [id number] Oc Saucedo [id number] Seng Saucedo Notes Date Note Type Note Provider Name and Address Organization Details Recorded Time 11/29/2024 text/html Bilateral renke edema11/08/23 right vocal cord stripping - path benign vocal polyp01/10/24 left vocal cord strippingpath - focal spongiosis, 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 has been singing less with her band.feels a tickle in throat can trigger a cough that is non productivevoice gets fatigued with 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 smoking cessation recommended ERICK TERRY MD [address] [place] [address], [place], [address], [place] - [facility] 11/29/2024 09:31:54 OBGyn Episode No OBEpisode recorded.
--- OUTSIDE RECORDS SUMMARY | 2024-12-12 10:17 | XMS_ITS | Encounter Summary ---
Author Organization [employer] Address [address] [facility] [address]t [place] [address] Care Team Providers Care Concrete Mason Name Role Phone Rubi Osuna MD Primary Care Provider [phone] Reason for Visit * Reason Comments Med Refill Encounter Details Date Type Department Care Team (Late st Contact Info) Description 02/04/2023 Refill [facility] [address] [place] [address] Riana Zimmer MD [address] [place] [address] Social History Tobacco Use Types Packs/Day Years [...] 2:00 PM EST Office Visit [facility] ADULT DENTAL [address] [place] [address] Devin Wilcox documented as of this encounter Visit Diagnoses Not on filedocumented in this encounter Care Teams Concrete Mason Relationship Specialty Start Date End Date Rubi Osuna MD [address] [place] [id number] PCP - General Family Medicine 11/17/13 documented as of this encounter
--- OUTSIDE RECORDS SUMMARY | 2024-12-12 10:17 | XMS_ITS | Data Portability ---
Author Organization [place] - [facility], Allergy Address [address] [address] Care Team Providers Care Slate Worker Name Role Phone [facility] Primary Care Provider Assessment Encounter Date Assessment Date Assessment LastModified by Organization Details LastModified Time 05/25/2024 05/25/2024 Fiberoptic laryngoscopy shows very mild edema of [...] to continue surveillance with reevaluation in 6 months [email or web address] Not available 05/25/2024 10:00:28 11/29/2024 11/29/2024 Fiberoptic laryngoscopy shows very mild [...] Details Appointments Establish ed 15 2024 09:15A Moi TERRY MD Not available Not available Not available Lab None recorded. Referral None recorded. Procedures None recorded. Surgeries None recorded. Imaging None recorded. Medication Orders None recorded. Patient TargetsNo targets recorded. Patient InstructionsNo instructions recorded. Reason for Referral None Reported. Results Created Date Observation Date Name Description Value Unit Range Abnormal Flag Note LastModifiedBy Organization Detail LastModifiedTime 06/07/20 24 11/09/2023 imagi ng/di agnos tic resul t No observ ation record ed. [email or web address] Not Available 01:18:25 06/07/20 24 11/10/2023 imagi ng/di agnos tic resul t No observ ation record ed. [email or web address] Not Available 01:18:33 06/07/20 24 12/07/2023 imagi ng/di agnos tic resul t No observ ation record ed. [email or web address] Not Available 01:18:36 06/07/20 24 01/12/2024 imagi ng/di agnos tic resul t No observ ation record ed. [email or web address] Not Available 01:18:53 Result Notes None recorded. Problems Name Problem SNOMED Code Status Onset Date Resolution Date Notes Provider Name and Address Organization Details Recorded Time Allergic rhinitis 19739744 Active 2017 Other allergic rhinitis; Note: Date Diagnosed : 8 9:31 AM (J30.89) Not Available [facility] 4 03:20:41 Dysphonia 16155078 Active 2017 Hoarsenes s; Note: Date Diagnosed : 8 9:13 AM (R49.0) Not Available [facility] 4 03:20:40 Polyp of vocal cord or larynx 485203097 Active 2022 Polyp of vocal cord and larynx; Note: Date Diagnosed : 09/22/2023 4:26 PM (J38.1) ERICK TERRY MD [address] [place] [address], [place], [address] , [place] [facility] 4 15:06:01 Tobacco user 639422399 Active 2017 Tobacco use; Note: Date Diagnosed : 8 9:14 AM (Z72.0) Not Available [facility] 4 03:20:41 Stomatiti s 57673500 Active 2023 Oral thrush; Note: Date Diagnosed : 01/20/2024 11:27 AM (B37.0) Not Available [facility] 03:20:40 Candidias is of mouth 90764167 Active 2023 Oral thrush; Note: Date Diagnosed : 01/20/2024 11:27 AM (B37.0) Not Available [facility] 03:20:40 Tobacco dependenc e caused by cigarette s 49932977480 362130 Active 2023 ERICK TERRY MD [address] [facility],[place] [address], [place], [address] , [place] [facility] 10:00:32 Problem Notes None recorded. Procedures Surgical History Date Name Laterality Status Provider Name and Address Organization Details Recorded Time 11/29/2024 FOL_DP completed ERICK TERRY MD [address] [place] [address],[place] [address], [place], [address], [facility] - [facility] 11/28/2024 17:01:02 05/25/2024 FOL_DP completed ERICK TERRY MD [address] [facility],[place] [address], [place], [address], [place] - [facility] 05/25/2024 09:57:21 Imaging Results Imaging Date Name Status LastModified by Organiz ation Details LastModified Time 11/09/2023 imaging/diag nostic result completed Information not available 06/07/2024 01:18:25 11/10/2023 imaging/diag nostic result completed Information not available 06/07/2024 01:18:33 12/07/2023 imaging/diag nostic result completed Information not available 06/07/2024 01:18:36 01/12/2024 imaging/diag nostic result completed Information not available 06/07/2024 01:18:53 Procedure Notes None recorded. Medical Equipment None Reported. Allergies No known drug allergies Medications Name Sig Start Date Stop Date Status Note LastModified by Organization Details LastModified Time calcium 600+d3 600-20 mg-mcg tabs 11/29 completed Not Available Not Available Not Available vitamin b-12 500 mcg tabs 11/29 completed [...] mg tablet 09/22 completed Medicati on ID: [id number] D uration Value: 30 Brand Name: predniso ne Send Method: E-Prescr ibed Sub s Allowed: subs OK Medic ationGen ericName : predniso ne Not Available Not Available Not Available cyanocoba meño (vit B-12) 500 mcg tablet active Not Available Not Available Not Available methotrex ate sodium 2.5 mg tablet 09/22 completed Medicati on ID: [id number] D uration Value: 28 Brand Name: methotre xate sodium S end Method: E-Prescr ibed Sub s Allowed: subs OK Medic ationGen ericName : methotre xate sodium Not Available Not Available Not Available IBU 600 mg tablet 09/22 completed Medicati on ID: [id number] D uration Value: 10 Brand Name: IBU [...] layed release 11/29 completed Medicati on ID: [id number] B rand Name: bisacody l Send Method: [...] spray,royce pension 09/22 completed Medicati on ID: [id number] D uration Value: 30 Brand Name: fluticas one propiona te Send Method: E-Prescr ibed Sub s Allowed: subs OK Medic ationGen ericName : fluticas one propiona te Not Available Not Available Not Available loratadin e 10 mg tablet active Medicati on ID: [id number] B rand Name: loratadi ne Send Method: E-Prescr ibed Sub s Allowed: subs OK Ryani al Instruct ion: TAKE 1 TABLET BY [...] and Address Organization Details Last Updated DateTime 05/25/2024 162.56 cm 20.1 kg/m2 23812.31 g Aurora Avila [place] - [facility] 05/25/2024 09:50:28 Date Recorded Body height Body mass index (BMI) Body weight Provider Name and Address Organization Details Last Updated DateTime 11/29/2024 162.56 cm 20.8 kg/m2 10661.68 g Brandi Severinokati [place] - [facility] 11/29/2024 09:19:04 Social History None recorded. Functional Status None recorded. Mental Status None recorded. Family History Nothing Reported. Medical History No medical history recorded. Gynecological HistoryNo gynecological history recorded. Obstetrics History GPAL:G 0 P 0 0 0 0 Past Encounters Encounter ID Performer Location Encounter Start Date Encounter Closed Date Diagnosis/Indication Diagnosis SNOMED-CT Code Diagnosis ICD10 Code Diagnosis Note [id number] ERICK TERRY MD [facility] [address] [address] 05/25/2024 09:41:35 05/25/2024 10:00:21 Polyp of vocal cord or larynx 075170870 J38.1 Tobacco de pendence caused by cigarettes 0365283639 4832871 F17.210 [id number] ERICK TERRY MD [facility] [address] [address] 11/29/2024 09:09:07 11/29/2024 09:31:15 Polyp of vocal cord or larynx 721394756 J38.1 Tobacco de pendence caused by cigarettes 2241063787 3174153 F17.210 Health Concerns Section Related Observation LastModified by Organization Detai ls LastModified Time None Recorded Concern Status LastModified by Organization Details LastModified Time None Recorded Advance Directives Directive None Recorded Payers Encounter Date Sequence Insurance Name Policy Number Policy Nguyen Covered Member ID Nguyen Member ID Guarantor Name 05/25/2024 1 [employer] [facility] [id number] Oc Saucedo [id number] Seng Saucedo 11/29/2024 1 [employer] [facility] [employer] [id number] Oc Saucedo [id number] Seng Saucedo Notes Date Note Type Note Provider Name and Address Organization Details Recorded Time 05/25/2024 text/html Bilateral renke edema11/08/23 right vocal cord stripping - path benign vocal polyp01/10/24 left vocal cord strippingpath - focal spongiosis, 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 has been singing with her band again.feels a tickle in throat can trigger a cough that is non productive 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 smoking cessation recommended ERICK TERRY MD [address] [facility],[place] [address], [place], [address], [place] [facility] 11/29/2024 09:31:54 OBGyn Episode No OBEpisode recorded.
--- OUTSIDE RECORDS SUMMARY | 2024-12-12 10:17 | XMS_ITS | Clinical Summary ---
Author Organization [email or web address] Address [address] [place] [address] Care Team Providers Care Verification Rep Name Role Phone Rubi Osuna MD Primary Care Provider [phone] Allergies No known active allergies Medications Fluticasone Propionate, Inhal, 100 MCG/ACT aerosol powder 2 times daily. Active albuterol (5 MG/ML) 0.5% nebulizer solution as directed Active Calcium 600+D3 600-20 MG-MCG tablet Take 1 tablet by mouth in the morning. 04/23/2023 Active Prolia 60 MG/ML solution prefilled syringe 03/26/2023 Active entecavir (Baraclude) 0.5 MG tablet daily. Active Fluticasone-Ume clidin-Vilant (Trelegy Ellipta) 100-62.5-25 MCG/ACT aerosol powder daily. 04/15/2022 Active Trelegy Ellipta 100-62.5-25 MCG/ACT aerosol powder INHALE 1 PUFF BY MOUTH AT THE SAME TIME EVERY DAY 03/13/2023 Active ibuprofen 800 MG tablet 3 times a day. 12/01/2021 Active loratadine (Claritin) 10 MG tablet daily. Active omeprazole (PriLOSEC) [address] capsule daily. 05/25/2022 Activ e pantoprazole (ProtoNix) 40 MG EC tablet Take 40 mg by mouth in the morning. 04/26/2023 Active folic acid (Folvite) 1 MG tablet TAKE 1 TABLET(1000 MCG) BY MOUTH IN THE MORNING 90 tablet 1 09/07/2023 Active thiamine (,Vitamin B-1,) 100 MG tabletIndicatio ns:Vitamin deficiency TAKE 1 TABLET BY MOUTH EACH MORNING 90 tablet 3 02/29/2024 Active cyanocobalamin (Vitamin B-12) 500 MCG tabletIndicatio ns:Vitamin deficiency TAKE 1 TABLET(500 MCG) BY MOUTH IN THE MORNING 90 tablet 3 02/29/2024 Active prazosin (Minipress) 1 MG capsule TAKE 1 CAPSULE(1 MG) BY MOUTH AT BEDTIME 30 capsule 11 08/24/2024 Active sertraline (Zoloft) 25 MG tablet TAKE 1 TABLET BY MOUTH EVERY DAY 30 tablet 1 08/24/2024 Active Fluticasone-Ume clidin-Vilant (Trelegy Ellipta) 100-62.5-25 MCG/ACT aerosol powder INHALE 1 PUFF BY MOUTH AT THE SAME TIME EVERY DAY 60 each 3 08/24/2024 Active albuterol 108 (90 Base) MCG/ACT inhaler Inhale 2 puffs every 6 (six) hours if needed for wheezing. 18 g 11/07/2024 Active Active Problems Problem Noted Date Diagnosed Date Colonoscopy refused 05/18/2023 Dysphagia 05/18/2023 Gastroesophageal reflux disease without esophagi tis 05/18/2023 Chronic obstructive lung disease 10/16/2021 Hoarse 10/16/2021 Rheumatoid arthritis 10/16/2021 Alcohol abuse 07/30/2014 Tobacco dependence syndrome 07/30/2014 Encounters Date Type Department Care Team Description 12/12/2024 Orders Only GENERIC EXTERNAL DATA DEPARTMENT Provider, Generic External Data 12/11/2024 Refill [facility] [address] [place] [address] Rubi Osuna MD 11/07/2024 Refill [facility] [address] [place] [address] Rubi Osuna MD 11/06/2024 Refill [facility] [address] [place], [place] [phone] Khushi Epperson MD 10/22/2024 Orders Only [facility] External Provider, [facility] 10/13/2024 Refill [facility] [address] [place], [place] [phone] Rubi Osuna MD from Last 3 Months Immunizations Name Administration Dates Next Due Influenza, IIV3, injectable 09/09/2021, 4,08/14/2010 Influenza, Split (incl. isabelle fied surface antigen) 08/04/2013 Social History Tobacco Use Types Packs/Day Years Used Date Smoking Tobacco: Former Cigarettes Tobacco Cessation:Counseling Given: Not Answered Alcohol Use Standard Drinks/Week Comments Not Currently [...] Orientation Straight 08/17/2022 10 :15 AM EDT Last Filed Vital Signs Vital Sign Reading Time Taken Comments Blood Pressure 126/62 04/10/2024 9:51 AM EDT Pulse 65 04/10/2024 9:51 AM EDT Temperature 36.9 ??C (98.5 ??F) 05/26/2023 10:02 AM E DT Respiratory Rate 18 05/26/2023 10:02 AM EDT Oxygen Saturation 99% 05/26/2023 10:02 AM EDT Inhaled Oxygen Concentration - - Weight 52.6 kg (116 lb) 05/26/2023 10:02 AM EDT Height 165.1 cm (5' 5 ) 05/26/2023 10:02 AM EDT Body Mass Index 19.3 05/26/2023 10:02 AM EDT Plan of Treatment Upcoming Encounters Date Type Department Care Team (Late st Contact Info) Description 12/20/2024 2:00 PM EST Office Visit [facility] [address] [place] [address] Devin Wilcox Health Maintenance Due Date Last Done Comments CT Colonography 1959 Colonoscopy 1959 Colorectal Cancer Screening 1959 FIT DNA/Cologuard 1959 FIT 1959 FOBT 1960 Sigmoidoscopy 1959 Alcohol/Substance Use Screening 1971 DTaP/Tdap/Td Vaccines (1 - Tdap) 1978 Hepatitis A Vaccines (1 of 2 - Risk 2-dose series) 1978 Pneumococcal Vaccine: 50+ Years (1 of 2 - PCV) 1978 Pap Smear 1980 Cervical Cancer Screening 1989 HPV/Cotest 1989 Zoster Vaccines (1 of 2) 2009 Hepatitis B Vaccines (1 of 3 - Risk 3-dose series) 2019 RSV Patients and Patients Aged 60 years or older (1 - Risk 60-74 years 1-dose series) 2019 Dental X-Ray: Full Mouth 07/14/2021 07/13/2018 Dental Oral Exam 07/18/2021 01/15/2021, , 07/02/2015, Additional history exists Dental Prophylaxis 07/18/2021 01/15/2021, 0 01/02/2016, 07/02/2015, Additional history exists Dental X-Ray: Bitewings 01/16/2022 01/16/20 21, 07/13/2018, 10/23/2014, Additional history exists Depression Screening 05/26/2024 05/26/2023, 05/26/20 23 SDOH Screening 05/26/2024 05/26/2023 COVID-19 Vaccine ( season) 2024 07/10/2023, 01/31/2021, 01/03/2021 Influenza Vaccine (#1) 2024 , 07/30/2014, 08/04/2013, Additional history exists Tobacco Screening 04/10/2025 04/10/2024 Mammogram 07/08/2025 07/08/2024, 06/18, 07/06/2023 Hepatitis C Screening Completed 06/06/2024, 023 HIB Vaccines Aged Out No longer eligi ble based on patient's age to complete this topic HPV Vaccines Aged Out No longer eligi ble based on patient's age to complete this topic IPV Vaccines Aged Out No longer eligi ble based on patient's age to complete this topic Meningococcal Vaccine Aged Out No baldomero luis eligible based on patient's age to complete this topic RSV under 20 months Aged Out No longe r eligible based on patient's age to complete this topic Rotavirus Vaccines Aged Out No longer eligible based on patient's age to complete this topic Procedures Procedure Name Priority Date/Time Associated Diagnosis Comments BASIC METABOLIC PANEL Routine 12/12/2024 9:28 AM EST XR FOOT 1-2 VIEWS LEFT Routine 3:08 PM EST BI MAMMOGRAM SCREENING TOMOSYNTHESIS BILATERAL Routine 07/08/2024 8:00 AM EDT HEPATITIS C ANTIBODY Routine 06/06/2024 11:58 AM EDT PROPHYLAXIS - ADULT Routine 01/15/2021 1 2:00 AM EDT BITEWINGS - 4 RADIOGRAPHIC IMAGES Routine 01/15/2021 12:00 AM EDT PERIODIC ORAL EVALUATION - ESTABLISHED PATIENT Routine 01/15/2021 12:00 AM EDT INTRAORAL - COMPLETE SERIES OF RADIOGRAPHIC IMAGES Routine 07/13/2018 12:00 AM EDT from Last 3 Months or Most Recently Relevant to Health Maintenance Results * (ABNORMAL) Basic Metabolic Panel (12/12/2024 9:28 AM EST) Sodium 141 135 - 145 mmol/L [facility] Potassium 4.2 3.3 - 5.1 mmol/L [facility] Chloride 103 96 - 108 mmol/L [facility] Carbon Dioxide 28 22 - 29 mmol/L [facility] Anion Gap 14 12 - 20 [facility] Urea Nitrogen (BUN) 27(H) 9 - 16 mg/dL [facility] Creatinine, Serum 1.00 0.5 - 1.4 mg/dL [facility] Estimated Glomerular Filt Rate 56 [facility] Comment:Chronic Kidney Disea se: Estimated GFR < 60 mL/min/1.25x6Mbthjs Kidney Disease: Estimated GFR < 15 mL/min/1.73m2 Glucose 103 60 - 115 mg/dL [facility] Calcium 10.0 8.4 - 10.2 mg/dL [facility] 12/12/2024 9:28 AM EST 12/12/2024 9:28 AM EST us Generic External Data Provider LAB BLOOD ORDERAB LES Final Result [facility] [address] [place] [address] [phone] * XR Foot 1-2 Views Left (10/22/2024 3:08 PM EST) Anatomical Region Laterality Modality Lower Extremities, Foot Left Radiogra phic Imaging 10/22/2024 3:08 PM EST Narrative 10/22/2024 3:10 PM EST ? [facility] ?[address] ?[place] [address] ?XRay Report ? Signed ? Patient: Czausz,Cheryllann ?MR#: [id number] ?? [id number] ? : 1960 ?Acct:[id number] ? Age/Sex: 64 / F ?ADM Date: 01/05/25 ? Loc: HO.ED ? Attending Dr: ? Ordering Physician: Clinton Hunt ?? Date of Service: 10/22/24 ?? Procedure(s): XR foot LT 2V ?? Accession Number(s): [id number] ? cc: Clinton Hunt; Rubi Osuna MD ? CLINICAL HISTORY: left middle toe pain ? 3 view left foot ? Comparison: None ? Findings: ?? Bones intact. No dislocations. ?? No significant arthritic change or erosions. ?? No ankle effusion. ?? No radiopaque foreign body. ? IMPRESSION: ?? 1. No acute findings. ? This document has been electronically signed by: John Evans MD on ?? 10/22/2024 15:08:41 ? Dictated By: ?John Evans MD ? Signed By: ?<Electronically signed by John Evans MD in OV> ? 10/22/24 1509 ? DD/ 1508 ? TD/TT: 10/22/24 1508 ? Foster Winder: ? Procedure Note Donotuseinterpreter, Image - 10/22/2024 [place] [address] XRay Report Signed Patient: Seng LynneMR#: [id number] : 9Acct:[id number] Age/Sex: 64 / FADM Date: 10/22/24 Loc: HO.ED Attending Dr: Ordering Physician: Clinton Hunt Date of Service: 10/22/24 Procedure(s): XR foot LT 2V Accession Number(s): [id number] cc: Clinton Hunt; Rubi Osuna MD CLINICAL HISTORY: left middle toe pain 3 view left foot Comparison: None Findings: Bones intact. No dislocations. No significant arthritic change or erosions. No ankle effusion. No radiopaque foreign body. IMPRESSION: 1. No acute findings. This document has been electronically signed by: John Evans MD on 10/22/2024 15:08:41 Dictated By: John Evans MD Signed By: <Electronically signed by John Evans MD in OV> 10/22/24 1509 DD/ 1508 TD/TT: 10/22/24 1508 Foster Winder: [facility] External Provider IMG XR PROCEDURES Edited Result - Final * BI Mammogram Screening Tomosynthesis Bilateral (07/08/2024 8:00 AM EDT) Anatomical Region Laterality Modality Breast Bilateral Mammography 07/08/2024 8:00 AM EDT Narrative 07/20/2024 8:57 AM EDT ? [facility] ? [address] [place] [address] ? Mammography Report ? Signed ? Patient: Czausz,Cheryllann ?MR#: [id number] ?? [id number] ? : 1960 ?Acct:[id number] ? Age/Sex: 63 / F ?ADM Date: 07/08/24 ? Loc: HO.MAMMO ? Attending Dr: Rubi Osuna MD ? Ordering Physician: Rubi Osuna MD ?Results: 1Negati ?? ve ? Date of Service: 07/08/24 ?Follow Up: 1 Year From Orig ?? inal Mammogram ? Procedure(s): MM tomosynthesis screening BI ?? Accession Number(s): [id number] ? cc: Rubi Osuna MD ? EXAMINATION: ?? MM SCREENING DIGITAL BREAST TOMOSYNTHESIS, BILATERAL ? CLINICAL INFORMATION: ? Screening. Asymptomatic. ? COMPARISON: ?? Mammography: Comparison is made with available priors ? TECHNIQUE: ?? Digital breast mammography with tomosynthesis is performed in both the ?? craniocaudal and mediolateral oblique views along with computer-aided ?? detection (CAD). ? FINDINGS: ?? The breasts are extremely dense, which lowers the sensitivity of ?? mammography (ACR BI-RADS breast composition Category d). ? There are no significant masses, abnormal calcifications, or other ?? abnormalities. ? MM/MM tomosynthesis screening BI ?? IMPRESSION: ?? No mammographic evidence of malignancy. ? ASSESSMENT: ? BI-RADS BI-RADS 1 - Negative ? RECOMMENDATION: ?? Routine annual mammography screening. ? 1 year F/U ? This examination should not preclude the clinical evaluation of a ?? suspicious palpable abnormality. ? This patient's information was entered into a reminder system with a ?? target due date for their next mammogram. ? Electronically signed by: ??Lilia Caceres DO ??07/20/2024 08:55 AM EDT ? Dictated By: ?Lilia Caceres DO ? Signed By: ?<Electronically signed by Lilia Caceres, DO in OV> ? 07/20/24 0855 ? DD/ 0800 ? TD/TT: 07/08/24 0815 ? Foster Winder: ? Procedure Note Shai, Brad - 07/20/[address] [facility] [address] [place] [address] Mammography Report Signed Patient: Seng LynneMR#: [id number] : 9Acct:[id number] Age/Sex: 63 / FADM Date: 07/08/24 Loc: HO.MAMMO Attending Dr: Rubi Osuna MD Ordering Physician: Rubi Osuna MDResults: 1Negati ve Date of Service: 07/08/24Follow Up: 1 Year From Orig ina Mammogram Procedure(s): MM tomosynthesis screening BI Accession Number(s): [id number] cc: Rubi Osuna MD EXAMINATION: MM SCREENING DIGITAL BREAST TOMOSYNTHESIS, BILATERAL CLINICAL INFORMATION: Screening. Asymptomatic. COMPARISON: Mammography: Comparison is made with available priors TECHNIQUE: Digital breast mammography with tomosynthesis is performed in both the craniocaudal and mediolateral oblique views along with computer-aided detection (CAD). FINDINGS: The breasts are extremely dense, which lowers the sensitivity of mammography (ACR BI-RADS breast composition Category d). There are no significant masses, abnormal calcifications, or other abnormalities. MM/MM tomosynthesis screening BI IMPRESSION: No mammographic evidence of malignancy. ASSESSMENT: BI-RADS BI-RADS 1 - Negative RECOMMENDATION: Routine annual mammography screening. 1 year F/U This examination should not preclude the clinical evaluation of a suspicious palpable abnormality. This patient's information was entered into a reminder system with a target due date for their next mammogram. Electronically signed by: Lilia Caceres DO 07/20/2024 08:55 AM EDT RP Dictated By: Lilia Caceres DO Signed By: <Electronically signed by Lilia Caceres DO in OV> 07/20/24 08 DD/ 08 TD/TT: 07/08/24 0815 Foster Winder: us Rubi Osuna MD IMG BI PROCEDURES Edited Result - Final * Hepatitis C Ab (06/06/2024 11:58 AM EDT) Hepatitis C Antibody Nonreactive Nonreactive [facility] Comment:Antibodies to HCV no t detected; does not exclude early acuteHCV infection. 06/06/2024 11:5 8 AM EDT 06/06/2024 12:03 PM EDT us Generic External Data Provider LAB BLOOD ORDERAB LES Final Result [facility] [address] [place] [phone] from Last 3 Months or Most Recently Relevant to Health Maintenance Insurance [employer] Care Teams Verification Rep Relationship Specialty Start Date End Date Rubi Osuna MD [address] [place] [id number] PCP - General Family Medicine 11/17/13
--- OUTSIDE RECORDS SUMMARY | 2024-12-12 10:17 | XMS_ITS | Encounter Summary ---
Author Organization [employer] Address [address] [facility] 7t [place] [address] Care Team Providers Care Clean Room Assembler Name Role Phone Rubi Osuna MD Primary Care Provider [phone] Reason for Visit * Reason Comments Med Refill Encounter Details Date Type Department Care Team (Late st Contact Info) Description 01/28/2023 Refill [facility] [address] [place] [address] Riana Zimmer MD [address] [place] [address] Social History Tobacco Use Types Packs/Day Years Used Date Smoking Tobacco: Never Assessed Comments Unknown Sex and Gender Information Value Date Recorded Sex Assigned at Female 08/17/2022 10:15 AM EDT Legal Sex Female 10:15 AM EDT Gender Identity Female 08/17/2022 10:15 AM EDT Sexual Orientation Straight 08/17/2022 10 :15 AM EDT documented as of this encounter Miscellaneous Notes * Telephone Encounter - Riana Zimmer MD - 02/04/2023 9:55 AM EDT Pharmacy should send to [facility] practice Not seen here Please call [phone] documented in this encounter Plan of Treatment Upcoming Encounters Date Type Department Care Team (Late st Contact Info) Description 12/20/2024 2:00 PM EST Office Visit [facility] ADULT DENTAL [address] [place] [address] Devin Wilcox documented as of this encounter Visit Diagnoses Not on filedocumented in this encounter Care Teams Clean Room Assembler Relationship Specialty Start Date End Date Rubi Osuna MD [address] [place] [address] PCP - General Family Medicine 11/17/13 documented as of this encounter
[2024-12-16 01:54] LABS: Vitamin D 25-OH, D2 <4 ng/mL; Vitamin D 25-OH, D3 33 ng/mL; Vitamin D 25-OH, Total 33 ng/mL (30-100)
== END 2024-12-12 09:20 | disposition home or self-care (01) ==
LOC: HO.LAB 09:19
PROVIDERS: PCP Student in an Organized Health Care Education/Training Program; Visit Provider Student in an Organized Health Care Education/Training Program
DX: E55.9 Vitamin D deficiency, unspecified (principal); M81.0 Age-related osteoporosis without current pathological fracture
CPT/HCPCS: 36415; 80048; 82306

== ENCOUNTER 2024-12-14 08:59 | Outpatient (AMB) | payer OTHER, SELFPAY ==
--- NOTE | 2024-12-14 09:06 | A.OFFVIS_ITS ---
Vital Signs 12/14/24 09:11 Height 5 ft 4 in Weight 119 lb 0.794 oz BMI 20.4 BP 120/70 Blood Pressure Location Lt brachial Position Sitting Pulse 57 Pulse Source Pulse Oximeter Pulse Oximetry (%) 97 Oxygen Delivery Method Room Air Intake Visit Reasons: osteoporosis/prolia inj Allergies No Known Allergies Allergy (Verified 12/14/24 09:09) Medication List - Last Reconciled 12/14/24 by Lidia Carbajal MD albuterol sulfate 90 mcg/actuation 2 puffs inhalation DAILY calcium carbonate-vitamin D3 600 mg-20 mcg (800 unit) 1 tab PO DAILY cyanocobalamin (vitamin B-12) 500 mcg PO DAILY denosumab (Prolia) 60 mg subcut [id number] diclofenac sodium 1% 1 - 2 grams topical BID entecavir 0.5 mg PO DAILY 30 days loratadine 10 mg PO DAILY naltrexone 25 mg PO DAILY pantoprazole 40 mg PO DAILY sertraline 25 mg PO DAILY thiamine HCl (vitamin B1) (Vitamin B-1) 100 mg PO DAILY HPI Comments Details: Patient is a 64-year-old female with history of hepatitis-B infection, history of alcohol dependence sober since 03/2023, polyarticular osteoarthritis and osteoporosis here today for follow up Interval History: Patient last seen 08/16/[address] Agustin. At that time she reported feeling relatively well Today, Has been having some EtOH due to stressors at home with her of 20 years. No recent falls or fractures here today for prolia injection Rheumatologic History: Previously thought to have rheumatoid arthritis in the setting of joint pain and positive rheumatoid factor. However she was found to have chronic hepatitis-B which was likely the source of the positive rheumatoid factor. She was treated for rheumatoid arthritis but did not have any improvement. Over time it appeared that her joint pain was due to osteoarthritis and not rheumatoid arthritis and she was stopped of all RA medications. Diagnosed with osteoporosis around 2018. Initially on alendronate but then was switched to Prolia Current Rheumatology Medication(s): Prolia 60mg SC every 6 months [facility] Medical History (Updated 12/14/24 @ 09:42 by Lidia Carbajal MD) Rheumatoid factor positive Environmental allergies Hepatitis B Osteoporosis Alcoholic cirrhosis of liver without ascites Surgical History History of throat surgery History of esophagogastroduodenoscopy (EGD) Social History Alcohol intake: current Alcohol intake frequency: former alcohol drinker Alcohol type: beer Patient Tobacco Use Status: Current everyday Tobacco user Tobacco use type: Cigarette Cigarettes Per Day: 6 Years Smoked: 50 Current occupational status: employed 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 Review of Systems Const Details: Review of Systems Constitutional: Denies fever, chills, weight loss ENT: Denies vision changes, eye pain or eye redness, dental caries, dry mouth GI: Denies nausea, vomiting, diarrhea, abdominal pain, change in BM Pulm: Denies SOB, MENDEZ, hemoptysis, wheezing Cards: Denies chest pain, palpitations Skin: Denies Raynaud's, rash, nail changes, photosensitivity, FISHERIES INSPECTOR: Denies headaches, weakness, paresthesias, recurrent falls MSK: as per HPI All other systems reviewed and are unremarkable except noted above Physical Exam Vital signs reviewed Physical Examination CONSTITUITIONAL Patient alert and cooperative. Well appearing and in no apparent painful distress HEENT Conjunctiva and sclera clear. ?Pupils equal round and reactive to light. ?No lymphadenopathy. ? CHEST/RESPIRATORY SYSTEM Normal respiratory effort and able to speak in complete sentences. ?Clear to auscultation bilaterally. ?No crackles, rales, rhonchi, wheezes heard. CARDIAC SYSTEM Regular rate and rhythm. ?S1 and S2 heard no murmurs. ?Radial pulses intact bilaterally MSK Hands: ?Good air launch weapons technician strength bilaterally. No deformities noted. ?No synovitis noted to the MCPs, PIPs or DIPs. ?No tenderness to palpation of these joints. Heberden's nodes noted. Wrists: ?Full range of motion at the wrists without pain. ?No tenderness to palpation or synovitis noted to the wrists. Elbows: Full range of motion without pain. No tenderness, weakness, swelling, increased warmth or erythema. Shoulders: Full range of motion without pain. No tenderness, weakness, swelling, increased warmth or erythema. Hips: Full range of motion without pain. Hip bursa: No tenderness to palpation Knees: ?Full range of motion. ?No tenderness, swelling, increased warmth or erythema.?Bilateral crepitations felt Ankles: Full range of motion. ?No tenderness, swelling, increased warmth or erythema.? Feet: ?Negative squeeze test. ?No tenderness to palpation or swelling of the MTPs. Tender points:?No tenderness to palpation of the bilateral trapezius, supraspinatus, greater trochanters, anterior costochondral junctions, bilateral gluteal areas, bilateral suboccipital muscle insertions SKIN Skin intact without rashes. Office Meds Prolia 60 mg/mL subcutaneous syringe Performing Provider: Lidia Carbajal MD Performing Location: [facility] Administered by: Lidia Carbajal MD on 12/14/24 09:38 Dose Route Admin Location Dispensed Lot Number Expiration Date NDC Human Resources Training Manager 60 mg subcut left deltoid 1 mL [id number] 05/17/27 41762-365-04 [employer] Results Reviewed Results Reviewed: Laboratory Tests 09/30/23 12/12/24 10:38 09:28 Sodium 141 Potassium 4.2 Chloride 103 Carbon Dioxide 28 BUN 27 H Creatinine 1.00 25-OH Vitamin D Total 39.7 Pending Assessment & Plan Assessment & Plan (1) Osteoporosis: Comment: Prolia -December 2020 - present Code(s): M81.0 - Age-related osteoporosis without current pathological fracture Category: Medical Qualifiers: Osteoporosis type: age-related Presence of current pathological fracture: without current pathological fracture Qualified Code(s): M81.0 - Age- related osteoporosis without current pathological fracture Plan: #Osteoporosis Patient is a 64-year-old with osteoporosis without pathological fracture. Here today for her Prolia dose Plan - Prolia 60mg SC administered today - DEXA Scan due today - RTC 6 months - Labs prior to visit: CBC, CMP, Vitamin D (2) Osteoarthritis of hands, bilateral: Code(s): M19.041 - Primary osteoarthritis, right hand; M19.042 - Primary osteoarthritis, left hand Category: Medical Qualifiers: Osteoarthritis type: primary Qualified Code(s): M19.041 - Primary osteoarthritis, right hand; M19.042 - Primary osteoarthritis, left hand Plan: #Bilateral hand OA Patient with bilateral hand OA. Recommending topical diclofenac to use up to 4 times a day Plan - Topical Diclofenac 1% 4 times a day (3) Encounter for monitoring denosumab therapy: Code(s): Z51.81 - Encounter for therapeutic drug level monitoring; Z79.620 - retirement (current) use of immunosuppressive biologic Category: Medical Plan: #Long-term use of Denosumab Discussed with patient the risks and benefits of denosumab (Prolia) for the management of their osteoporosis Benefits include improved bone density, decreased fracture risk Risks include rapid bone loss if denosumab stopped, osteonecrosis of the jaw especially in patients with poor oral hygiene/diabetes/use of glucocorticoids/age greater than 65 years, atypical femoral fractures, injection site reactions. Mild increased risk of infections due to RANKL on T helper cells, increased risk of hypocalcemia especially in CKD patients Keep vitamin-D at least 35 ng/mL Advised to delay non emergent dental procedures to toward the end of the 6 month cycle and if they plan to stop denosumab would need to continue antiresorptive to maintain the effects of denosumabe Plan I spent 30 minutes reviewing the record and labs, taking a history, examining th e patient, discussing the treatment plan and documenting in the medical record Orders: Orders AMB Denosumab Injection Practice Supplied Today M81.0 - Age-related osteoporosis without current pathological fracture Comprehensive Met. Panel 6 Months E55.9 - Vitamin D deficiency, unspecified, M81.0 - Age-related osteoporosis without current pathological fracture Vitamin D 25-OH Total 6 Months E55.9 - Vitamin D deficiency, unspecified, M81.0 - Age-related osteoporosis without current pathological fracture Complete Blood Count Auto Diff 6 Months E55.9 - Vitamin D deficiency, unspecified, M81.0 - Age-related osteoporosis without current pathological fracture Medications: Changed From diclofenac sodium 1% apply to involved hand joints when needed 1 - 2 grams topical BID 100 grams 5RF M19.041 - Primary osteoarthritis, right hand, M19.042 - Primary osteoarthritis, left hand To diclofenac sodium 1% apply to involved hand joints 4 times a day 4 grams topical QID 100 grams 5RF M19.041 - Primary osteoarthritis, right hand, M19.042 - Primary osteoart hritis, left hand Coding Level of Care Code Est Pt Level 3 (74014) Complex EM visit Add On G2211 Diagnoses Age-related osteoporosis without current pathological fracture M81.0 Osteoporosis type: age-related Presence of current pathological fracture: without current pathological fracture Primary osteoarthritis of both hands M19.041; M19.042 Osteoarthritis type: primary Encounter for monitoring denosumab therapy Z51.81; Z79.620
--- NOTE | 2024-12-14 09:06 | MHC.OFFVIS ---
Vital Signs 12/14/24 09:11 Height 5 ft 4 in Weight 119 lb 0.794 oz BMI 20.4 BP 120/70 Blood Pressure Location Lt brachial Position Sitting Pulse 57 Pulse Source Pulse Oximeter Pulse Oximetry (%) 97 Oxygen Delivery Method Room Air Intake Visit Reasons: osteoporosis/prolia inj Intake Note: Patient presents for Osteoporosis and Prolia injection. Allergies No Known Allergies Allergy (Verified 12/14/24 09:09) Medication List - Last Reconciled 12/14/24 by Lidia Carbajal MD albuterol sulfate 90 mcg/actuation 2 puffs inhalation DAILY calcium carbonate-vitamin D3 600 mg-20 mcg (800 unit) 1 tab PO DAILY cyanocobalamin (vitamin B-12) 500 mcg PO DAILY denosumab (Prolia) 60 mg subcut [id number] diclofenac sodium 1% 1 - 2 grams topical BID entecavir 0.5 mg PO DAILY 30 days loratadine 10 mg PO DAILY naltrexone 25 mg PO DAILY pantoprazole 40 mg PO DAILY sertraline 25 mg PO DAILY thiamine HCl (vitamin B1) (Vitamin B-1) 100 mg PO DAILY [facility] Medical History (Updated 12/14/24 @ 09:42 by Liida Carbajal MD) Rheumatoid factor positive Environmental allergies Hepatitis B Osteoporosis Alcoholic cirrhosis of liver without ascites Surgical History History of throat surgery History of esophagogastroduodenoscopy (EGD) Social History Alcohol intake: current Alcohol intake frequency: former alcohol drinker Alcohol type: beer Patient Tobacco Use Status: Current everyday Tobacco user Tobacco use type: Cigarette Cigarettes Per Day: 6 Years Smoked: 50 Current occupational status: employed 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 Physical Exam Vital Signs: Last Vital Signs Pulse 57 12/14/24 09:11 BP 120/70 12/14/24 09:11 Pulse Ox 97 12/14/24 09:11 Oxygen Delivery Method Room Air 12/14/24 09:11 BMI result Body Mass Index 20.4 Office Meds Prolia 60 mg/mL subcutaneous syringe Performing Provider: Lidia Carbajal MD [place] [facility] Administered by: Lidia Carbajal MD on 12/14/24 09:38 Dose Route Admin Location Dispensed Lot Number Expiration Date NDC Communications Scientist 60 mg subcut left deltoid 1 mL [id number] 05/17/27 37543-897-75 AM[employer] Assessment & Plan Assessment & Plan (1) Osteoporosis: Comment: Anshuia -December 2020 - present Code(s): M81.0 - Age-related osteoporosis without current pathological fracture Category: Medical Qualifiers: Osteoporosis type: age-related Presence of current pathological fracture: without current pathological fracture Qualified Code(s): M81.0 - Age-related osteoporosis without current pathological fracture Plan: Duplicate Plan duplicate Orders: Orders AMB Denosumab Injection Practice Supplied Today M81.0 - Age-related osteoporosis without current pathological fracture XR DEXA axial skeleton Today M81.0 - Age-related osteoporosis without current pathological fracture Comprehensive Met. Panel 6 Months E55.9 - Vitamin D deficiency, unspecified, M81.0 - Age-related osteoporosis without current pathological fracture Vitamin D 25-OH Total 6 Months E55.9 - Vitamin D deficiency, unspecified, M81.0 - Age-related osteoporosis without current pathological fracture Complete Blood Count Auto Diff 6 Months E55.9 - Vitamin D deficiency, unspecified, M81.0 - Age-related osteoporosis without current pathological fracture Medications: Changed From diclofenac sodium 1% apply to involved hand joints when needed 1 - 2 grams topical BID 100 grams 5RF M19.041 - Primary osteoarthritis, right hand, M19.042 - Primary osteoarthritis, left hand To diclofenac sodium 1% apply to involved hand joints 4 times a day 4 grams topical QID 100 grams 5RF M19.041 - Primary osteoarthritis, right hand, M19.042 - Primary osteoarthritis, left hand Coding Level of Care Code Procedure Only Diagnoses Age-related osteoporosis without current pathological fracture M81.0 Osteoporosis type: age-related Presence of current pathological fracture: without current pathological fracture
[2024-12-14 09:11] VITALS: BP 120/70; PULSE 57; O2SAT 97; BMI 20.4
--- OUTSIDE RECORDS SUMMARY | 2024-12-14 09:37 | XMS_ITS | Encounter Summary ---
Author Organization [employer] Address [address] [facility] 7t [place] [address] Care Team Providers Care Production Or Plant Engineer Name Role Phone Rubi Osuna MD Primary Care Provider [phone] Encounter Details Date Type Department Care Team (Late st Contact Info) Description 08/28/2024 Orders Only [place] [address], [place] [id number] Provider, MD Karina Social History Tobacco Use [...] Description 12/20/2024 2:00 PM EST Office Visit [facility] ADULT DENTAL [address] [place] [address] Devin Wilcox documented as of this encounter [...] documented as of this encounter Care Teams Production Or Plant Engineer Relationship Specialty Start Date End Date Rubi Osuna MD [address] [place] [address] PCP - General Family Medicine 11/17/13 documented as of this encounter
--- OUTSIDE RECORDS SUMMARY | 2024-12-14 09:37 | XMS_ITS | Encounter Summary ---
Author Organization [employer] Address [address] [facility] [address] 7[address] [place] [address] Care Team Providers Care Hospice Superintendent Name Role Phone Rubi Osuna MD Primary Care Provider [phone] Reason for Visit * Reason Onset Date Comments insurance 05/02/2024 Encounter Details Date Type Department Care Team ([facility] st Contact Info) Description 05/02/2024 Telephone [facility] [address] [place] [address] Devin Wilcox insurance Social History Tobacco Use [...] 2:00 PM EST Office Visit [facility] AD[facility] [address] [place] [address] Devin Wilcox documented as of this encounter Visit Diagnoses Not on filedocumented in this encounter Additional Health Concerns Assessment Noted Time PHQ-9 Depression Total Score: 1 05/26/20 23 10:03 AM EDT documented as of this encounter Care Teams Hospice Superintendent Relationship Specialty Start Date End Date Rubi Osuna MD [address] [place] [address] PCP - General Family Medicine 11/17/13 documented as of this encounter
--- OUTSIDE RECORDS SUMMARY | 2024-12-14 09:37 | XMS_ITS | Patient Health Record ---
Author Organization [facility] Address [address] [place] [address] Care Team Providers Care Wardrobe Stylist Name Role Phone KAITLINDEANGELO Primary Care Provider Daniel Phelps Jr Unavailable Brandi Watson Unavailable Unavailable ALLERGIES No Known Allergies REASON FOR REFERRAL No Information MEDICATIONS Medication SIG (Take, Route, Frequency, Duration) Notes Start Date End Date Status Fluticasone Propionate (Inhal) 100 MCG/BLIST 1 puff Inhalation Twice a day Active Entecavir 0.5 MG 1 tablet on an empty stomach Orally Once a day for 10 day(s) Active Fluconazole 200 MG 1 tablet Orally for 14 days 05/15/2022 Active prednisoLONE 5 MG 1 tablet in the morn ing with food or milk Orally Once a day for 30 day(s) Active Loratadine 10 MG 1 tablet Orally Once a day for 30 day(s) Active Albuterol Sulfate (5 MG/ML) 0.5% as directed Inhalation Activ e Trelegy Ellipta 100-62.5-25 MCG/INH 1 puff Inhalation Once a day Active Omeprazole 40 MG 1 capsule 30 minutes before morning meal Orally Once a day for 30 day(s) Active Calcium + D 500-1000-40 MG-UNT-MCG as directed Orally Active Ibuprofen 800 MG 1 tablet with food o r milk as needed Orally every 8 hrs Active Pantoprazole Sodium 40 MG 1 tablet Orall y Once a day for 30 days 05/13/2022 Active Naltrexone HCl 50 MG 1 tablet Orally Onc e a day for 30 day(s) Active IMMUNIZATIONS Vaccine Route Administration Date Status Comme nts Influenza Unknown 09/09/2021 Administered SOCIAL HISTORY Tobacco Use: Social History Observation Description Date Details (start date - stop date) Current Smoker NA - NA Sex Assigned At : Social History Observation Description Sex Assigned At Unknown Tobacco Use/Smoking Question Answer Notes Patient is a current smoker Alcohol Screen Question Answer Notes Did you have a drink contain ing alcohol in the past year? Yes How often did you have a dri nk containing alcohol in the past year? 4 or more times a week (4 points) How many drinks did you have on a typical day when you were drinking in the past year? 3 or 4 drinks (1 point) How often did you have 6 or more drinks on one occasion in the past year? Weekly (3 points) Points 8 Interpretation Positive PROBLEMS Problem Type ICD Code Onset Dates Problem Status W/U Status Risk SNOMED Code Notes Problem Dysphagia (R13.10) Active confirmed Dys phagia (42292242) Problem Gastroesophageal reflux disease without esophagitis (K21.9) Active confirmed 336229825 Problem Dysphagia, unspecified type (R13.10) Active confirmed 06036211 Problem Colonoscopy refused (Z53.20) Active confirmed [id number] PLAN OF TREATMENT Future Test Test Name Order Date UPPER GI ENDOSCOPY 05/13/2022 Insurance Providers Payer Name Payer Address Payer Phone Subscriber Number Group Number Insured Name Patient Relationship to Insured Coverage Start Date Coverage End Date [employer] [place] [address] [address] [place] [address] [id number] ARJUN LYNNE Self - patient is the insured MEDICAL (GENERAL) HISTORY Medical History History ICD Code rheumatoid arthritis osteoporosis COPD LINO Substance abuse with cocaine, currently in remission Chronic hepatitis B Pulmonary nodule Alcohol abuse Surgical History Surgery Date(Month/Year)
--- OUTSIDE RECORDS SUMMARY | 2024-12-14 09:37 | XMS_ITS | Encounter Summary ---
Author Organization [employer] Address [address] [facility] [address] [place] [address] Care Team Providers Care Outpatient Dietitian Name Role Phone Ruib Osuna MD Primary Care Provider [phone] Encounter Details Date Type Department Care Team (Latest Contact Info) Description 01/15/2021 Abstract [facility] CONVERSIONS Dental, Provider, DDS Social History [...] [facility] ADULT D[facility] [address] [place] [address] Devin Wilcox documented as of this encounter Visit Diagnoses Not on filedocumented in this encounter Care Teams Outpatient Dietitian Relationship Specialty Start Date End Date Rubi Osuna MD [address] [place] [id number] PCP - General Family Medicine 11/17/13 documented as of this encounter
--- OUTSIDE RECORDS SUMMARY | 2024-12-14 09:37 | XMS_ITS | Encounter Summary ---
Author Organization [employer] Address [address] [facility] [address]t [place] [address] Care Team Providers Care Unhairing Inspector Name Role Phone Rubi Osuna MD Primary Care Provider [phone] Encounter Details Date Type Department Care Team (Latest Contact Info) Description 02/06/2019 Abstract [facility] CONVERSIONS Dental, Provider, DDS Social [...] 2:00 PM EST Office Visit [facility] ADULT DENTAL [address] [place] [address] Devin Wilcox documented as of this encounter Visit Diagnoses Not on filedocumented in this encounter Care Teams Unhairing Inspector Relationship Specialty Start Date End Date Rubi Osuna MD [address] [place] [address] PCP - General Family Medicine 11/17/13 documented as of this encounter
--- OUTSIDE RECORDS SUMMARY | 2024-12-14 09:37 | XMS_ITS | Encounter Summary ---
Author Organization [employer] Address [address] [facility] [address] [place] [address] Care Team Providers Care Radiology Physician Name Role Phone Rubi Osuna MD Primary Care Provider [phone] Reason for Visit * Reason Onset Date Comments insurance inactive? 08/10/2024 Encounter Details Date Type Department Care Team (Late st Contact Info) Description 08/10/2024 Telephone [facility] [address] [place] [address] Devin Wilcox insurance inactive? Social History Tobacco [...] but states that the [facility] is active[facility] will contact [facility] to verify eligibility and will contact patient to update and schedule if able to do so DR documented in this encounter Plan of Treatment Upcoming Encounters Date Type Department Care Team (Late st Contact Info) Description 12/20/2024 2:00 PM EST Office Visit [facility] ADULT D[facility] [address] [place] [address] Devin Wilcox documented as of this encounter Visit Diagnoses Not on filedocumented in this encounter Additional Health Concerns Assessment Noted Time PHQ-9 Depression Total Score: 1 05/26/20 23 10:03 AM EDT documented as of this encounter Care Teams Radiology Physician Relationship Specialty Start Date End Date Rubi Osuna MD [address] [place] [phone] PCP - General Family Medicine 11/17/13 documented as of this encounter
--- OUTSIDE RECORDS SUMMARY | 2024-12-14 09:38 | XMS_ITS | Data Portability ---
Author Organization [place] - [facility], Allergy Address [address] [address] Care Team Providers Care Appointment Coordinator Name Role Phone [facility] Primary Care Provider Assessment Encounter Date [...] Address Organization Details Recorded Time Allergic rhinitis 40151299 Active 2017 Other allergic rhinitis; Note: Date Diagnosed : 8 9:31 AM (J30.89) Not Available [facility] 4 03:20:41 Dysphonia 44675543 Active 2017 Hoarsenes s; Note: Date Diagnosed : 8 9:13 AM (R49.0) Not Available [facility] 4 03:20:40 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 Polyp of vocal cord and larynx; Note: Date Diagnosed : 09/22/2023 4:26 PM (J38.1) ERICK TERRY MD [address] [place] [address], [facility] [place], [address] , [place] [facility] 4 15:06:01 Tobacco user 031824923 Active 2017 Tobacco use; Note: Date Diagnosed : 8 9:14 AM (Z72.0) Not Available [facility] 4 03:20:41 Stomatiti s 89756144 Active 2023 Oral thrush; Note: Date Diagnosed : 01/20/2024 11:27 AM (B37.0) Not Available [facility] 03:20:40 Candidias is of mouth 19231562 Active 2023 Oral thrush; Note: Date Diagnosed : 01/20/2024 11:27 AM (B37.0) Not Available [facility] 03:20:40 Tobacco dependenc e caused by cigarette s 00158279452 047443 Active 2023 ERICK TERRY MD 100 [facility],[place] [address], [place], [address] , [place] - [facility] 10:00:32 Problem Notes None recorded. Procedures Surgical History Date Name Laterality Status Provider Name and Address Organization Details Recorded Time 11/29/2024 FOL_DP completed ERICK TERRY MD [address] [place] [address], [place], [address], [facility] - [facility] 11/28/2024 17:01:02 05/25/2024 FOL_DP completed ERICK TERRY MD [address] [place] [address], [place], [address], [place] [facility] 05/25/2024 09:57:21 Imaging Results Imaging Date Name [...] mg tablet 09/22 completed Medicati on ID: [id number] D uration Value: 30 Brand Name: predniso ne Send Method: E-Prescr ibed Sub s Allowed: subs OK Medic ationGen ericName : predniso ne Not Available Not Available Not Available cyanocoba meño (vit B-12) 500 mcg tablet active Not Available Not Available Not Available methotrex ate sodium 2.5 mg tablet 09/22 completed Medicati on ID: [id number] D uration Value: 28 Brand Name: methotre xate sodium S end Method: E-Prescr ibed Sub s Allowed: subs OK Medic ationGen ericName : methotre xate sodium Not Available Not Available Not Available IBU 600 mg tablet 09/22 completed Medicati on ID: [id number] D uration Value: 10 Brand Name: IBU [...] layed release 11/29 completed Medicati on ID: [id number] B rand Name: bisacody l Send Method: E-Prescr ibed Sub s Allowed: subs OK Speci al Instruct ion: TAKE 2 TABLETS BY MOUTH AT NOON THE DAY BEFORE COLONOSC OPY Medi cationGe nericNam e: bisacody l Not Available Not Available Not Available polyethyl swatih glycol 3350 17 gram/dose oral powder TAKE [...] spray,royce pension 09/22 completed Medicati on ID: [id number] D uration Value: 30 Brand Name: fluticas one propiona te Send Method: E-Prescr ibed Sub s Allowed: subs OK Medic ationGen ericName : fluticas one propiona te Not Available Not Available Not Available loratadin e 10 mg tablet active Medicati on ID: [id number] B rand Name: loratadi ne Send Method: [...] Updated DateTime 05/25/2024 162.56 cm 20.1 kg/m2 59852.31 g Aurora Avila [place] - [facility] 05/25/2024 09:50:28 Date Recorded Body height Body mass index (BMI) Body weight Provider Name and Address Organization Details Last Updated DateTime 11/29/2024 162.56 cm 20.8 kg/m2 63183.68 g Brandi Severinokati [place] - [facility] 11/29/2024 09:19:04 Social History None recorded. Functional Status None recorded. Mental Status None recorded. Family History Nothing Reported. Medical History No medical history recorded. Gynecological HistoryNo gynecological history recorded. Obstetrics History GPAL:G 0 P 0 0 0 0 Past Encounters Encounter ID Performer Location Encounter Start Date Encounter Closed Date Diagnosis/Indication Diagnosis SNOMED-CT Code Diagnosis ICD10 Code Diagnosis Note [id number] ERICK TERRY MD [facility] [address] [address] 05/25/2024 09:41:35 05/25/2024 10:00:21 Polyp of vocal cord or larynx 536981128 J38.1 Tobacco de pendence caused by cigarettes 9792711389 0070195 F17.210 [id number] ERICK TERRY MD [facility] [address] [address] 11/29/2024 09:09:07 11/29/2024 09:31:15 Polyp of vocal cord or larynx 561734624 J38.1 Tobacco de pendence caused by cigarettes 1331561363 8355778 F17.210 Health Concerns Section Related Observation LastModified by Organization Detai ls LastModified Time None Recorded Concern Status LastModified by Organization Details LastModified Time None Recorded Advance Directives Directive None Recorded Payers Encounter Date Sequence Insurance Name Policy Number Policy Nguyen Covered Member ID Nguyen Member ID Guarantor Name 05/25/2024 1 [employer] [facility] [id number] Oc Saucedo [id number] Seng Saucedo 11/29/2024 1 [employer] [facility] [id number] Oc Saucedo [id number] Seng Saucedo Notes Date Note Type [...] 5 cig daily ERICK TERRY MD 100 [facility],[address], [address], [place] - [facility] 05/25/2024 10:00:57 11/29/2024 text/html Bilateral renke edema11/08/23 [...] smoking cessation recommended ERICK TERRY MD [address] [facility],[place] [address], [place], [address], [place] - [facility] 11/29/2024 09:31:54 OBGyn Episode No OBEpisode recorded.
--- OUTSIDE RECORDS SUMMARY | 2024-12-14 09:38 | XMS_ITS | Encounter Summary ---
Author Organization [employer] Address 75 [facility] 7t [place] [address] Care Team Providers Care Cook Barbecue Name Role Phone Rubi Osuna MD Primary Care Provider [phone] Reason for Visit * Reason Comments Med Refill Encounter Details Date Type Department Care Team ([facility] Contact Info) Description 12/11/2024 Refill [facility] & PEDS [address] [place] [address] Rubi Osuna MD [address] [place] [address] Social History Tobacco Use Types Packs/Day Years [...] 2:00 PM EST Office Visit [facility] ADULT [facility] [address] [place] [address] Devin Wilcox documented as of this encounter Visit Diagnoses Not on filedocumented in this encounter Additional Health Concerns Assessment Noted Time PHQ-9 Depression Total Score: 1 05/26/20 23 10:03 AM EDT documented as of this encounter Care Teams Cook Barbecue Relationship Specialty Start Date End Date Rubi Osuna MD [address] [place] [address] PCP - General Family Medicine 11/17/13 documented as of this encounter
--- OUTSIDE RECORDS SUMMARY | 2024-12-14 09:38 | XMS_ITS | Continuity of Care Document ---
Author Organization [place] - [facility], [facility] Address [address] [place] [address] Care Team Providers Care Green Coffee Blender Name Role Phone [facility] Primary Care Provider Assessment Encounter Date [...] Address Organization Details Recorded Time Allergic rhinitis 65266582 Active 2017 Other allergic rhinitis; Note: Date Diagnosed : 8 9:31 AM (J30.89) Not Available [facility] 4 03:20:41 Dysphonia 46990573 Active 2017 Hoarsenes s; Note: Date Diagnosed : 8 9:13 AM (R49.0) Not Available [facility] 4 03:20:40 Polyp of vocal cord or larynx 111911099 Active 2022 Polyp of vocal cord and larynx; Note: Date Diagnosed : 09/22/2023 4:26 PM (J38.1) ERICK TERRY MD 100 [facility],[place] [address], [place], [address] , [place] - [facility] 4 15:06:01 Tobacco user 029418125 Active 2017 Tobacco use; Note: Date Diagnosed : 8 9:14 AM (Z72.0) Not Available [facility] 4 03:20:41 Stomatiti s 78584569 Active 2023 Oral thrush; Note: Date Diagnosed : 01/20/2024 11:27 AM (B37.0) Not Available [facility] 4 03:20:40 Candidias is of mouth 77407112 Active 2023 Oral thrush; Note: Date Diagnosed : 01/20/2024 11:27 AM (B37.0) Not Available [facility] 4 03:20:40 Tobacco dependenc e caused by cigarette s 82681469206 532320 Active 2023 ERICK TERRY MD [address] [place] [address],[place] [address], [place], [address] , [place] [facility] 4 10:00:32 Problem Notes None recorded. Procedures Surgical History Date Name Laterality Status Provider Name and Address Organization Details Recorded Time 11/29/2024 FOL_DP completed ERICK TERRY MD [address] [place] [address],[place] [address], [place], [address], [place] - [facility] 11/28/2024 17:01:02 05/25/2024 FOL_DP completed ERICK TERRY MD [address] [place] [address],[address], [address], [place] - [facility] 05/25/2024 09:57:21 Imaging Results None recorded. Procedure [...] mg tablet 09/22 completed Medicati on ID: [id number] D uration Value: 30 Brand Name: predniso ne Send Method: E-Prescr ibed Sub s Allowed: subs OK Medic ationGen ericName : predniso ne Not Available Not Available Not Available cyanocoba meño (vit B-12) 500 mcg tablet active Not Available Not Available Not Available methotrex ate sodium 2.5 mg tablet 09/22 completed Medicati on ID: [id number] D uration Value: 28 Brand Name: methotre xate sodium S end Method: E-Prescr ibed Sub s Allowed: subs OK Medic ationGen ericName : methotre xate sodium Not Available Not Available Not Available IBU 600 mg tablet 09/22 completed Medicati on ID: [id number] D uration Value: 10 Brand Name: IBU [...] layed release 11/29 completed Medicati on ID: [id number] B rand Name: bisacody l Send Method: [...] spray,royce pension 09/22 completed Medicati on ID: [id number] D uration Value: 30 Brand Name: fluticas one propiona te Send Method: E-Prescr ibed Sub s Allowed: subs OK Medic ationGen ericName : fluticas one propiona te Not Available Not Available Not Available loratadin e 10 mg tablet active Medicati on ID: [id number] B rand Name: loratadi ne Send Method: [...] Updated DateTime 11/29/2024 162.56 cm 20.8 kg/m2 81892.68 g Brandi Velvet [place] - [facility] 11/29/2024 09:19:04 Social History None recorded. Functional Status None recorded. Mental Status None recorded. Family History Nothing Reported. Medical History No medical history recorded. Gynecological HistoryNo gynecological history recorded. Obstetrics History GPAL:G 0 P 0 0 0 0 Past Encounters Encounter ID Performer Location Encounter Start Date Encounter Closed Date Diagnosis/Indication Diagnosis SNOMED-CT Code Diagnosis ICD10 Code Diagnosis Note [id number] ERICK TERRY MD [facility] [address] [address] 11/29/2024 09:09:07 11/29/2024 09:31:15 Polyp of vocal cord or larynx 944613107 J38.1 Tobacco de pendence caused by cigarettes 8966430114 2331771 F17.210 Health Concerns Section Related Observation LastModified by Organization Detai ls LastModified Time None Recorded Concern Status LastModified by Organization Details LastModified Time None Recorded Payers Encounter Date Sequence Insurance Name Policy Number Policy Nguyen Covered Member ID Nguyen Member ID Guarantor Name 11/29/2024 1 [employer] [facility] [id number] Oc Saucedo [id number] Seng Saucedo Notes Date Note Type [...] edema. smoking cessation recommended ERICK TERRY MD [address] [place] [address], [place], [address], [place] [facility] 11/29/2024 09:31:54 OBGyn Episode No OBEpisode recorded.
--- OUTSIDE RECORDS SUMMARY | 2024-12-14 09:38 | XMS_ITS ---
Author Organization [facility] Address [address] [place] [address] Care Team Providers Care Lead Consultant Name Role Phone KAITLINROSALBADEANGELO Primary Care Provider Daniel Phelps Jr Unavailable [phone] Brandi Watson Unavailable Unavailable REASON FOR VISIT r/f pantoprazole MEDICATIONS Medication SIG (Take, Route, Frequency, Duration) Notes Start Date End Date Status Pantoprazole Sodium 40 MG 1 tablet Orall y Once a day for 30 days 05/13/2022 Active Encounters Encounter Location Date Provider Diagnosis [facility] [address] [place] [address] 09/08/2023 Daniel Osborn Jr PLAN OF TREATMENT Medication Medication Name Sig Start Date Stop Date Notes Pantoprazole Sodium 40 MG 1 tablet Orall y Once a day for 30 days 05/13/2022
--- OUTSIDE RECORDS SUMMARY | 2024-12-14 09:38 | XMS_ITS | Encounter Summary ---
Author Organization [email or web address] Address 75 [facility] 7t [place] [address] Care Team Providers Care Contact Lens Inspector Name Role Phone Rubi Osuna MD Primary Care Provider [phone] Reason for Visit * Reason Comments Med Refill Encounter Details Date Type Department Care Team (Late st Contact Info) Description 01/28/2023 Refill [facility] MED & PEDS [address] [place] [address] Riana Zimmer MD [address] [place] [address] Social History Tobacco Use Types Packs/Day Years [...] 9:55 AM EDT Pharmacy should send to [facility] practice Not seen here Please call [phone] documented in this encounter Plan of Treatment Upcoming Encounters Date Type Department Care Team (Late st Contact Info) Description 12/20/2024 2:00 PM EST Office Visit [facility]ULT [facility] [address] [place] [address] Devin Wilcox documented as of this encounter Visit Diagnoses Not on filedocumented in this encounter Care Teams Contact Lens Inspector Relationship Specialty Start Date End Date Rubi Osuna MD [address] [place] [address] PCP - General Family Medicine 11/17/13 documented as of this encounter
--- OUTSIDE RECORDS SUMMARY | 2024-12-14 09:38 | XMS_ITS | Encounter Summary ---
Author Organization [employer] Address 75 [facility] 7t [place] [address] Care Team Providers Care Brake Repairer Bus Name Role Phone Rubi Osuna MD Primary Care Provider [phone] Reason for Visit * Reason Comments Med Refill Encounter Details Date Type Department Care Team (Late st Contact Info) Description 02/04/2023 Refill [facility] MED & PED[facility] [address] [place] [address] Riana Zimmer MD [address] [place] [address] Social History Tobacco Use Types Packs/Day Years [...] 2:00 PM EST Office Visit [facility] [address] [place] [address] Devin Wilcox documented as of this encounter Visit Diagnoses Not on filedocumented in this encounter Care Teams Brake Repairer Bus Relationship Specialty Start Date End Date Rubi Osuna MD [address] [place] [address] PCP - General Family Medicine 11/17/13 documented as of this encounter
--- OUTSIDE RECORDS SUMMARY | 2024-12-14 09:38 | XMS_ITS | Encounter Summary ---
Author Organization [email or web address] Address [address] [facility] [address] 7[address] [place] [address] Care Team Providers Care Bioinformatics Software Engineer Name Role Phone Rubi Osuna MD Primary Care Provider [phone] Encounter Details Date Type Department Care Team [...] 12/20/2024 2:00 PM EST Office Visit [facility] [address] [place] [address] Devin Wilcox documented as of this encounter Procedures Procedure Name Priority Date/Time Associated Diagnosis Comments BASIC METABOLIC PANEL Routine 12/12/2024 9:28 AM EST documented in this encounter Results * (ABNORMAL) Basic Metabolic Panel (12/12/2024 9:28 AM EST) Sodium 141 135 - 145 mmol/L [facility] Potassium 4.2 3.3 - 5.1 mmol/L [facility] Chloride 103 96 - 108 mmol/L [facility] Carbon Dioxide 28 22 - 29 mmol/L [facility] Anion Gap 14 12 - 20 [facility] Urea Nitrogen (BUN) 27(H) 9 - 16 mg/dL [facility] Creatinine, Serum 1.00 0.5 - 1.4 mg/dL [facility] Estimated Glomerular Filt Rate 56 [facility] Comment:Chronic Kidney Disea se: Estimated GFR < 60 mL/min/1.29e9Syzolr Kidney Disease: Estimated GFR < 15 mL/min/1.73m2 Glucose 103 60 - 115 mg/dL [facility] Calcium 10.0 8.4 - 10.2 mg/dL [facility] 12/12/2024 9:28 AM EST 12/12/2024 9:28 AM EST us Generic External Data Provider LAB BLOOD ORDERAB LES Final Result [facility] [address] [place] [address] [phone] documented in this encounter Visit Diagnoses Not on filedocumented in this encounter Additional Health Concerns Assessment Noted Time PHQ-9 Depression Total Score: 1 05/26/20 23 10:03 AM EDT documented as of this encounter Care Teams Bioinformatics Software Engineer Relationship Specialty Start Date End Date Rubi Osuna MD [address] [place] [address] PCP - General Family Medicine 11/17/13 documented as of this encounter
--- OUTSIDE RECORDS SUMMARY | 2024-12-14 09:38 | XMS_ITS | Clinical Summary ---
Author Organization [employer] Address [address] [facility] [address] 7t [place] [address] Care Team Providers Care Parachute Taper Name Role Phone Rubi Osuna MD Primary Care Provider [phone] Allergies No known active allergies Medications Fluticasone [...] DEPARTMENT Provider, Generic External Data 12/11/2024 Refill [facility] MED & PEDS [address] [place] [address] Rubi Osuna MD 11/07/2024 Refill [facility] [address] [place] [address] Rubi Osuna MD 11/06/[address] [facility] MEDICINE [address] [place], [place] [phone] Khushi Epperson MD 10/22/2024 Orders Only [facility] External Provider, [facility] 10/13/[address] [facility] MEDICINE [address] [place], [place] [phone] Rubi Osuna MD from Last 3 Months [...] Description 12/20/2024 2:00 PM EST Office Visit [facility] ADULT DENTAL [address] [place] [address] Devin Wilcox Health Maintenance Due Date Last [...] EST) Sodium 141 135 - 145 mmol/L [facility] Potassium 4.2 3.3 - 5.1 mmol/L [facility] Chloride 103 96 - 108 mmol/L [facility] Carbon Dioxide 28 22 - 29 mmol/L [facility] Anion Gap 14 12 - 20 [facility] Urea Nitrogen (BUN) 27(H) 9 - 16 mg/dL [facility] Creatinine, Serum 1.00 0.5 - 1.4 mg/dL [facility] Estimated Glomerular Filt Rate 56 [facility] Comment:Chronic Kidney Disea se: Estimated GFR < 60 mL/min/1.40j1Jbcjmc Kidney Disease: Estimated GFR < 15 mL/min/1.73m2 Glucose 103 60 - 115 mg/dL [facility] Calcium 10.0 8.4 - 10.2 mg/dL [facility] 12/12/2024 9:28 AM EST 12/12/2024 9:28 AM EST us Generic External Data Provider LAB BLOOD ORDERAB LES Final Result [facility] [address] [place] [address] [phone] * XR Foot 1-2 Views Left (10/22/2024 3:08 PM EST) Anatomical Region Laterality Modality Lower Extremities, Foot Left Radiogra phic Imaging 10/22/2024 3:08 PM EST Narrative 10/22/2024 3:10 PM EST ? [facility] ?[address] ?[place] [address] ?XRay Report ? Signed ? Patient: Czausz,Cheryllann ?MR#: [id number] ?? [id number] ? : 1960 ?Acct:[id number] ? Age/Sex: 64 / F ?ADM Date: 01/05/25 ? Loc: HO.ED ? Attending Dr: ? Ordering Physician: Clinton Hunt ?? Date of Service: 10/22/24 ?? Procedure(s): XR foot LT 2V ?? Accession Number(s): [id number] ? cc: Clinton Hunt; Rubi Osuna MD [...] DD/ 1508 ? TD/TT: 10/22/24 1508 ? Property Insurance Claims Examiner: ? Procedure Note Donotuseinterpreter, Image - 10/22/2024 [place] [address] XRay Report Signed Patient: Seng LynneMR#: [id number] : 9Acct:[id number] Age/Sex: 64 / FADM Date: 10/22/24 Loc: HO.ED Attending Dr: Ordering Physician: Clinton Hunt Date of Service: 10/22/24 Procedure(s): XR foot LT 2V Accession Number(s): [id number] cc: Clinton Hunt; Rubi Osuna MD CLINICAL [...] 10/22/24 1509 DD/ 1508 TD/TT: 10/22/24 1508 Property Insurance Claims Examiner: [facility] External Provider IMG XR PROCEDURES Edited Result - Final * BI Mammogram Screening Tomosynthesis Bilateral (07/08/2024 8:00 AM EDT) Anatomical Region Laterality Modality Breast Bilateral Mammography 07/08/2024 8:00 AM EDT Narrative 07/20/2024 8:57 AM EDT ? [facility] ? [address] ?[place] [address] ? Mammography Report ? Signed ? Patient: Czausz,Cheryllann ?MR#: [id number] ?? [id number] ? : 1960 ?Acct:[id number] ? Age/Sex: 63 / F ?ADM Date: 07/08/24 ? Loc: HO.MAMMO ? Attending Dr: Rubi Osuna MD ? Ordering Physician: Rubi Osuna MD ?Results: 1Negati ?? ve ? Date of Service: 07/08/24 ?Follow Up: 1 Year From Orig ?? inal Mammogram ? Procedure(s): MM tomosynthesis screening BI ?? Accession Number(s): [id number] ? cc: Rubi Osuna MD ? EXAMINATION: [...] DD/ 0800 ? TD/TT: 07/08/24 0815 ? Property Insurance Claims Examiner: ? Procedure Note Shai, Brad - 07/20/2024 [place] [facility] [address] [place] [address] Mammography Report Signed Patient: Seng LynneMR#: [id number] : 9Acct:[id number] Age/Sex: 63 / FADM Date: 07/08/24 Loc: HO.MAMMO Attending Dr: Rubi Osuna MD Ordering Physician: Rubi Osuna MDResults: 1Negati ve Date of Service: 07/08/24Follow Up: 1 Year From Orig ina Mammogram Procedure(s): MM tomosynthesis screening BI Accession Number(s): [id number] cc: Rubi Osuna MD EXAMINATION: MM SCREENING [...] 07/20/24 08 DD/ 08 TD/TT: 07/08/24 0815 Property Insurance Claims Examiner: us Rubi Osuna MD IMG BI PROCEDURES Edited Result - Final * Hepatitis C Ab (06/06/2024 11:58 AM EDT) Hepatitis C Antibody Nonreactive Nonreactive [facility] Comment:Antibodies to HCV no t detected; does not exclude early acuteHCV infection. 06/06/2024 11:5 8 AM EDT 06/06/2024 12:03 PM EDT us Generic External Data Provider LAB BLOOD ORDERAB LES Final Result [facility] [address] [place] [phone] from Last 3 Months or Most Recently Relevant to Health Maintenance Insurance [employer] Care Teams Parachute Taper Relationship Specialty Start Date End Date Rubi Osuna MD [address] [place] [address] PCP - General Family Medicine 11/17/13
== END 2024-12-14 09:34 | disposition home or self-care (01) ==
LOC: HO.RHE 08:59
PROVIDERS: PCP Student in an Organized Health Care Education/Training Program; Visit Provider Student in an Organized Health Care Education/Training Program
DX: M81.0 Age-related osteoporosis without current pathological fracture (principal); M19.041 Primary osteoarthritis, right hand; M19.042 Primary osteoarthritis, left hand; Z51.81 Encounter for therapeutic drug level monitoring; Z79.620 Long term (current) use of immunosuppressive biologic
CPT/HCPCS: 99213

== ENCOUNTER → 2024-12-14 08:59 | Outpatient (BNVA) | payer OTHER, SELFPAY | PROVIDERS: PCP Student in an Organized Health Care Education/Training Program; Visit Provider Student in an Organized Health Care Education/Training Program | DX: M81.0 Age-related osteoporosis without current pathological fracture (principal); M19.041 Primary osteoarthritis, right hand; M19.042 Primary osteoarthritis, left hand; Z79.620 Long term (current) use of immunosuppressive biologic | CPT/HCPCS: 96372; J0897 ==

== ENCOUNTER 2025-01-24 08:54 | Outpatient (REF) | payer OTHER, SELFPAY ==
--- NOTE | ~2025-01-24 | MM_ITS ---
EXAMINATION: DXA BONE DENSITY AXIAL HISTORY: Estrogen deficiency TECHNIQUE: Tricida Dual energy absorptiometry (DEXA) of the lumbar spine, total left hip, and femoral neck was performed. COMPARISON: Comparison is made with the prior examination dated 10/29/2022. FINDINGS: The bone mineral density of the lumbar spine is 0.912 with a T-score of -2.2, and a Z-score of -0.3. This is indicative of osteopenia. This represents a BMD change of 8.3% compared to the prior exam. This is statistically significant. The bone mineral density of the left total hip is 0.792 with a T-score of -1.7, and a Z-score of -0.3. This is indicative of osteopenia. This represents a BMD change of 0.5% compared to the prior exam. This is not statistically significant. The bone mineral density of the left femoral neck is 0.743 with a T-score of -2.1, and a Z-score of -0.4. This is indicative of osteopenia. This represents a BMD change of 3.2% compared to the prior exam. FRACTURE RISK: The FRAX index suggests a ten year probability of major osteoporotic fracture of 27.2%, and of hip fracture 11.5%. MM/XR DEXA axial skeleton IMPRESSION: Based on bone mineral density, and according to World Health Organization (WHO) criteria, the diagnosis is consistent with osteopenia. All bone density values are in grams per centimeter squared (g/cm2). Statistically, 68% of repeat scans fall within 1 SD (+/- 0.010 g/cm2 for AP spine L1-L4) and 1 SD (+/- 0.012 g/cm2 for femur total) FRAX is a trademark of the [employer]'s [employer] Metabolic Bone Disease, a World Health Organization (WHO) Collaborating Center. Electronically signed by: Ok Szymanski MD 01/24/2025 09:34 AM EDT
--- OUTSIDE RECORDS SUMMARY | 2025-01-24 09:21 | XMS_ITS | Encounter Summary ---
Author Organization [employer] Address [address] [facility] 7t [place] [address] Care Team Providers Care Metaphysicist Name Role Phone Rubi Osuna MD Primary Care Provider [phone] Reason for Visit * Reason Comments Med Refill Encounter Details Date Type Department Care Team ([facility] Contact Info) Description 12/11/[address] [facility] MED & PEDS [address] [place] [address] Rubi Osuna MD 505 [place] [address] Social History Tobacco Use Types Packs/Day Years [...] Care Team (Late st Contact Info) Description 02/07/2025 2:00 PM EDT Office Visit [facility] ADULT DENTAL [address] [place] [address] Devin Wilcox documented as of this encounter Visit Diagnoses Not on filedocumented in this encounter Additional Health Concerns Assessment Noted Time PHQ-9 Depression Total Score: 1 05/26/20 23 10:03 AM EDT documented as of this encounter Care Teams Metaphysicist Relationship Specialty Start Date End Date Rubi Osuna MD [address] [place] [address] PCP - General Family Medicine 11/17/13 documented as of this encounter
--- OUTSIDE RECORDS SUMMARY | 2025-01-24 09:21 | XMS_ITS | Encounter Summary ---
Author Organization [employer] Address [address] 7t [place] [address] Care Team Providers Care Green Building Materials Designer Name Role Phone Rubi Osuna MD Primary Care Provider [phone] Reason for Visit * Reason Onset Date Comments insurance 05/02/2024 Encounter Details Date Type Department Care Team ([facility] st Contact Info) Description 05/02/2024 Telephone [facility] ADULT DENTAL [address] [place] [address] Devin Wilcox insurance Social History Tobacco Use [...] Description 02/07/2025 2:00 PM EDT Office Visit [facility] ADULT [facility] [address] [place] [address] Devin Wilcox documented as of this encounter Visit Diagnoses Not on filedocumented in this encounter Additional Health Concerns Assessment Noted Time PHQ-9 Depression Total Score: 1 05/26/20 23 10:03 AM EDT documented as of this encounter Care Teams Green Building Materials Designer Relationship Specialty Start Date End Date Rubi Osuna MD [address] [place] [address] PCP - General Family Medicine 11/17/13 documented as of this encounter
--- OUTSIDE RECORDS SUMMARY | 2025-01-24 09:21 | XMS_ITS | Encounter Summary ---
Author Organization [employer] Address [address] [facility] [address] [facility] [address] 7t [place] [address] Care Team Providers Care Associate Professor Of Education Name Role Phone Rubi Osuna MD Primary Care Provider [phone] Reason for Visit * Reason Comments Med Refill Encounter Details Date Type Department Care Team ([facility] st Contact Info) Description 01/02/2025 Refill [facility] [address] [place] [address] Rubi Osuna MD [address] [place], [place] [phone] Social History Tobacco Use Types Packs/Day Years [...] Description 02/07/2025 2:00 PM EDT Office Visit [facility] ADULT DENTAL [address] [place] [address] Devin Wilcox documented as of this encounter Visit Diagnoses Not on filedocumented in this encounter Additional Health Concerns Assessment Noted Time PHQ-9 Depression Total Score: 1 05/26/20 23 10:03 AM EDT documented as of this encounter Care Teams Associate Professor Of Education Relationship Specialty Start Date End Date Rubi Osuna MD [address] [place] [address] PCP - General Family Medicine 11/17/13 documented as of this encounter
--- OUTSIDE RECORDS SUMMARY | 2025-01-24 09:21 | XMS_ITS | Patient Health Record ---
Author Organization [facility] Address [address] [place] [address] Care Team Providers Care Director Of Conservation Name Role Phone KAITLINDEANGELO Primary Care Provider Daniel Phelps Jr Unavailable Brandi Watson Unavailable Unavailable Allergies No Known Allergies Reason For Referral No Information Medications Medication SIG (Take, Route, Frequency, Duration) Notes [...] e a day for 30 day(s) Active Immunizations Vaccine Route Administration Date Status Comme nts Influenza Unknown 09/09/2021 Administered Social History Tobacco Use: Social History Observation Description Date Details (start date - stop date) Current Smoker NA - NA Tobacco Use/Smoking Question Answer Notes Patient is [...] Weekly (3 points) Points 8 Interpretation Positive Section Notes: She has smoked one half pack per day for years. She has cut back to 2-3 per day since she started using patches. She drinks 3-6 alcoholic drinks per day. 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 Problems Problem Type SNOMED Code ICD Code Onset Dates Problem Status W/U Status Risk Notes Problem Dysphagia (81114088) Dysphagia (R13.10) Active confirmed Problem 091808921 Gastroesophageal reflux disease without esophagitis (K21.9) Active confirmed Problem 26416725 Dysphagia, unspecified type (R13.10) Active confirmed Problem 499248052463489 Colonoscopy refu sed (Z53.20) Active confirmed Plan Of Treatment Future Test Test Name Order Date UPPER GI ENDOSCOPY 05/13/2022 Insurance Providers Payer Name Payer Address Payer Phone Subscriber Number Group Number Insured Name Patient Relationship to Insured Coverage Start Date Coverage End Date [employer] [place] [address] [address] [place] [address] [id number] ARJUN LYNNE Self - patient is the insured Medical (General) History Medical History History ICD Code rheumatoid arthritis osteoporosis COPD LINO Substance abuse with cocaine, currently in remission Chronic hepatitis B Pulmonary nodule Alcohol abuse Surgical History Surgery Date(Month/Year)
--- OUTSIDE RECORDS SUMMARY | 2025-01-24 09:21 | XMS_ITS ---
Author Organization [facility] Address [address] [place] [address] Care Team Providers Care Centrifugal Drier Operator Name Role Phone KAITLINDEANGELO Primary Care Provider Daniel Phelps Jr Unavailable [phone] Brandi Watson Unavailable Unavailable REASON FOR VISIT r/f pantoprazole Medications Medication SIG (Take, Route, Frequency, Duration) Notes Start Date End Date Status Pantoprazole Sodium 40 MG 1 tablet Orall y Once a day for 30 days 05/13/2022 Active Encounters Encounter Location Date Provider Diagnosis [facility] [address] [place] [phone] 09/08/2023 Dainel Osborn Jr Plan Of Treatment Medication Medication Name Sig Start Date Stop Date Notes Pantoprazole Sodium 40 MG 1 tablet Orall y Once a day for 30 days 05/13/2022 Progress Notes * ARJUN LYNNEDOB:1959 (62 yo F)Acc No.[id number]:09/08/2023 Patient:?ARJUN LYNNE :1960???Age:62 Y???Sex:Female Address:[address] [place], [address] * Refills? Refill Pantoprazole Sodium Tablet Delayed Release, 40 MG, Orally, 30, 1 tablet, Once a day, 30 days, Refills=6 * true * Date:? Generated for Kristini gage/Ernag/eTransmitting on:?01/24/2025 09:21 AM EDT
--- OUTSIDE RECORDS SUMMARY | 2025-01-24 09:21 | XMS_ITS | Encounter Summary ---
Author Organization [employer] Address [address] [facility] 7t [place] [address] Care Team Providers Care Customs Consultant Name Role Phone Rubi Osuna MD Primary Care Provider [phone] Encounter Details Date Type Department Care Team (Latest Contact Info) Description 01/15/2021 Abstract [facility] CONVERSIONS Dental, Provider, DDS Social History [...] Care Team ( st Contact Info) Description 02/07/2025 2:00 PM EDT Office Visit [facility] ADULT DENTAL [address] [place] [address] Devin Wilcox documented as of this encounter Visit Diagnoses Not on filedocumented in this encounter Care Teams Customs Consultant Relationship Specialty Start Date End Date Rubi Osuna MD [address] [place] [address] PCP - General Family Medicine 11/17/13 documented as of this encounter
--- OUTSIDE RECORDS SUMMARY | 2025-01-24 09:21 | XMS_ITS | Encounter Summary ---
Author Organization [employer] Address [address] [facility] 7t [place] [address] Care Team Providers Care Stock Transfer Clerk Name Role Phone Rubi Osuna MD Primary Care Provider [phone] Encounter Details Date Type Department Care Team (Latest Contact Info) Description 02/06/2019 Abstract [facility] CONVERSIONS Dental, Provider, DDS Social History [...] Description 02/07/2025 2:00 PM EDT Office Visit [facility] ADULT DENT[facility] [address] [place] [address] Devin Wilcox documented as of this encounter Visit Diagnoses Not on filedocumented in this encounter Care Teams Stock Transfer Clerk Relationship Specialty Start Date End Date Rubi Osuna MD [address] [place] [address] PCP - General Family Medicine 11/17/13 documented as of this encounter
--- OUTSIDE RECORDS SUMMARY | 2025-01-24 09:21 | XMS_ITS | Encounter Summary ---
Author Organization [employer] Address [address] [facility] 7t [place] [address] Care Team Providers Care Safety Supervisor Name Role Phone Rubi Osuna MD Primary Care Provider [phone] Encounter Details Date Type Department Care Team (Late st Contact Info) Description 08/28/2024 Orders Only [facility] [address] [place], [place] [phone] Provider, MD Karina Social History Tobacco Use [...] 2:00 PM EDT Office Visit [facility] ADULT DENTAL [address] [place] [address] Devin Wilcox documented as of this encounter [...] documented as of this encounter Care Teams Safety Supervisor Relationship Specialty Start Date End Date Rubi Osuna MD [address] [place] [address] PCP - General Family Medicine 11/17/13 documented as of this encounter
--- OUTSIDE RECORDS SUMMARY | 2025-01-24 09:21 | XMS_ITS | Encounter Summary ---
Author Organization [employer] Address [address] [facility] [address] 7t [place] [address] Care Team Providers Care Spinning Machine Tender Name Role Phone Rubi Osuna MD Primary Care Provider [phone] Reason for Visit * Reason Onset Date Comments insurance inactive? 08/10/2024 Encounter Details Date Type Department Care Team (Late st Contact Info) Description 08/10/2024 Telephone [facility] ADULT [facility]AL [address] [place] [address] Devin Wilcox insurance inactive? Social History Tobacco [...] but states that the insurance is active. [facility] front end engineer [facility] will contact [facility] [employer] to verify eligibility and will contact patient to update and schedule if able to do so DR documented in this encounter Plan of Treatment Upcoming Encounters Date Type Department Care Team (Late st Contact Info) Description 02/07/2025 2:00 PM EDT Office Visit [facility] ADULT DENTAL [address] [place] [address] Devin Wilcox documented as of this encounter Visit Diagnoses Not on filedocumented in this encounter Additional Health Concerns Assessment Noted Time PHQ-9 Depression Total Score: 1 05/26/20 23 10:03 AM EDT documented as of this encounter Care Teams Spinning Machine Tender Relationship Specialty Start Date End Date Rubi Osuna MD [address] [place] [address] PCP - General Family Medicine 11/17/13 documented as of this encounter
--- OUTSIDE RECORDS SUMMARY | 2025-01-24 09:21 | XMS_ITS | Encounter Summary ---
Author Organization [employer] Address [address] [facility] 7t [place] [address] Care Team Providers Care Supervisor Lathing Name Role Phone Rubi Osuna MD Primary Care Provider [phone] Reason for Visit * Reason Comments Med Refill Encounter Details Date Type Department Care Team (Late st Contact Info) Description 01/28/2023 Refill [facility] MED & PEDS [address] [place] [address] Riana Zimmer MD [address] [place] [address] Social History Tobacco Use Types Packs/Day Years [...] 9:55 AM EDT Pharmacy should send to [facility] practice Not seen here Please call [phone] documented in this encounter Plan of Treatment Upcoming Encounters Date Type Department Care Team (Late st Contact Info) Description 02/07/2025 2:00 PM EDT Office Visit [facility] ADULT DENT[facility] [address] [place] [address] Devin Wilcox documented as of this encounter Visit Diagnoses Not on filedocumented in this encounter Care Teams Supervisor Lathing Relationship Specialty Start Date End Date Rubi Osuna MD [address] [place] [address] PCP - General Family Medicine 11/17/13 documented as of this encounter
--- OUTSIDE RECORDS SUMMARY | 2025-01-24 09:21 | XMS_ITS | Encounter Summary ---
Author Organization [employer] Address [address] [facility] 7t [place] [address] Care Team Providers Care Booking Agent Name Role Phone Rubi Osuna MD Primary Care Provider [phone] Reason for Visit * Reason Comments Med Refill Encounter Details Date Type Department Care Team (Late st Contact Info) Description 02/04/2023 Refill [facility] MED & PEDS [address] [place] [address] Riana Zimmer MD [address] [place] [address] Social History Tobacco Use Types Packs/Day Years [...] 2:00 PM EDT Office Visit [facility] ADULT DENTAL [address] [place] [address] Devin Wilcox documented as of this encounter Visit Diagnoses Not on filedocumented in this encounter Care Teams Booking Agent Relationship Specialty Start Date End Date Rubi Osuna MD [address] [place] [address] PCP - General Family Medicine 11/17/13 documented as of this encounter
--- OUTSIDE RECORDS SUMMARY | 2025-01-24 09:21 | XMS_ITS | Data Portability ---
Author Organization [place] [facility] Address [address] [address] Care Team Providers Care Linking Machine Operator Name Role Phone [facility] Primary Care Provider [phone] Assessment Encounter Date Assessment Date Assessment LastModified [...] Address Organization Details Recorded Time Allergic rhinitis 96442960 Active 2017 Other allergic rhinitis; Note: Date Diagnosed : 8 9:31 AM (J30.89) Not Available [facility] 4 03:20:41 Dysphonia 64997343 Active 2017 Hoarsenes s; Note: Date Diagnosed : 8 9:13 AM (R49.0) Not Available [facility] 4 03:20:40 Polyp of vocal cord or larynx 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 Active 2022 Polyp of vocal cord and larynx; Note: Date Diagnosed : 09/22/2023 4:26 PM (J38.1) ERICK TERRY MD [address] [place] [address], [place], [address] , [place] [facility] 4 15:06:01 Tobacco user 094041113 Active 2017 Tobacco use; Note: Date Diagnosed : 8 9:14 AM (Z72.0) Not Available [facility] 4 03:20:41 Stomatiti s 99757988 Active 2023 Oral thrush; Note: Date Diagnosed : 01/20/2024 11:27 AM (B37.0) Not Available [facility] 03:20:40 Candidias is of mouth 44860927 Active 2023 Oral thrush; Note: Date Diagnosed : 01/20/2024 11:27 AM (B37.0) Not Available [facility] 03:20:40 Tobacco dependenc e caused by cigarette s 22107559526 452730 Active 2023 ERICK TERRY MD [address] [facility],[place] [address], [place], [address] , [place] [facility] 10:00:32 Problem Notes None recorded. Procedures Surgical History Date Name Laterality Status Provider Name and Address Organization Details Recorded Time 11/29/2024 FOL_DP completed ERICK TERRY MD [address] [place] [address],[place] [address], [place], [address], [facility] - [facility] 11/28/2024 17:01:02 05/25/2024 FOL_DP completed ERICK TERRY MD [address] [facility],[place] [address], [place], [address], [place] [facility] 05/25/2024 09:57:21 Imaging Results Imaging Date Name [...] mg tablet 09/22 completed Medicati on ID: [id number] D uration Value: 30 Brand Name: predniso ne Send Method: E-Prescr ibed Sub s Allowed: subs OK Medic ationGen ericName : predniso ne Not Available Not Available Not Available cyanocoba meño (vit B-12) 500 mcg tablet active Not Available Not Available Not Available methotrex ate sodium 2.5 mg tablet 09/22 completed Medicati on ID: [id number] D uration Value: 28 Brand Name: methotre xate sodium S end Method: E-Prescr ibed Sub s Allowed: subs OK Medic ationGen ericName : methotre xate sodium Not Available Not Available Not Available IBU 600 mg tablet 09/22 completed Medicati on ID: [id number] D uration Value: 10 Brand Name: IBU [...] layed release 11/29 completed Medicati on ID: [id number] B rand Name: bisacody l Send Method: [...] spray,royce pension 09/22 completed Medicati on ID: [id number] D uration Value: 30 Brand Name: fluticas one propiona te Send Method: E-Prescr ibed Sub s Allowed: subs OK Medic ationGen ericName : fluticas one propiona te Not Available Not Available Not Available loratadin e 10 mg tablet active Medicati on ID: [id number] B rand Name: loratadi ne Send Method: [...] Updated DateTime 05/25/2024 162.56 cm 20.1 kg/m2 91320.31 g Aurora Avila [place] - [facility] 05/25/2024 09:50:28 Date Recorded Body height Body mass index (BMI) Body weight Provider Name and Address Organization Details Last Updated DateTime 11/29/2024 162.56 cm 20.8 kg/m2 41790.68 g Brandi Severinokati [place] - [facility] 11/29/2024 09:19:04 Social History None recorded. Functional Status None recorded. Mental Status None recorded. Family History Nothing Reported. Medical History No medical history recorded. Gynecological HistoryNo gynecological history recorded. Obstetrics History GPAL:G 0 P 0 0 0 0 Past Encounters Encounter ID Performer Location Encounter Start Date Encounter Closed Date Diagnosis/Indication Diagnosis SNOMED-CT Code Diagnosis ICD10 Code Diagnosis Note [id number] ERICK TERRY MD [facility] [address] [address] 05/25/2024 09:41:35 05/25/2024 10:00:21 Polyp of vocal cord or larynx 925704243 J38.1 Tobacco de pendence caused by cigarettes 4888297999 9327942 F17.210 [id number] ERICK TERRY MD [facility] [address] [address] 11/29/2024 09:09:07 11/29/2024 09:31:15 Polyp of vocal cord or larynx 232146420 J38.1 Tobacco de pendence caused by cigarettes 8096792820 4451058 F17.210 Health Concerns Section Related Observation LastModified by Organization Detai ls LastModified Time None Recorded Concern Status LastModified by Organization Details LastModified Time None Recorded Advance Directives Directive None Recorded Payers Encounter Date Sequence Insurance Name Policy Number Policy Nguyen Covered Member ID Nguyen Member ID Guarantor Name 05/25/2024 1 [employer] [facility] [id number] Oc Saucedo [id number] Seng Saucedo 11/29/2024 1 [employer] [facility] [id number] Oc Saucedo [id number] Seng Saucedo Notes Date Note Type [...] 5 cig daily ERICK TERRY MD [address] [facility],[address], [address], [place] - [facility] 05/25/2024 10:00:57 11/29/2024 text/html Bilateral renke edema11/08/23 [...] smoking cessation recommended ERICK TERRY MD [address] [facility],[place] [address], [place], [address], [place] [facility] 11/29/2024 09:31:54 OBGyn Episode No OBEpisode recorded.
--- OUTSIDE RECORDS SUMMARY | 2025-01-24 09:22 | XMS_ITS | Clinical Summary ---
Author Organization [employer] Address [address] [facility] [address] [place] [address] Care Team Providers Care Area Director Name Role Phone Rubi Osuna MD Primary Care Provider [phone] Allergies No known active allergies Medications Fluticasone Propionate, Inhal, 100 MCG/ACT aerosol powder 2 times daily. Active albuterol (5 MG/ML) 0.5% nebulizer solution as directed Active Calcium 600+D3 600-20 MG-MCG tablet Take 1 tablet by mouth in the morning. 04/23/20 23 Active Prolia 60 MG/ML solution prefilled syringe 03/26/20 23 Active entecavir (Baraclude) 0.5 MG tablet daily. Active Fluticasone-Um eclidin-Vilant (Trelegy Ellipta) 100-62.5-25 MCG/ACT aerosol powder daily. 04/15/20 22 Active Trelegy Ellipta 100-62.5-25 MCG/ACT aerosol powder INHALE 1 PUFF BY MOUTH AT THE SAME TIME EVERY DAY 03/13/20 23 Active ibuprofen 800 MG tablet 3 times a day. 12/01/19 22 Active loratadine (Claritin) 10 MG tablet daily. Active omeprazole (PriLOSEC) [address] capsule daily. 05/25/20 22 Active pantoprazole (ProtoNix) 40 MG EC tablet Take 40 mg by mouth in the morning. 04/26/20 23 Active folic acid (Folvite) 1 MG tablet TAKE 1 TABLET(1000 MCG) BY MOUTH IN THE MORNING 90 tablet 1 09/07/20 23 Active thiamine (,Vitamin B-1,) 100 MG tabletIndicati ons:Vitamin deficiency TAKE 1 TABLET BY MOUTH EACH MORNING 90 tablet 3 02/29/20 24 Active cyanocobalamin (Vitamin B-12) 500 MCG tabletIndicati ons:Vitamin deficiency TAKE 1 TABLET(500 MCG) BY MOUTH IN THE MORNING 90 tablet 3 02/29/20 24 Active prazosin (Minipress) 1 MG capsule TAKE 1 CAPSULE(1 MG) BY MOUTH AT BEDTIME 30 capsule 11 08/24/20 24 Active sertraline (Zoloft) 25 MG tablet TAKE 1 TABLET BY MOUTH EVERY DAY 30 tablet 1 08/24/20 24 Active Fluticasone-Um eclidin-Vilant (Trelegy Ellipta) 100-62.5-25 MCG/ACT aerosol powder INHALE 1 PUFF BY MOUTH AT THE SAME TIME EVERY DAY 60 each 3 08/24/20 24 Active albuterol 108 (90 Base) MCG/ACT inhaler Inhale 2 puffs every 6 (six) hours if needed for wheezing. 18 g 01/06/20 25 Active albuterol 108 (90 Base) MCG/ACT inhaler Inhale 2 puffs every 6 (six) hours if needed for wheezing. 18 g 12/15/19 25 025 Discontinued(Re order (will not trigger notification to Pharmacy)) Active Problems Problem Noted Date Diagnosed Date Colonoscopy refused 05/18/2023 Dysphagia 05/18/2023 Gastroesophageal reflux disease without esophagi tis 05/18/2023 Chronic obstructive lung disease 10/16/2021 Hoarse 10/16/2021 Rheumatoid arthritis 10/16/2021 Alcohol abuse 07/30/2014 Tobacco dependence syndrome 07/30/2014 Encounters Date Type Department Care Team Description 01/05/2025 Refill [facility] MEDICINE [address] [place] [address] Rubi Osuna MD 01/02/2025 Refill [facility] [address] [place] [address] Rubi Osuna MD 12/15/2024 Refill [facility] [address] [place] [address] Rubi Osuna MD 12/12/2024 Orders Only GENERIC EXTERNAL DATA DEPARTMENT Provider, Generic External Data 12/11/2024 Refill [facility] MED & PEDS [address] [place] [address] Rubi Osuna MD 11/07/2024 Refill [facility] [address] [place] [address] Rubi Osuna MD 11/06/2024 Refill [facility] MEDICINE [address] [place] [address] Khushi Epperson MD from Last 3 Months Immunizations Name [...] the past 12 months, has t he [employer], oil or water company threatened to [...] [facility] ADULT D[facility]AL [address] [place] [address] Devin Wilcox Health Maintenance Due Date Last [...] Additional history exists Dental X-Ray: [facility] 01/16/2022 01/16/20, 07/13/2018, 10/23/2014, Additional history exists Depression Screening 05/26/2024 05/26/2023, 05/26/20 SDOH Screening 05/26/2024 05/26/2023 COVID-19 Vaccine ( [...] Procedure Name Priority Date/Time Associated Diagnosis Comments VITAMIN D 25-OH (D2 AND D3) Routine 12/12/2024 9:28 AM EST BASIC METABOLIC PANEL Routine 12/12/2024 9:28 AM EST BI MAMMOGRAM SCREENING TOMOSYNTHESIS BILATERAL Routine [...] Recently Relevant to Health Maintenance Results * VITAMIN D 25-OH (D2 AND D3) (12/12/2024 9:28 AM EST) Vitamin D, 25-OH, D2 <4 ng/mL [facility] Comment:This test was develo ped and its analytical performancecharacteristics have been determined by [employer] [place], [place]. It hasnot been cleared or approved by the U.S. Food and DrugAdministration. This assay has been validated pursuantto the CLIA regulations and is used for clinicalpurposes.THIS TEST WAS PERFORMED AT:[employer] [id number] [place] [address]ZPVCUDMRONNIE JACOB MD,PHD Vitamin D, 25-OH, D3 33 ng/mL [facility] Comment:This test was develo ped and its analytical performancecharacteristics have been determined by [employer] [place], [place]. It hasnot been cleared or approved by the U.S. Food and DrugAdministration. This assay has been validated pursuantto the CLIA regulations and is used for clinicalpurposes. Vitamin D, 25-OH, Total 33 30 - 100 ng/mL [facility] Comment:Vitamin D, 25-Hydrox y reports concentrations of twocommon forms, 25-OHD2 and 25-OHD3. 25-OHD3 indicatesboth endogenous production and supplementation.25-OHD2 is an indicator of exogenous sources such asdiet or supplementation. Therapy is based onmeasurement of Total 25-OHD, with levels <20 ng/mLindicative of Vitamin D deficiency, while levelsbetween 20 ng/mL and 30 ng/mL suggest insufficiency.Optimal levels are > or = 30 ng/mL.For additional information, please refer [email or web address](This link is being provided for informational/educational purposes only.) 12/12/2024 9:28 AM EST 12/12/2024 9:28 AM EST Generic External Data Provider LAB BLOOD ORDERAB LES Final Result Performing Organization Address [facility] de Phone Number [facility] [address] [place] [phone] * (ABNORMAL) Basic Metabolic Panel (12/12/2024 9:28 AM EST) Sodium 141 135 - 145 mmol/L [facility] Potassium 4.2 3.3 - 5.1 mmol/L [facility] Chloride 103 96 - 108 mmol/L [facility] Carbon Dioxide 28 22 - 29 mmol/L [facility] Anion Gap 14 12 - 20 [facility] Urea Nitrogen (BUN) 27(H) 9 - 16 mg/dL [facility] Creatinine, Serum 1.00 0.5 - 1.4 mg/dL [facility] Estimated Glomerular Filt Rate 56 [facility] Comment:Chronic Kidney Disea se: Estimated GFR < 60 mL/min/1.01z9Mgxhlj Kidney Disease: Estimated GFR < 15 mL/min/1.73m2 Glucose 103 60 - 115 mg/dL [facility] Calcium 10.0 8.4 - 10.2 mg/dL [facility] 12/12/2024 9:28 AM EST 12/12/2024 9:28 AM EST Generic External Data Provider LAB BLOOD ORDERAB LES Final Result Performing Organization Address [facility] Co de Phone Number [facility] [address] [place] [phone] * BI Mammogram Screening Tomosynthesis Bilateral (07/08/2024 8:00 AM EDT) Anatomical Region Laterality Modality Breast Bilateral Mammography 07/08/2024 8:00 AM EDT Narrative 07/20/2024 8:57 AM EDT ? [facility] ? [address] ?[place] [address] ? Mammography Report ? Signed ? Patient: Czausz,Cheryllann ?MR#: [id number] ?? [id number] ? : 1960 ?Acct:[id number] ? Age/Sex: 63 / F ?ADM Date: 07/08/24 ? Loc: HO.MAMMO ? Attending Dr: Rubi Osuna MD ? Ordering Physician: Rubi Osuna MD ?Results: 1Negati ?? ve ? Date of Service: 07/08/24 ?Follow Up: 1 Year From Orig ?? inal Mammogram ? Procedure(s): MM tomosynthesis screening BI ?? Accession Number(s): [id number] ? cc: Rubi Osuna MD ? EXAMINATION: [...] ??Lilia Caceres DO ??07/20/2024 08:55 AM EDT ?? RP ? Dictated By: ?Lilia Caceres DO ? Signed By: ?<Electronically signed by Lilia Caceres, DO in OV> ? 07/20/24 0855 ? DD/ 0800 ? TD/TT: 07/08/24 0815 ? Small Machine Bindery Operator: ? Procedure Note Shai, Image - [facility] [address] [place] [address] Mammography Report Signed Patient: Seng LynneMR#: [id number] : 9Acct:[id number] Age/Sex: 63 / FADM Date: 07/08/24 Loc: HO.MAMMO Attending Dr: Rubi Osuna MD Ordering Physician: Rubi Osuna MDResults: 1Negati ve Date of Service: 07/08/24Follow Up: 1 Year From Orig inal Mammogram Procedure(s): MM tomosynthesis screening BI Accession Number(s): [id number] cc: Rubi Osuna MD EXAMINATION: MM SCREENING [...] Caceres DO 07/20/2024 08:55 AM EDT RP Workstation: [employer] Dictated By: Lilia Caceres DO Signed By: <Electronically signed by Lilia Caceres DO in OV> 07/20/24 0855 DD/ 0800 TD/TT: 07/08/24 0815 Small Machine Bindery Operator: us Rubi Osuna MD IMG BI PROCEDURES Edited Result - Final * Hepatitis C Ab (06/06/2024 11:58 AM EDT) Hepatitis C Antibody Nonreactive Nonreactive [facility] Comment:Antibodies to HCV no t detected; does not exclude early acuteHCV infection. 06/06/2024 11:5 8 AM EDT 06/06/2024 12:03 PM EDT us Generic External Data Provider LAB BLOOD ORDERAB LES Final Result [facility] [address] [place] [phone] from Last 3 Months or Most Recently Relevant to Health Maintenance Insurance [employer] * Guarantor: Seng Lynne Account Type Relation to Patient Date of Phone Billing Address Personal/Family Self [address] [place] Care Teams Area Director Relationship Specialty Start Date End Date Rubi Osuna MD [address] [place] [phone] PCP - General Family Medicine 11/17/13
== END 2025-01-24 08:55 | disposition home or self-care (01) ==
LOC: HO.MAMMO 08:54
PROVIDERS: PCP Student in an Organized Health Care Education/Training Program; Visit Provider Student in an Organized Health Care Education/Training Program
DX: M81.0 Age-related osteoporosis without current pathological fracture (principal)
CPT/HCPCS: 77080

== ENCOUNTER → 2025-01-24 09:15 | Outpatient (BNV) | payer OTHER, SELFPAY | PROVIDERS: PCP Student in an Organized Health Care Education/Training Program; Visit Provider Radiology Diagnostic Radiology | DX: E28.39 Other primary ovarian failure (principal) | CPT/HCPCS: 77080 ==

== ENCOUNTER 2025-06-14 12:36 | Outpatient (AMB) | payer OTHER, SELFPAY ==
--- OUTSIDE RECORDS SUMMARY | 2025-06-14 13:17 | XMS_ITS | Encounter Summary ---
Author Organization [employer] Address [address] [facility] 7t [place] [address] Care Team Providers Care Brand Sales Consultant Name Role Phone Rubi Osuna MD Primary Care Provider [phone] Chris Rodriguez CNP Primary Care Provider [phone] Encounter Details Date Type Department Care Team (Late st Contact Info) Description 08/28/2024 Orders Only [facility] [address] [place], [place] [phone] Provider, MD Karina Social History Tobacco Use [...] documented in this encounter Plan of Treatment Not on file documented as of this encounter Procedures Procedure Name Priority Date/Time Associated Diagnosis Comments LUNG CANCER SCREENING Routine 08/28/2024 11:44 AM EST documented in this encounter Results * Hm Lung Cancer Screning (08/28/2024 11:44 AM EST) Anatomical Region Laterality Modality Other Historical Provider HEALTH MAINTENANCE Final Result documented in this encounter Visit Diagnoses Not on filedocumented in this encounter Additional Health Concerns Assessment Noted Time PHQ-9 Depression Total Score: 1 05/26/20 23 10:03 AM EDT documented as of this encounter Care Teams Brand Sales Consultant Relationship Specialty Start Date End Date Rubi Osuna MD [address] [place] [address] PCP - General Family Medicine 11/17/13 05/24/25 Chris Rodriguez CNP [address] [place] [address] PCP - General Family Medicine 05/25/25 documented as of this encounter
--- OUTSIDE RECORDS SUMMARY | 2025-06-14 13:17 | XMS_ITS | Encounter Summary ---
Author Organization [employer] Address [address] [facility] 7t [place] [address] Care Team Providers Care Meat Specialist Name Role Phone Rubi Osuna MD Primary Care Provider [phone] Chris Rodriguez CNP Primary Care Provider [phone] Reason for Visit * Reason Comments Med Refill Encounter Details Date Type Department Care Team ([facility] st Contact Info) Description 12/11/2024 Refill [facility] MED & PEDS [address] [place], [place] [phone] Rubi Osuna MD [address] [place] [address] Social History Tobacco Use Types Packs/Day Years [...] as of this encounter Plan of Treatment Not on file documented as of this encounter Visit Diagnoses Not on filedocumented in this encounter Additional Health Concerns Assessment Noted Time PHQ-9 Depression Total Score: 1 05/26/20 23 10:03 AM EDT documented as of this encounter Care Teams Meat Specialist Relationship Specialty Start Date End Date Rubi Osuna MD [address] [place] [address] PCP - General Family Medicine 11/17/13 05/24/25 Chris Rodriguez CNP [address] [place] [address] PCP - General Family Medicine 05/25/25 documented as of this encounter
--- OUTSIDE RECORDS SUMMARY | 2025-06-14 13:17 | XMS_ITS | Encounter Summary ---
Author Organization [employer] Address [address] [facility] 7t [place] [address] Care Team Providers Care Digital Sales Assistant Name Role Phone Rubi Osuna MD Primary Care Provider [phone] Chris Rodriguez CNP Primary Care Provider [phone] Reason for Visit * Reason Comments Med Refill Encounter Details Date Type Department Care Team ([facility] st Contact Info) Description 01/28/2023 Refill [facility] MED & PEDS [address] [place], [place] [phone] Riana Zimmer MD [address] [place] [address] Social History Tobacco Use Types Packs/Day Years [...] 9:55 AM EDT Pharmacy should send to [facility] practice Not seen here Please call [phone] documented in this encounter Plan of Treatment Not on file documented as of this encounter Visit Diagnoses Not on filedocumented in this encounter Care Teams Digital Sales Assistant Relationship Specialty Start Date End Date Rubi Osuna MD [address] [place] [address] PCP - General Family Medicine 11/17/13 05/24/25 Chris Rodriguez CNP [address] [place] [address] JESI ACOSTA [address] PCP - General Family Medicine 05/25/25 documented as of this encounter
--- OUTSIDE RECORDS SUMMARY | 2025-06-14 13:17 | XMS_ITS | Patient Health Record ---
Author Organization [facility] Address [address] [place] [address] Care Team Providers Care Wire Straightening Machine Operator Name Role Phone KAITLINDEANGELO Primary Care [...] per day. 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 Problems Problem Type SNOMED Code ICD Code Onset Dates Problem Status W/U Status Risk Notes Problem Dysphagia (99247669) Dysphagia (R13.10) Active confirmed Problem 800011544 Gastroesophageal reflux disease without esophagitis (K21.9) Active confirmed Problem 74603433 Dysphagia, unspecified type (R13.10) Active confirmed Problem 501051373360280 Colonoscopy refu sed (Z53.20) Active confirmed Plan Of Treatment Future Test Test Name Order Date UPPER GI ENDOSCOPY 05/13/2022 Insurance Providers Payer Name Payer Address Payer Phone Subscriber Number Group Number Insured Name Patient Relationship to Insured Coverage Start Date Coverage End Date [employer] [place] [address] [address] [place] [address] [id number] ARJUN LYNNE Self - patient is the insured Medical (General) History Medical History History ICD Code rheumatoid arthritis osteoporosis COPD LINO Substance abuse with cocaine, currently in remission Chronic hepatitis B Pulmonary nodule Alcohol abuse Surgical History Surgery Date(Month/Year)
--- OUTSIDE RECORDS SUMMARY | 2025-06-14 13:17 | XMS_ITS | Encounter Summary ---
Author Organization [employer] Address [address] [place] [address] Care Team Providers Care Iron And Steel Work Supervisor Name Role Phone Rubi Osuna MD Primary Care Provider [phone] Chris Rodriguez CNP Primary Care Provider [phone] Reason for Visit * Reason Onset Date Comments insurance inactive? 08/10/2024 Encounter Details Date Type Department Care Team (Late st Contact Info) Description 08/10/2024 Telephone C [facility] [address] [place], [place] [phone] Devin Wilcox insurance inactive? Social History Tobacco [...] but states that the insurance is active. [facility] waterfront director [facility] will contact Dental [facility] to verify [...] documented as of this encounter Care Teams Iron And Steel Work Supervisor Relationship Specialty Start Date End Date Rubi Osuna MD [address] [place] [address] PCP - General Family Medicine 11/17/13 05/24/25 Chris Rodriguez CNP [address] [place] [address] PCP - General Family Medicine 05/25/25 documented as of this encounter
--- OUTSIDE RECORDS SUMMARY | 2025-06-14 13:17 | XMS_ITS | Encounter Summary ---
Author Organization [employer] Address [address] [facility] 7t [place] [address] Care Team Providers Care Fundraising Specialist Name Role Phone Rubi Osuna MD Primary Care Provider [phone] Chris Rodriguez CNP Primary Care Provider [phone] Encounter Details Date Type Department Care Team (Latest Contact Info) Description 02/06/2019 Abstract [facility] CONVERSIONS Dental, Provider, DDS Social [...] on filedocumented in this encounter Care Teams Fundraising Specialist Relationship Specialty Start Date End Date Rubi Osuna MD [address] [place] [address] PCP - General Family Medicine 11/17/13 05/24/25 Chris Rodriguez CNP [address] [place], [place] [phone] PCP - General Family Medicine 05/25/25 documented as of this encounter
--- OUTSIDE RECORDS SUMMARY | 2025-06-14 13:17 | XMS_ITS | Encounter Summary ---
Author Organization [employer] Address [address] [facility] 7t [place] [address] Care Team Providers Care Tour Production Supervisor Name Role Phone Rubi Osuna MD Primary Care Provider [phone] Chris Rodriguez CNP Primary Care Provider [phone] Encounter Details Date Type Department Care Team (Latest Contact Info) Description 01/15/2021 Abstract [facility] CONVERSIONS Dental, Provider, DDS Social History Tobacco [...] on filedocumented in this encounter Care Teams Tour Production Supervisor Relationship Specialty Start Date End Date Rubi Osuna MD [address] [place] [address] PCP - General Family Medicine 11/17/13 05/24/25 Chris Rodriguez CNP [address] [place], [place] [phone] PCP - General Family Medicine 05/25/25 documented as of this encounter
--- OUTSIDE RECORDS SUMMARY | 2025-06-14 13:17 | XMS_ITS | Encounter Summary ---
Author Organization [employer] Address [address] [facility] [address] [place] [address] Care Team Providers Care Overlock Elastic Attacher Name Role Phone Rubi Osuna MD Primary Care Provider [phone] Chris Rodriguez CNP Primary Care Provider [phone] Reason for Visit * Reason Onset Date Comments insurance 05/02/2024 Encounter Details Date Type Department Care Team (Late st Contact Info) Description 05/02/2024 Telephone C [facility] [address] [place], [place] [phone] Devin Wilcox insurance Social History Tobacco Use [...] * Telephone Encounter - Becca Rubio - 05/02/2024 9:54 AM EDT Patient has [...] documented as of this encounter Care Teams Overlock Elastic Attacher Relationship Specialty Start Date End Date Rubi Osuna MD [address] [place] [address] PCP - General Family Medicine 11/17/13 05/24/25 Chris Rodriguez CNP [address] [place] [address] PCP - General Family Medicine 05/25/25 documented as of this encounter
--- OUTSIDE RECORDS SUMMARY | 2025-06-14 13:17 | XMS_ITS | Encounter Summary ---
Author Organization [employer] Address [address] [facility] 7t [place] [address] Care Team Providers Care Oil Lease Buyer Name Role Phone Rubi Osuna MD Primary Care Provider [phone] Chris Rodriguez CNP Primary Care Provider [phone] Reason for Visit * Reason Comments Med Refill Encounter Details Date Type Department Care Team ([facility] st Contact Info) Description 01/02/2025 Refill [facility] MEDICINE [address] [place] [address] Rubi Osuna MD [address] [place], [place] [phone] Social History Tobacco Use Types Packs/Day Years [...] documented as of this encounter Care Teams Oil Lease Buyer Relationship Specialty Start Date End Date Rubi Osuna MD [address] [place] [address] PCP - General Family Medicine 11/17/13 05/24/25 Chris Rodriguez CNP [address] [place] [address] PCP - General Family Medicine 05/25/25 documented as of this encounter
--- OUTSIDE RECORDS SUMMARY | 2025-06-14 13:18 | XMS_ITS | Encounter Summary ---
Author Organization [employer] Address [address] [place] [address] 7 [place] [address] Care Team Providers Care Editor Dictionary Name Role Phone Rubi Osuna MD Primary Care Provider [phone] Chris Rodriguez CNP Primary Care Provider [phone] Reason for Visit * Reason Comments Med Refill Encounter Details Date Type Department Care Team ([facility] st Contact Info) Description 02/04/2023 Refill [facility] MED & PEDS [address] [place], [place] [phone] Riana Zimmer MD [address] [place], [place] [phone] Social History Tobacco Use Types Packs/Day Years [...] on filedocumented in this encounter Care Teams Editor Dictionary Relationship Specialty Start Date End Date Rubi Osuna MD [address] [place], [place] [phone] PCP - General Family Medicine 11/17/13 05/24/25 Chris Rodriguez CNP [address] [place], [place] [phone] PCP - General Family Medicine 05/25/25 documented as of this encounter
--- OUTSIDE RECORDS SUMMARY | 2025-06-14 13:18 | XMS_ITS | Clinical Summary ---
Author Organization [employer] Address [address] [facility] 7t [place] [address] Care Team Providers Care Food And Beverage Manager Name Role Phone Chris Rodriguez BOAT PILOT Primary Care Provider [phone] Allergies No known active allergies Medications Fluticasone Propionate, Inhal, 100 MCG/ACT aerosol powder 2 times daily. Activ e albuterol (5 MG/ML) 0.5% nebulizer solution as directed Active Calcium 600+D3 600-20 MG-MCG tablet Take 1 tablet by mouth in the morning. 04/23/20 23 Active Prolia 60 MG/ML solution prefilled syringe 03/26/20 23 Active entecavir (Baraclude) 0.5 MG tablet daily. Active Fluticasone-U meclidin-Ronald nt (Trelegy Ellipta) 100-62.5-25 MCG/ACT aerosol powder daily. [...] mouth in the morning. 04/26/20 23 Active prazosin (Minipress) 1 MG capsule TAKE 1 CAPSULE(1 MG) BY MOUTH AT BEDTIME 30 capsule 11 08/24/20 24 Active Fluticasone-U meclidin-Ronald nt (Trelegy Ellipta) 100-62.5-25 MCG/ACT aerosol powder INHALE 1 PUFF BY MOUTH AT THE SAME TIME EVERY DAY 60 each 3 08/24/20 24 Active albuterol 108 (90 Base) MCG/ACT inhaler INHALE 2 PUFFS BY MOUTH EVERY 6 HOURS NEEDED FOR WHEEZING 18 g 05/21/20 25 Active cyanocobalami n (Vitamin B-12) 500 MCG tabletIndicat ions:Vitamin deficiency TAKE 1 TABLET(500 MCG) BY MOUTH IN THE MORNING 90 tablet 05/21/20 25 Active thiamine (,Vitamin B-1,) 100 MG tabletIndicat ions:Vitamin deficiency TAKE 1 TABLET BY MOUTH EACH MORNING 90 tablet 05/21/20 25 Active sertraline (Zoloft) 25 MG tablet TAKE 1 TABLET BY MOUTH EVERY DAY 30 tablet 05/21/20 25 Active folic acid (Folvite) 1 MG tablet TAKE 1 TABLET(1000 MCG) BY MOUTH IN THE MORNINGTAKE 1 TABLET(1000 MCG) BY MOUTH IN THE MORNING 90 tablet 05/21/20 25 Active folic acid (Folvite) 1 MG tablet TAKE 1 TABLET(1000 MCG) BY MOUTH IN THE MORNING 90 tablet 1 09/07/20 23 025 Discontinued(Re order (will not trigger notification to Pharmacy)) thiamine (,Vitamin B-1,) 100 MG tabletIndicat ions:Vitamin deficiency TAKE 1 TABLET BY MOUTH EACH MORNING 90 tablet 3 02/29/20 24 025 Discontinued cyanocobalami n (Vitamin B-12) 500 MCG tabletIndicat ions:Vitamin deficiency TAKE 1 TABLET(500 MCG) BY MOUTH IN THE MORNING 90 tablet 3 02/29/20 24 025 Discontinued sertraline (Zoloft) 25 MG tablet TAKE 1 TABLET BY MOUTH EVERY DAY 30 tablet 1 08/24/20 24 025 Discontinued albuterol 108 (90 Base) MCG/ACT inhaler INHALE 2 PUFFS BY MOUTH EVERY 6 HOURS NEEDED FOR WHEEZING 18 g 03/19/20 25 025 Discontinued Active Problems Problem Noted Date Diagnosed Date Colonoscopy refused 05/18/2023 Dysphagia 05/18/2023 Gastroesophageal reflux disease without esophagi tis 05/18/2023 Chronic obstructive lung disease 10/16/2021 Hoarse 10/16/2021 Rheumatoid arthritis 10/16/2021 Alcohol abuse 07/30/2014 Tobacco dependence syndrome 07/30/2014 Encounters Date Type Department Care Team Description 05/19/2025 Refill [facility] MEDICINE [address] [place] [address] Khushi Epperson MD 05/19/2025 Refill [facility] MEDICINE [address] [place], [place] [phone] Rubi Osuna MD Vitamin deficiency 05/17/2025 Telephone [facility] ADULT DENTAL [address] [place], [place] [phone] Brenna Balderas DDS 04/10/2025 Telephone [facility] ADULT D[facility]AL [address] [place], [place] [phone] Devin Wilcox 03/16/2025 Refill [facility] MEDICINE [address] [place], [place] [phone] Rubi Osuna MD from Last 3 Months Immunizations Immunization Administration Dates Next Due Influenza, IIV3, injectable 09/09/2021, 4,08/14/2010 Influenza, Split (incl. isabelle fied surface antigen) 08/04/2013 Social History Tobacco Use Types Packs/Day Years Used Date Smoking Tobacco: Some Days Cigarettes Tobacco Cessation:Ready to Q uit: Not Asked; Counseling Given: Not Answered Alcohol Use Standard Drinks/Week [...] Sign Reading Time Taken Comments Blood Pressure 134/72 02/07/2025 2:00 PM EDT Pulse 66 02/07/2025 2:00 PM EDT Temperature 36.9 C (98.5 F) 05/26/2023 10:02 AM EDT Respiratory Rate 18 05/26/2023 10:02 AM EDT Oxygen Saturation 99% 05/26/2023 10:02 AM EDT Inhaled Oxygen Concentration - - Weight 52.6 kg (116 lb) 05/26/2023 10:02 AM EDT Height 165.1 cm (5' 5 ) 05/26/2023 10:02 AM EDT Body Mass Index 19.3 05/26/2023 10:02 AM EDT Plan of Treatment Health Maintenance Due Date Last Done Comments [...] - Risk 60-74 years 1-dose series) 2019 Depression Screening 05/26/2024 05/26/2023, 05/26/20 SDOH Screening 05/26/2024 05/26/2023 COVID-19 Vaccine ( season) 2024 07/10/2023, 01/31/2021, 01/03/2021 Influenza Vaccine (#1) 2025 , 07/30/2014, 08/04/2013, Additional history exists Mammogram 07/08/2025 07/08/2024, 06/18, 07/06/2023 Dental Oral Exam 08/10/2025 02/07/2025, , 08/16/2018, Additional history exists Dental Prophylaxis 08/10/2025 02/07/2025, 0 01/15/2021, 01/02/2016, Additional history exists Tobacco Screening 02/07/2026 02/07/2025 Dental X-Ray: Bitewings 02/08/2026 02/08/20, 01/15/2021, 07/13/2018, Additional history exists Lipid Panel 11/10/2026 11/10/2021 Dental X-Ray: Full Mouth 02/09/2028 02/07/2025, 06/19 Hepatitis C Screening Completed 06/06/2024, 023 HIB Vaccines Aged Out No longer eligi ble based on patient's age to complete this topic HPV Vaccines Aged Out No longer eligi ble based on patient's age to complete this topic IPV Vaccines Aged Out No longer eligi ble based on patient's age to complete this topic Meningococcal B Vaccine Aged Out No l onger eligible based on patient's age to complete [...] Procedure Name Priority Date/Time Associated Diagnosis Comments Full PROPHYLAXIS - ADULT Routine 02/07/2025 2:00 PM EDT PANORAMIC RADIOGRAPHIC IMAGE Routine 02/07/2025 2:00 PM EDT BITEWINGS - 4 RADIOGRAPHIC IMAGES Routine 02/07/2025 2:00 PM EDT PERIODIC ORAL EVALUATION - ESTABLISHED PATIENT Routine 02/07/2025 2:00 PM EDT BI MAMMOGRAM SCREENING TOMOSYNTHESIS BILATERAL Routine 07/08/2024 8:00 AM EDT HEPATITIS C ANTIBODY Routine 06/06/2024 11:58 AM EDT LIPID PANEL, STANDARD Routine 11/10/2021 9:17 AM EST from Last 3 Months or Most Recently Relevant to Health Maintenance Results * BI Mammogram Screening Tomosynthesis Bilateral (07/08/2024 8:00 AM EDT) Anatomical Region Laterality Modality Breast Bilateral Mammography 07/08/2024 8:00 AM EDT Narrative 07/20/2024 8:57 AM EDT [facility] [address] [place] [address] Mammography Report Signed Patient: Seng Lynne MR#: [id number] : 1960 Acct:[id number] Age/Sex: 63 / F ADM Date: 07/08/24 Loc: HO.MAMMO Attending Dr: Rubi Osuna MD Ordering Physician: Rubi Osuna MD Results: 1Negati ve Date of Service: 07/08/24 Follow Up: 1 Year From Orig ina Mammogram Procedure(s): MM tomosynthesis screening BI Accession Number(s): [id number] cc: Rubi Osuna MD EXAMINATION: MM SCREENING [...] Lilia Caceres DO 07/20/2024 08:55 AM EDT Dictated By: Lilia Caceres DO Signed By: <Electronically signed by Lilia Caceres DO in OV> 07/20/24 0855 DD/ 0800 TD/TT: 07/08/24 0815 Distillery Manager: Procedure Note Donotuseinterpreter, Image - 07/20/2024 [facility] [address] [place] [address] Mammography Report Signed Patient: Sneg LynneMR#: [id number] : 9Acct:[id number] Age/Sex: 63 / FADM Date: 07/08/24 Loc: HO.MAMMO Attending Dr: Rubi Osuna MD Ordering Physician: Rubi Osuna MDResults: 1Negati ve Date of Service: 07/08/24Follow Up: 1 Year From Orig ina Mammogram Procedure(s): MM tomosynthesis screening BI Accession Number(s): [id number] cc: Rubi Osuna MD EXAMINATION: MM SCREENING [...] 07/20/24 0855 DD/ 0800 TD/TT: 07/08/24 0815 Distillery Manager: us Rubi Osuna MD IMG BI PROCEDURES Edited Result - Final * Hepatitis C Ab (06/06/2024 11:58 AM EDT) Pathologist [facility] Hepatitis C Antibody Nonreactive Nonreactive [facility] Comment:Antibodies to HCV no t detected; does not exclude early acuteHCV infection. 06/06/2024 11:5 8 AM EDT 06/06/2024 12:03 PM EDT us Generic External Data Provider LAB BLOOD ORDERAB LES Final Result Performing Organization Address City/State/[facility] Co de Phone Number [facility] [address] [place] [phone] * (ABNORMAL) LIPID PANEL, STANDARD (11/10/2021 9:17 AM EST) Pathologist [facility] Chol/HDLC Ratio 2.5 <5.0 (calc) [facility] Cholesterol, Total 248(H) <200 mg/dL [facility] HDL Cholesterol 98 > OR = 50 mg/dL [facility] LDL Cholesterol 131(H) mg/dL (calc) [facility] Comment: Reference range: <100 Desirable range <100 mg/dL for primary prevention; <70 mg/dL for patients with CHD or diabetic patients with > or = 2 CHD risk factors. LDL-C is now calculated using the Jose Martin-Lester calculation, which is a validated novel method providing better accuracy than the Friedewald equation in the estimation of LDL-C. Jose Martin KING et al. JYOTI. 2013;310(19): 7296-9112 (http://education.Search to Phone/faq/ABQ114) Non-HDL Cholesterol 150(H) <130 mg/dL (calc) [facility] Comment: For patients with diabetes plus 1 major ASCVD risk factor, treating to a non-HDL-C goal of <100 mg/dL (LDL-C of <70 mg/dL) is considered a therapeutic option. Triglycerides 88 <150 mg/dL [facility] 11/10/2021 9:17 AM EST us Luisa Rodgers MD LAB BLOOD ORDERABLES Final Re sult [facility] [address] from Last 3 Months or Most Recently Relevant to Health Maintenance Insurance Transit App [employer] [facility] [employer] [place] Care Teams Food And Beverage Manager Relationship Specialty Start Date End Date Chris Rodriguez CNP [address] [place] [address] [phone] PCP - General Family Medicine 05/25/25
--- NOTE | 2025-06-14 13:24 | AM.OFFVISNUR ---
Intake Visit Reasons: osteoporosis/prolia inj Allergies No Known Allergies Allergy (Verified 12/14/24 09:09) Office Meds Prolia 60 mg/mL subcutaneous syringe Performing Provider: Lidia Carbajal MD [place]forming [place] [facility] Administered by: Krystle Auguste RN on 06/14/25 13:24 Dose Route Admin Location Dispensed Lot Number Expiration Date NDC Electro Mechanical Technologist 60 mg subcut 1 mL [id number] 12/16/27 26059-070-50 [employer] Total Dispensed Waste 1 mL 0 % Comments: Seng Saucedo presents today for Prolia (Denosumab) 60 mg/mL injection for the treatment of osteoporosis. The patient has not had any recent fever or illness. The injection site to be used is without erythema, edema, and is clean, dry and intact. The patient tolerated the procedure well. No injection site reaction noted. Patient discharged from the practice in usual state of health Assessment & Plan Assessment & Plan Orders: Orders AMB Denosumab Injection Practice Supplied Today M81.0 - Age-related osteoporosis without current pathological fracture Coding
== END 2025-06-14 13:47 | disposition home or self-care (01) ==
LOC: HO.RHES 12:37
PROVIDERS: PCP Student in an Organized Health Care Education/Training Program; Visit Provider Student in an Organized Health Care Education/Training Program
DX: M81.0 Age-related osteoporosis without current pathological fracture (principal)

== ENCOUNTER 2025-06-14 12:36 | Outpatient (REF) | payer OTHER, SELFPAY ==
[2025-06-14 17:38] LABS: MANUAL DIFF FLAG NO
[2025-06-14 17:44] LABS: Hematocrit 45.6 % (37.0-47.0); Hemoglobin 15.2 g/dl (12.0-16.0); Imm Gran Abs Auto 0.02 X10*3/uL (0.00-0.03); Imm Gran Pct Auto 0.3 % (0.0-0.4); Lymphocytes Absolute Auto 2.7 X10*3/uL (1.2-4.9); Mean Corpuscular HGB Conc 33.3 g/dl (31.0-35.0); Mean Corpuscular Hemoglobin 32.5 pg (27.0-33.0); Mean Corpuscular Volume 97.6 fL (80.0-98.0); NRBC Abs Auto 0.000 X10*3/uL (0.0-0.012); NRBC Pct Auto 0.0 /100WBC (0.0-0.2); Platelet Count 275 X10*3/uL (160-400); Red Blood Count 4.67 X10*6/uL (4.20-5.50); White Blood Count 8.0 X10*3/uL (4.8-10.8)
[2025-06-14 18:01] LABS: Alanine Aminotransferase 21 U/L (0-31); Albumin Level 4.5 g/dL (3.5-5.0); Alkaline Phosphatase 46 U/L (39-117); Anion Gap 12 (12-20); Aspartate Amino Transferase 24 U/L (5-31); Blood Urea Nitrogen 18 mg/dL (9-16); Calcium 9.6 mg/dL (8.4-10.2); Carbon Dioxide 27 mmol/L (22-29); Chloride 104 mmol/L (96-108); Estimated Glomerular Filt Rate 52; Potassium 4.1 mmol/L (3.3-5.1); Sodium 139 mmol/L (135-145); Total Protein 7.1 g/dL (6.5-8.0)
== END 2025-06-14 12:37 | disposition home or self-care (01) ==
LOC: HO.HKASLDS 12:36
PROVIDERS: PCP Student in an Organized Health Care Education/Training Program; Visit Provider Student in an Organized Health Care Education/Training Program
DX: M81.0 Age-related osteoporosis without current pathological fracture (principal); E55.9 Vitamin D deficiency, unspecified
CPT/HCPCS: 36415; 80053; 82306; 85025; 96372; J0897

== ENCOUNTER 2025-09-22 10:12 | Outpatient (REF) | payer OTHER, SELFPAY ==
--- NOTE | ~2025-09-22 | MM_ITS ---
EXAMINATION: MM SCREENING DIGITAL BREAST TOMOSYNTHESIS, BILATERAL CLINICAL INFORMATION: Screening. Asymptomatic. COMPARISON: Mammography: Comparison is made with available priors TECHNIQUE: Digital breast mammography with tomosynthesis is performed in both the craniocaudal and mediolateral oblique views along with computer-aided detection (CAD). FINDINGS: The breasts are extremely dense, which lowers the sensitivity of mammography. There are no significant masses, abnormal calcifications, or other abnormalities. MM/MM tomosynthesis screening BI IMPRESSION: No mammographic evidence of malignancy. ASSESSMENT: BI-RADS Category 1: Negative RECOMMENDATION: Routine annual mammography screening. 1 year F/U This examination should not preclude the clinical evaluation of a suspicious palpable abnormality. This patient's information was entered into a reminder system with a target due date for their next mammogram. Electronically signed by: Lilia Caceres DO 09/24/2025 09:53 AM PILLO
--- OUTSIDE RECORDS SUMMARY | 2025-09-22 10:14 | XMS_ITS | Encounter Summary ---
Author Organization [employer] Address 75 [facility] 7t [place] [address] Care Team Providers Care Slot Machine Repairer Name Role Phone Rubi Osuna MD Primary Care Provider [phone] Chris Rodriguez CNP Primary Care Provider [phone] Encounter Details Date Type Department Care Team (Latest Contact Info) Description 01/15/2021 Abstract [facility] CONVERSION[facility] Dental, Provider, DDS Social History [...] on filedocumented in this encounter Care Teams Slot Machine Repairer Relationship Specialty Start Date End Date Rubi Osuna MD [address] [place] [address] PCP - General Family Medicine 11/17/13 05/24/25 Chris Rodriguez CNP [address] [place] [address] PCP - General Family Medicine 05/25/25 documented as of this encounter
--- OUTSIDE RECORDS SUMMARY | 2025-09-22 10:14 | XMS_ITS | Encounter Summary ---
Author Organization [employer] Address [address] [facility] 7t [place] [address] Care Team Providers Care Baseball Glove Stuffer Name Role Phone Rubi Osuna MD Primary Care Provider [phone] Chris Rodriguez CNP Primary Care Provider [phone] Encounter Details Date Type Department Care Team (Latest Contact Info) Description 02/06/2019 Abstract [facility] CONVERSIONS Dental, Provider, DDS Social History Tobacco [...] on filedocumented in this encounter Care Teams Baseball Glove Stuffer Relationship Specialty Start Date End Date Rubi Osuna MD [address] [place] [address] PCP - General Family Medicine 11/17/13 05/24/25 Chris Rodriguez CNP [address] [place] [address] PCP - General Family Medicine 05/25/25 documented as of this encounter
--- OUTSIDE RECORDS SUMMARY | 2025-09-22 10:14 | XMS_ITS | Encounter Summary ---
Author Organization [employer] Address [address] [facility] [address] [place] [address] Care Team Providers Care Pbx Wire Chief Name Role Phone Rubi Osuna MD Primary Care Provider [phone] Chris Rodriguez CNP Primary Care Provider [phone] Reason for Visit * Reason Onset Date Comments insurance 05/02/2024 Encounter Details Date Type Department Care Team (Late st Contact Info) Description 05/02/2024 Telephone [facility] [address] [place], [place] [phone] Devin Wilcox insurance Social History Tobacco Use [...] documented as of this encounter Care Teams Pbx Wire Chief Relationship Specialty Start Date End Date Rubi Osuna MD [address] [place] [address] PCP - General Family Medicine 11/17/13 05/24/25 Chris Rodriguez CNP [address] [place] [address] PCP - General Family Medicine 05/25/25 documented as of this encounter
--- OUTSIDE RECORDS SUMMARY | 2025-09-22 10:14 | XMS_ITS | Encounter Summary ---
Author Organization [employer] Address 75 [facility] 7t [place] [address] Care Team Providers Care Parts Room Associate Name Role Phone Rubi Osuna MD Primary Care Provider [phone] Chris Rodriguez CNP Primary Care Provider [phone] Reason for Visit * Reason Comments Med Refill Encounter Details Date Type Department Care Team ([facility] st Contact Info) Description 01/02/2025 Refill [facility] MEDICINE [address] [place] [address] Rubi Osuna MD [address] [place], [place] [phone] Social History Tobacco Use Types Packs/Day Years [...] documented as of this encounter Care Teams Parts Room Associate Relationship Specialty Start Date End Date Rubi Osuna MD [address] [place] [address] PCP - General Family Medicine 11/17/13 05/24/25 Chris Rodriguez CNP [address] [place] [address] PCP - General Family Medicine 05/25/25 documented as of this encounter
--- OUTSIDE RECORDS SUMMARY | 2025-09-22 10:14 | XMS_ITS | Encounter Summary ---
Author Organization [employer] Address [address] [facility] [address] 7t [place] [address] Care Team Providers Care Pilot Supervisor Name Role Phone Rubi Osuna MD Primary Care Provider [phone] Chris Rodriguez CNP Primary Care Provider [phone] Reason for Visit * Reason Onset Date Comments insurance inactive? 08/10/2024 Encounter Details Date Type Department Care Team (Late st Contact Info) Description 08/10/2024 Telephone [facility] [address] [place], [place] [phone] Devin Wilcox insurance inactive? Social History Tobacco [...] but states that the insurance is active. [facility] net front end developer [facility] will contact Dental blue to verify [...] documented as of this encounter Care Teams Pilot Supervisor Relationship Specialty Start Date End Date Rubi Osuna MD [address] [place] [address] PCP - General Family Medicine 11/17/13 05/24/25 Chris Rodriguez CNP [address] [place] [address] PCP - General Family Medicine 05/25/25 documented as of this encounter
--- OUTSIDE RECORDS SUMMARY | 2025-09-22 10:14 | XMS_ITS | Encounter Summary ---
Author Organization [employer] Address [address] [facility] [address] 7t [place] [address] Care Team Providers Care Batch Maker Name Role Phone Chris Rodriguez LAURA Primary Care Provider [phone] Reason for Visit * Reason Comments Med Refill Encounter Details Date Type Department Care Team ([facility] st Contact Info) Description 07/05/2025 Refill [facility] MEDICINE [address] [place] [address] Tisha East FNP [address] [place] [address] Social History Tobacco Use Types Packs/Day Years Used Date Smoking Tobacco: Some Days Cigarettes Alcohol Use Standard Drinks/Week Comments Not [...] encounter Miscellaneous Notes * Telephone Encounter - Chris Rodriguez CNP - 07/06/2025 4:17 PM EDT Approving, but needs appt for additional refills. documented in this encounter Plan of Treatment Not on file documented as of this encounter Visit Diagnoses Not on filedocumented in this encounter Additional Health Concerns Assessment Noted Time PHQ-9 Depression Total Score: 1 05/26/20 23 10:03 AM EDT documented as of this encounter Care Teams Batch Maker Relationship Specialty Start Date End Date Chris Rodriguez CNP PCP - General Family Medicine 05/25/25 documented as of this encounter
--- OUTSIDE RECORDS SUMMARY | 2025-09-22 10:14 | XMS_ITS | Encounter Summary ---
Author Organization [employer] Address [address] [facility] 7t [place] [address] Care Team Providers Care Document Improvement Specialist Name Role Phone Rubi Osuna MD Primary Care Provider [phone] Chris Rodriguez CNP Primary Care Provider [phone] Encounter Details Date Type Department Care Team (Late st Contact Info) Description 08/28/2024 Orders Only [facility] [address] [place], [place] [phone] Provider, MD Karina Social History Tobacco Use [...] documented as of this encounter Care Teams Document Improvement Specialist Relationship Specialty Start Date End Date Rubi Osuna MD [address] [place] [address] PCP - General Family Medicine 11/17/13 05/24/25 Chris Rodriguez CNP [address] [place] [address] PCP - General Family Medicine 05/25/25 documented as of this encounter
--- OUTSIDE RECORDS SUMMARY | 2025-09-22 10:14 | XMS_ITS | Encounter Summary ---
Author Organization [employer] Address 75 [facility] 7t [place] [address] Care Team Providers Care Toilet And Laundry Soap Supervisor Name Role Phone Rubi Osuna MD Primary Care Provider [phone] Chris Rodriguez CNP Primary Care Provider [phone] Reason for Visit * Reason Comments Med Refill Encounter Details Date Type Department Care Team ([facility] st Contact Info) Description 12/11/2024 Refill [facility] MED [facility] PEDS [address] [place], [place] [phone] Rubi Osuna MD [address] [place] [address] Social History Tobacco Use Types Packs/Day Years [...] documented as of this encounter Care Teams Toilet And Laundry Soap Supervisor Relationship Specialty Start Date End Date Rubi Osuna MD [address] [place] [address] PCP - General Family Medicine 11/17/13 05/24/25 Chris Rodriguez CNP [address] [place] [address] PCP - General Family Medicine 05/25/25 documented as of this encounter
--- OUTSIDE RECORDS SUMMARY | 2025-09-22 10:15 | XMS_ITS | Clinical Summary ---
Author Organization [employer] Address [address] [facility] 7t [place] [address] Care Team Providers Care Spring Inspector Name Role Phone Chris Rodriguez BODY TRIMMER Primary Care Provider [phone] Allergies No known active allergies Medications Fluticasone Propionate, Inhal, 100 MCG/ACT aerosol powder 2 times daily. Activ e albuterol (5 MG/ML) 0.5% nebulizer solution as directed Active Calcium 600+D3 600-20 MG-MCG tablet Take 1 tablet by mouth in the morning. 3 Active Prolia 60 MG/ML solution prefilled syringe 3 Active entecavir (Baraclude) 0.5 MG tablet daily. Active Fluticasone-Ume clidin-Vilant (Trelegy Ellipta) 100-62.5-25 MCG/ACT aerosol powder daily. 2 Active Trelegy Ellipta 100-62.5-25 MCG/ACT aerosol powder INHALE 1 PUFF BY MOUTH AT THE SAME TIME EVERY DAY 3 Active ibuprofen 800 MG tablet 3 times a day. 2 Active loratadine (Claritin) 10 MG tablet daily. Active omeprazole (PriLOSEC) [address] capsule daily. 2 Active pantoprazole (ProtoNix) 40 MG EC tablet Take 40 mg by mouth in the morning. 3 Active prazosin (Minipress) 1 MG capsule TAKE 1 CAPSULE(1 MG) BY MOUTH AT BEDTIME 30 capsule 11 4 Active Fluticasone-Ume clidin-Vilant (Trelegy Ellipta) 100-62.5-25 MCG/ACT aerosol powder INHALE 1 PUFF BY MOUTH AT THE SAME TIME EVERY DAY 60 each 3 4 Active cyanocobalamin (Vitamin B-12) 500 MCG tabletIndicatio ns:Vitamin deficiency TAKE 1 TABLET(500 MCG) BY MOUTH IN THE MORNING 90 tablet 5 Active thiamine (,Vitamin B-1,) 100 MG tabletIndicatio ns:Vitamin deficiency TAKE 1 TABLET BY MOUTH EACH MORNING 90 tablet 5 Active sertraline (Zoloft) 25 MG tablet TAKE 1 TABLET BY MOUTH EVERY DAY 30 tablet 5 Active folic acid (Folvite) 1 MG tablet TAKE 1 TABLET(1000 MCG) BY MOUTH IN THE MORNINGTAKE 1 TABLET(1000 MCG) BY MOUTH IN THE MORNING 90 tablet 5 Active albuterol 108 (90 Base) MCG/ACT inhaler INHALE 2 PUFFS BY MOUTH EVERY 6 HOURS NEEDED FOR WHEEZING 18 g 5 Active Active Problems Problem Noted Date Diagnosed Date Colonoscopy refused 05/18/2023 Dysphagia 05/18/2023 Gastroesophageal reflux disease without esophagi tis 05/18/2023 Chronic obstructive lung disease 10/16/2021 Hoarse 10/16/2021 Rheumatoid arthritis (CMS/HCC) 10/16/2021 Alcohol abuse 07/30/2014 Tobacco dependence syndrome 07/30/2014 Encounters Date Type Department Care Team Description 09/10/2025 Refill [facility] MEDICINE [address] [place] [address] Chris Rodriguez CNP 07/05/2025 Refill [facility] MEDICINE [address] [place], [place] [phone] Tisha East FNP from Last 3 Months Immunizations Immunization Administration [...] 1980 Cervical Cancer Screening 1989 HPV/Cotest 1989 RSV Patients and Patients Aged 60 years or older (1 - Risk 50-74 years 1-dose series) 2009 Zoster Vaccines (1 of 2) 2009 Hepatitis B Vaccines (1 of 3 - Risk 3-dose series) 2019 Depression Screening 05/26/2024 05/26/2023, 05/26/20 SDOH Screening 05/26/2024 05/26/2023 COVID-19 Vaccine ( season) 2025 07/10/2023, 01/31/2021, 01/03/2021 Influenza Vaccine (#1) 2025 [...] AM EDT Narrative 07/20/2024 8:57 AM EDT [facility] [address] [place] [address] Dr. Vargas, [place] [address] Mammography Report Signed Patient: Seng Lynne MR#: [id number] : 1960 Acct:[id number] Age/Sex: 63 / F ADM Date: 07/08/24 Loc: [facility] Attending Dr: Rubi Osuna MD Ordering Physician: Rubi Osuna MD Results: 1Negati ve Date of Service: 07/08/24 Follow Up: 1 Year From Orig inal Mammogram Procedure(s): MM tomosynthesis screening BI Accession Number(s): [id number] cc: Rubi Osuna MD EXAMINATION: MM SCREENING [...] 07/20/24 0855 DD/ 0800 TD/TT: 07/08/24 0815 Cloud Services Architect: Procedure Note Donotuseinterpreter, Image - 07/20/20[facility] [address] [place], [place] [address] Mammography Report Signed Patient: Seng LynneMR#: [id number] : 9Acct:[id number] Age/Sex: 63 / FADM Date: 07/08/24 Loc: HO.MAMMO Attending Dr: Rubi Osuna MD Ordering Physician: Rubi Osuna MDResults: 1Negati ve Date of Service: 07/08/24Follow Up: 1 Year From Orig inal Mammogram Procedure(s): MM tomosynthesis screening BI Accession Number(s): [id number] cc: Rubi Osuna MD EXAMINATION: MM SCREENING [...] DO 07/20/2024 08:55 AM EDT RP Workstation: [employer] Dictated By: Lilia Caceres DO Signed By: <Electronically signed by Lilia Caceres DO in OV> 07/20/24 0855 DD/ 0800 TD/TT: 07/08/24 0815 Cloud Services Architect: Rubi Osuna MD IMG BI PROCEDURES Edited Result - Final * Hepatitis C Ab (06/06/2024 11:58 AM EDT) Pathologist [facility] Hepatitis C Antibody Nonreactive Nonreactive [facility] Comment:Antibodies to HCV no t detected; does not exclude early acuteHCV infection. 06/06/2024 11:5 8 AM EDT 06/06/2024 12:03 PM EDT us Generic External Data Provider LAB BLOOD ORDERAB LES Final Result [facility] [address] [place] [phone] * (ABNORMAL) LIPID PANEL, STANDARD (11/10/2021 9:17 AM EST) Pathologist [facility] Chol/HDLC Ratio 2.5 <5.0 (calc) [facility] Cholesterol, Total 248(H) <200 mg/dL [facility] HDL Cholesterol 98 > OR = 50 mg/dL [facility] LDL Cholesterol 131(H) mg/dL (calc) [facility] Comment: Reference range: <100 Desirable range <100 mg/dL for primary prevention; <70 mg/dL for patients with CHD or diabetic patients with > or = 2 CHD risk factors. LDL-C is now calculated using the Luh calculation, which is a validated novel method providing better accuracy than the Friedewald equation in the estimation of LDL-C. Jose Martin SS et al. JYOTI. 2013;310(19): 6629-0595 (http://education.tarpipe.Kahub/faq/OBP158) Non-HDL Cholesterol 150(H) <130 mg/dL (calc) [facility] Comment: For patients with diabetes plus 1 major ASCVD risk factor, treating to a non-HDL-C goal of <100 mg/dL (LDL-C of <70 mg/dL) is considered a therapeutic option. Triglycerides 88 <150 mg/dL [facility] 11/10/2021 9:17 AM EST us Luisa Rodgers MD LAB BLOOD ORDERABLES Final Re sult [facility] [address] from Last 3 Months or Most Recently Relevant to Health Maintenance Insurance [employer] - [employer] [place] [employer] [place] * Guarantor: Seng Lynne Account Type Relation to Patient Date of Phone Billing Address Personal/Family Self [address] [place] Care Teams Spring Inspector Relationship Specialty Start Date End Date Chris Rodriguez CNP PCP - General Family Medicine 05/25/25
--- OUTSIDE RECORDS SUMMARY | 2025-09-22 10:15 | XMS_ITS | Encounter Summary ---
Author Organization [employer] Address [address] [facility] 7t [place] [address] Care Team Providers Care Tungsten Refiner Name Role Phone Rubi Osuna MD Primary Care Provider [phone] Chris Rodriguez CNP Primary Care Provider [phone] Reason for Visit * Reason Comments Med Refill Encounter Details Date Type Department Care Team ([facility] st Contact Info) Description 02/04/2023 Refill [facility] CHC MED & PEDS [address] [place], [place] [phone] Riana Zimmer MD [address] [place], [place] [phone] Social History Tobacco Use Types Packs/Day Years [...] on filedocumented in this encounter Care Teams Tungsten Refiner Relationship Specialty Start Date End Date Rubi Osuna MD [address] [place], [place] [phone] PCP - General Family Medicine 11/17/13 05/24/25 Chris Rodriguez CNP [address] [place], [place] [phone] PCP - General Family Medicine 05/25/25 documented as of this encounter
--- OUTSIDE RECORDS SUMMARY | 2025-09-22 10:15 | XMS_ITS | Data Portability ---
Author Organization [place] - [facility], Allergy Address [address] [place] [address] Care Team Providers Care Orchid Hand Name Role Phone [facility] Primary Care Provider [phone] Assessment Encounter Date Assessment Date Assessment LastModified [...] Organization Details Last Modified Time Details Appointments None record ed. Lab None record ed. Referral None record ed. Procedures None record ed. Surgeries None record ed. Imaging None record ed. Medication Orders None record ed. Patient TargetsNo targets recorded. Patient Instructions Encounter Date Encounter Id Patient Instructions Last Modified By Organization Details Last Modified Time 05/31/2025 [id number] Please note: Parts of this encounter note have been generated by AI based on audio conversation. Patient consent was required prior to utilizing this technology. Content review was required prior to finalizing the note. [email or web address] Not available 05/31/2025 09:24:15 Reason for Referral None Reported. 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 Polyp of vocal cord and larynx; Note: Date Diagnosed : 09/22/2023 4:26 PM (J38.1) ERICK TERRY MD [address] [facility] [place],[address], [place], [address] , [place] - [facility] 15:06:01 Stomatiti s 13210334 Active 2023 Oral thrush; Note: Date Diagnosed : 01/20/2024 11:27 AM (B37.0) Not Available [facility] 03:20:40 Candidias is of mouth 72845588 Active 2023 Oral thrush; Note: Date Diagnosed : 01/20/2024 11:27 AM (B37.0) Not Available [facility] 03:20:40 Tobacco dependenc e caused by cigarette s 75613489945 719216 Active 2023 ERICK TERRY MD [address] [facility] [place] [address], [place], [address] , [facility] - [facility] 10:00:32 Problem Notes None recorded. Procedures Surgical History Date Name Laterality Status Provider Name and Address Organization Details Recorded Time 05/31/2025 FOL_DP completed ERICK TERRY MD [address] [facility],[place] [address], [place], [address], [place] - [facility] 05/31/2025 09:24:37 11/29/2024 FOL_DP completed ERICK TERRY MD [address] [place] [address],[place] [address], [place], [address], [facility] - [facility] 11/28/2024 17:01:02 05/25/2024 FOL_DP completed ERICK TERRY MD [address] [facility],[place] [address], [place], [address], [facility] - [facility] 05/25/2024 09:57:21 Imaging Results None recorded. Procedure Notes None recorded. Medical Equipment None Reported. Allergies No known drug allergies Medications Name Sig Start Date Stop Date Status Note LastModified by Organization Details LastModified Time b-1 100 mg tabs 11/29 completed Not [...] mg tablet 09/22 completed Medicati on ID: [id number] D uration Value: 30 Brand Name: predniso ne Send Method: E-Prescr ibed Sub s Allowed: subs OK Medic ationGen ericName : predniso ne Not Available Not Available Not Available cyanocoba meño (vit B-12) 500 mcg tablet active Not Available Not Available Not Available methotrex ate sodium 2.5 mg tablet 09/22 completed Medicati on ID: [id number] D uration Value: 28 Brand Name: methotre xate sodium S end Method: E-Prescr ibed Sub s Allowed: subs OK Medic ationGen ericName : methotre xate sodium Not Available Not Available Not Available IBU 600 mg tablet 09/22 completed Medicati on ID: [id number] D uration Value: 10 Brand Name: IBU [...] layed release 11/29 completed Medicati on ID: [id number] B rand Name: bisacody l Send Method: [...] spray,royce pension 09/22 completed Medicati on ID: [id number] D uration Value: 30 Brand Name: fluticas one propiona te Send Method: E-Prescr ibed Sub s Allowed: subs OK Medic ationGen ericName : fluticas one propiona te Not Available Not Available Not Available loratadin e 10 mg tablet active Medicati on ID: [id number] B rand Name: loratadi ne Send Method: E-Prescr ibed Sub s Allowed: subs OK Speci al Instruct ion: TAKE 1 TABLET BY MOUTH EVERY DAY Medi cationGe nericNam e: loratadi ne Not Available Not Available Not Available entecavir 0.5 mg tablet TAKE 1 TABLET BY MOUTH EVERY DAY active Not Available Not Available No t Available diclofena c 1 % topical gel APPLY 4 GRAMS TOPICALL Y FOUR TIMES DAILY TO HAND JOINTS active Not Available Not Available No t Available calcium 600 mg (as carbonate )-vitamin [...] Updated DateTime 11/29/2024 162.56 cm 20.8 kg/m2 62005.68 g Brandi Verdin [place] - [facility] 11/29/2024 09:19:04 Date Recorded Body height Body mass index (BMI) Body weight Provider Name and Address Organization Details Last Updated DateTime 05/25/2024 162.56 cm 20.1 kg/m2 30724.31 g Aurora Austin [place] - [facility] 05/25/2024 09:50:28 Date Recorded Body height Body mass index (BMI) Body weight Provider Name and Address Organization Details Last Updated DateTime 05/31/2025 162.56 cm 20.4 kg/m2 06798.49 g ANAHI ROSAS [place] - [facility] 05/31/2025 09:12:59 Social History None recorded. Functional Status None recorded. Mental Status None recorded. Family History Nothing Reported. Medical History No medical history recorded. Gynecological HistoryNo gynecological history recorded. Obstetrics History GPAL:G 0 P 0 0 0 0 Past Encounters Encounter ID Performer Location Encounter Start Date Encounter Closed Date Diagnosis/Indication Diagnosis SNOMED-CT Code Diagnosis ICD10 Code Diagnosis IMO Codes Diagnosis Note [id number] ERICK TERRY MD [facility] [address] [address] 05/25/2024 09:41:35 05/25/2024 10:00:21 Polyp of vocal cord or larynx 020824437 J38.1 Tobacco de pendence caused by cigarettes 3116025728 4073678 F17.210 [id number] ERICK TERRY MD [facility] [address] [address] 11/29/2024 09:09:07 11/29/2024 09:31:15 Polyp of vocal cord or larynx 743090058 J38.1 Tobacco de pendence caused by cigarettes 3206323102 3032110 F17.210 [id number] ERICK TERRY MD [facility] [address] [address] 05/31/2025 09:00:34 05/31/2025 09:33:45 Polyp of vocal cord or larynx 179974006 J38.1 Fiberoptic laryngosco py shows very mild edema of the true vocal cords bilaterall y. There is no polyp or nodular changes. Her voice quality appears improved with a slight raspy. Encouraged continued efforts at smoking cessation as this likely continues to contribute to her Renke edema. Her descriptio n of vocal fatigue may be more related to pulmonary changes as she does feel some improvemen t when she uses inhaler. Tobacco de pendence caused by cigarettes 8341509271 5089225 F17.210 Health Concerns Section Related Observation LastModified by Organization Detai ls LastModified Time None Recorded Concern Status LastModified by Organization Details LastModified Time None Recorded Advance Directives Directive None Recorded Payers Insurance Date Sequence Insurance Name Policy Number Policy Nguyen Covered Member ID Nguyen Member ID Guarantor Name 09/04/2025 1 [employer] [facility] ([id number]) [id number] [address] [id number] Seng Saucedo Notes Date Note Type Note Provider Name and Address Organization Details Recorded Time 05/25/2024 text/html ROS as noted in the HPI Bilateral renke edema11/08/23 right vocal cord stripping - path benign vocal polyp01/10/24 left vocal cord strippingpath - focal spongiosis, 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 has been singing with her band again.feels a tickle in throat can trigger a cough that is non productive 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 cig daily ERICK TERRY MD [address] [facility],[address], [address], [place] - [facility] 05/25/2024 10:00:57 11/29/2024 text/html ROS as noted in the HPI Bilateral renke edema11/08/23 right vocal cord stripping [...] smoking cessation recommended ERICK TERRY MD [address] [facility],[address], [address], [place] - [facility] 11/29/2024 09:31:54 05/31/2025 text/html ROS as noted in the HPI Bilateral renke edema11/08/23 right vocal cord stripping - path: benign vocal polyp01/10/24 left vocal cord stripping -path: focal spongiosis, 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 smoking cessation recommended ERICK TERRY MD [address] [place] [address], [place], [address], [facility] - [facility] 05/31/2025 09:27:41 OBGyn Episode No OBEpisode recorded.
--- OUTSIDE RECORDS SUMMARY | 2025-09-22 10:15 | XMS_ITS | Encounter Summary ---
Author Organization [employer] Address [address] [facility] 7t [place] [address] Care Team Providers Care Sample Color Maker Name Role Phone Rubi Osuna MD Primary Care Provider [phone] Chris Rodriguez CNP Primary Care Provider [phone] Reason for Visit * Reason Comments Med Refill Encounter Details Date Type Department Care Team ([facility] st Contact Info) Description 01/28/2023 Refill [facility] CHC MED & PEDS [address] [place], [place] [phone] Riana Zimmer MD [address] [place] [address] Social History Tobacco Use Types Packs/Day Years [...] 9:55 AM EDT Pharmacy should send to [facility] practice Not seen here Please call [phone] documented in this encounter Plan of Treatment Not on file documented as of this encounter Visit Diagnoses Not on filedocumented in this encounter Care Teams Sample Color Maker Relationship Specialty Start Date End Date Rubi Osuna MD [address] [place] [address] PCP - General Family Medicine 11/17/13 05/24/25 Chris Rodriguez CNP [address] [facility] [place] [address] PCP - General Family Medicine 05/25/25 documented as of this encounter
== END 2025-09-22 10:13 | disposition home or self-care (01) ==
LOC: HO.MAMMO 10:12
PROVIDERS: Visit Provider Student in an Organized Health Care Education/Training Program
DX: Z12.31 Encounter for screening mammogram for malignant neoplasm of breast (principal)
CPT/HCPCS: 77063; 77067

== ENCOUNTER → 2025-09-22 10:15 | Outpatient (BNV) | payer OTHER, SELFPAY | PROVIDERS: Visit Provider Internal Medicine | DX: Z12.31 Encounter for screening mammogram for malignant neoplasm of breast (principal) | CPT/HCPCS: 77063; 77067 ==